=== PATIENT | male | born 1975 | race Caucasian/White ===

== ENCOUNTER → 2017-03-29 | Outpatient (CLI) | payer OTHER ==
[~2017-03-29] MED LIST: ACET-1256 PO; ASPI325T45 PO; EPP3/2 IM; KLN5X PO; NAPR-1169 PO
--- NOTE | 2017-03-29 16:46 | DIAGNOSTIC IMAGING REPORT ---
(CHEST) THORAX WITHOUT, ABDOMEN NO IV/ORAL CONT (CT) CT DOSE: 1711.32 mGy.cm HISTORY: Generalized abdominal PAIN, GASTRITIS, left upper quadrant PAIN TECHNIQUE: Multiaxial CT images of the chest were performed without contrast. A dose lowering technique was utilized adhering to the principles of ALARA. COMPARISON: None. FINDINGS: The central airways are patent. No pleural effusions. No pneumothorax. The lungs are clear. No fractures within the visualized osseous structures. The heart is normal in size. Normal caliber thoracic aorta. No mediastinal or hilar lymphadenopathy. No pneumoperitoneum or pneumatosis. No fractures within the visualized osseous structures of the abdomen. The unenhanced liver, gallbladder, pancreas, spleen, and adrenal glands are unremarkable. No renal stones. No hydronephrosis. A 3.8 cm hypodense lesion within the right kidney. This likely represents a cyst. A left circumaortic renal vein. No retroperitoneal lymphadenopathy. The visualized loops of bowel show no wall thickening or obstruction. There are few colonic diverticula. IMPRESSION: No significant abnormality within the chest or abdomen. Electronically signed by: Ab Thompson M.D. 03/29/2017 4:45 PM Dictated Date/Time: 03/29/2017 4:35 PM
== END | disposition home or self-care (01) ==
LOC: C.CTS 16:19
PROVIDERS: ATTEND Internal Medicine
DX: I10 Essential (primary) hypertension (principal); K29.70 Gastritis, unspecified, without bleeding; R10.9 Unspecified abdominal pain

== ENCOUNTER 2020-06-07 10:10 | Inpatient (IN) ==
[2020-06-07] MEDS ORDERED: PROMETHAZINE 25 MG/51 ML BAG IV STA (10:55)
[2020-06-07] MEDS ORDERED: HYDROmorphone INJ 0.5 MG/0.5 ML SYR IV STA ×2 (10:55→11:59)
--- NOTE | 2020-06-07 11:07 | Emergency Department Note ---
History of Present Illness General Chief complaint: Abdominal Pain Stated complaint: pancreatis/intense pain Time Seen by Provider: 06/07/20 10:44 Source: patient Mode of arrival: ambulatory Limitations: no limitations History of Present Illness Provider complaint: "pancreatitis" Onset (ago): hour(s) 2 Maximum Pain Intensity: 5 44-year-old male patient with significant past medical history of pancreatitis presents to the emergency department today with complaints of "pancreatitis". The patient reports nausea, epigastric abdominal pain, and hiccups. He states these began 2-1/2 hours prior to arrival. Patient denies any associated fever. He has had the same symptoms in the past, though less intense associated with acute pancreatitis. He states often, his pancreatitis flares up to 2 due to hydration. He denies eating fatty foods or drinking any alcohol recently. The patient did take 1 dose of Zofran 2 hours ago and denies improvement in his symptoms. The patient denies any urinary symptoms including blood, burning, frequency, hesitancy. He denies any diarrhea. He states he feels constipated, though his last bowel movement was today. He denies any associated vomiting. Patient does admit to smoking "medical marijuana". He states he was unable to take his pain medicine or his Phenergan by mouth due to his nausea and pain this morning. Patient denies any associated chest pain. He denies dyspnea. No recent fever. He rates his pain a 5/10 and describes it as sharp. Home Medications Medication Instructions Recorded Confirmed Type ondansetron 8 mg TRANSLINGUAL Q6 PRN 01/19/18 06/07/20 History dextroamphetamine-amphetamine 5 mg PO DAILY 03/16/20 06/07/20 History ibuprofen 800 mg PO TIDM 03/16/20 06/07/20 History promethazine 25 mg PO Q6 PRN 03/16/20 06/07/20 History oxycodone 5 mg PO Q4H PRN 06/07/20 06/07/20 History ropinirole 0.25 mg PO BID PRN 06/07/20 06/07/20 History sertraline 50 mg PO QAM 06/07/20 06/07/20 History Allergies Allergy/AdvReac Type Severity Reaction Status Date / Time hydrochlorothiazide AdvReac Severe PANCREATITI Verified 06/07/20 12:47 S Iodinated Contrast Media AdvReac Severe SNEEZE (CT Verified 06/07/20 12:47 dye) ketorolac AdvReac Unknown GI SYMPTOMS Verified 06/07/20 12:47 tramadol AdvReac Unknown "ears Verified 06/07/20 12:47 sensitive" morphine AdvReac Nausea Verified 06/07/20 12:47 Past Med/Surg History Medical History Depression Depression HTN (hypertension) Hypertension Mild obstructive sleep apnea SUDHA (obstructive sleep apnea) Recurrent pancreatitis Renal cyst Restless leg syndrome Surgical History (Updated 06/07/20 @ 13:16 by Erlinda Bhagat PA-C) H/O hemorrhoidectomy H/O wisdom tooth extraction History of cholecystectomy History of tonsillectomy Family History Mother Asthma Father Hypertension Prostate cancer Social History Smoking Status: Former smoker Number of Years Since Quit: 20; Second Hand Exposure: No; Do You Dip or Chew Tobacco: No; Hx Alcohol Use: No Hx Substance Use: No Preferred Language: Cymro Communication Ability: Effective Sport Internship Required: No Beliefs That Will Affect Care: None marital status: Current Living Situation: Spouse Other Information That Helps Us Care for You: No Feels Safe at Home: Yes Safety Concerns: Feels Safe At This Time Assistive Devices: Glasses Review of Systems A total of 10 systems reviewed and were otherwise negative Physical Exam Vital Signs Vital Signs - 24 hr 06/07/20 10:17 06/07/20 11:20 06/07/20 11:21 Temperature 36.3 C L Temperature Source Temporal Artery Scan Pulse Rate 61 77 Pulse Rate from SpO2 Sensor 79 Respiratory Rate 18 19 Respiratory Depth Normal Blood Pressure 141/111 H 202/137 H Blood Pressure Mean 121 158 Pulse Oximetry 100 99 Oxygen Delivery Method Room Air Room Air Room Air Sepsis Recent Fever Within 48 Hours No Sepsis New/Unexplained Change in Mental Status N/A Sepsis Action Taken by Nursing No Action Required 06/07/20 11:22 06/07/20 11:30 06/07/20 11:40 Temperature Temperature Source Pulse Rate 67 61 65 Pulse Rate from SpO2 Sensor 69 62 64 Respiratory Rate 14 10 L 13 Respiratory Depth Blood Pressure 187/121 H Blood Pressure Mean 143 Pulse Oximetry 100 95 98 Oxygen Delivery Method Room Air Room Air Room Air Sepsis Recent Fever Within 48 Hours Sepsis New/Unexplained Change in Mental Status Sepsis Action Taken by Nursing 06/07/20 11:50 06/07/20 12:00 06/07/20 12:01 Temperature Temperature Source Pulse Rate 58 L 60 79 Pulse Rate from SpO2 Sensor 58 L 59 L 61 Respiratory Rate 14 15 14 Respiratory Depth Blood Pressure 183/124 H Blood Pressure Mean 143 Pulse Oximetry 95 96 92 Oxygen Delivery Method Room Air Room Air Room Air Sepsis Recent Fever Within 48 Hours Sepsis New/Unexplained Change in Mental Status Sepsis Action Taken by Nursing 06/07/20 12:10 06/07/20 12:20 Temperature Temperature Source Pulse Rate 65 49 L Pulse Rate from SpO2 Sensor 65 49 L Respiratory Rate 10 L Respiratory Depth Blood Pressure Blood Pressure Mean Pulse Oximetry 100 99 Oxygen Delivery Method Room Air Room Air Sepsis Recent Fever Within 48 Hours Sepsis New/Unexplained Change in Mental Status Sepsis Action Taken by Nursing VITALS: Vitals are noted on the nurse's note and reviewed by myself. Vital signs stable. GENERAL: This is a 44-year-old white male, diaphoretic, moving throughout the room, bending over onto the bed on his knees, well-developed well-nourished. SKIN: The skin was without rashes, erythema, edema, or bruising. There is no tenting of the skin. Capillary refill less than 2 seconds. HEAD: Normocephalic atraumatic. EYES: Conjunctivae without injection, sclerae without icterus. NECK: Supple without nuchal rigidity. No lymphadenopathy. No JVD. HEART: Regular rate and rhythm without murmurs gallops or rubs. LUNGS: Clear to auscultation bilaterally without wheezes, rales or rhonchi. No retractions or accessory muscle use. ABDOMEN: Pt. states "Don't touch my abdomen". Refuses any examination. MUSCULOSKELETAL: No muscle atrophy, erythema, or edema noted. Full range of motion without joint tenderness in all extremities. No tenderness to palpation. Normal gait. Strength 5/5 throughout. NEURO: Patient was alert and oriented to person place and time. No focal neurological deficits. Course Course The patient was seen and evaluated as above. An order was placed for continuous cardiac monitoring. The monitor shows a normal sinus rhythm at a rate of 76 bpm. IV access obtained, labs drawn. Patient medicated with IV Dilaudid and Phenergan. Imaging performed and reviewed by myself and radiologist as noted. Labs reviewed by myself. I discussed the findings with the patient at bedside. He is continuing to complain of nausea and pain. He was medicated with a repeat dose of IV Dilaudid and Zofran. I discussed case with the electrical construction project manager. I [facility] to see and evaluate the patient for admission. Administered Medications Lactated Ringer's (Lr) 1,000 mls @ 200 mls/hr IV .Q5H DEE DEE Stop: 07/07/20 15:11 Last Admin: 06/07/20 15:58 Dose: 200 mls/hr Documented by: [id number] Discontinued Medications Hydromorphone HCl (Hydromorphone Inj 0.5 Mg/0.5 Ml Syr) 0.5 mg IV NOW STA Stop: 06/07/20 10:56 Last Admin: 06/07/20 11:16 Dose: 0.5 mg Documented by: [id number] Hydromorphone HCl (Hydromorphone Inj 0.5 Mg/0.5 Ml Syr) 0.5 mg IV NOW STA Stop: 06/07/20 12:00 Last Admin: 06/07/20 12:08 Dose: 0.5 mg Documented by: [id number] Promethazine HCl (Phenergan) 25 mg in 51 mls @ 204 mls/hr IV NOW STA Stop: 06/07/20 11:09 Last Infusion: 06/07/20 11:40 Dose: 0 mls/hr Documented by: [id number] Admin: 06/07/20 11:16 Dose: 204 mls/hr Documented by: [id number] Sodium Chloride (Nss 1000ml) 1,000 mls @ 999 mls/hr IV .Q1H1M ONE Stop: 06/07/20 13:18 Last Infusion: 06/07/20 14:01 Dose: 0 mls/hr Documented by: [id number] Admin: 06/07/20 12:58 Dose: 999 mls/hr Documented by: [id number] Ondansetron HCl (Ondansetron Inj 2 Mg/Ml 2 Ml Vial) 4 mg IV NOW STA Stop: 06/07/20 12:00 Last Admin: 06/07/20 12:08 Dose: 4 mg Documented by: [id number] Potassium Chloride (Potassium Chloride 10 Meq / 100ml Wtr) Confirm Administered Dose 20 meq IV .STK-MED ONE Stop: 06/07/20 12:51 Last Admin: 06/07/20 12:58 Dose: 20 meq Documented by: [id number] Medical Decision Making Differential Diagnosis Etiologies such as appendicitis, diverticulitis, obstruction, inflammatory bowel disease, renal colic, PUD, biliary pathology, pancreatitis, mesenteric ischemia, aortic pathology, infections, genitourinary, UTI, perforated viscus, as well as others were entertained. Medical Records Attestation: I reviewed the patient's medical records. Home Medications Current Medication List: was personally reviewed by me Laboratory Data Attestation: I reviewed the patient's lab results. Leukocytosis of 18,000. No anemia or thrombocytopenia. Renal, hepatic function electrolytes without significant abnormality. Troponin negative. Lipase greater than 3000. Alcohol negative. COVID-19 testing negative. Urinalysis negative for blood or evidence of infection. Result diagrams: 06/07/20 11:20 06/07/20 11:20 Lab Results 06/07/20 06/07/20 06/07/20 Range/Units 11:20 11:20 11:20 WBC 18.62 H (4.8-10.8) K/uL RBC 5.06 (4.7-6.1) M/uL Hgb 16.2 (14.0-18.0) g/dL Hct 45.1 (42-52) % MCV 89.1 (80-100) fL MCH 32.0 (25-34) pg MCHC 35.9 (32-36) g/dL RDW Std Deviation 42.4 (36.4-46.3) fL RDW Coeff of Che 13.0 (11.5-14.5) % Plt Count 242 (130-400) K/uL MPV 11.4 H (7.4-10.4) fL Immature Gran % (Auto) 0.3 % Neut % (Auto) 73.8 % Lymph % (Auto) 15.9 % [place] % (Auto) 9.5 % Eos % (Auto) 0.3 % Baso % (Auto) 0.2 % Neut # (Auto) 13.75 H (1.4-6.5) K/uL Lymph # (Auto) 2.96 (1.2-3.4) K/uL [place] # (Auto) 1.77 H (0.11-0.59) K/uL Eos # (Auto) 0.06 (0-0.5) K/uL Baso # (Auto) 0.03 (0-0.2) K/uL Immature Gran # (Auto) 0.05 H (0.00-0.02) K/uL Sodium 139 (136-145) mmol/L Potassium 3.0 L (3.5-5.1) mmol/L Chloride 103 (98-107) mmol/L Carbon Dioxide 27 (21-32) mmol/L Anion Gap 9.0 (3-11) BUN 12 (7-18) mg/dl Creatinine 0.96 (0.6-1.4) mg/dl Est Cr Clr Drug Dosing 115.0 ml/min Est GFR ( Amer) 110.2 Est GFR (Non-Af Amer) 95.1 BUN/Creatinine Ratio 12.6 (10-20) Glucose 120 H (70-99) mg/dl Calcium 9.3 (8.5-10.1) mg/dl Total Bilirubin 0.5 (0.2-1) mg/dl AST 25 (15-37) U/L ALT 42 (12-78) U/L Alkaline Phosphatase 73 (45-117) U/L Troponin I < 0.015 (0-0.045) ng/ml Total Protein 7.8 (6.4-8.2) gm/dl Albumin 4.7 (3.4-5.0) gm/dl Globulin 3.1 (2.5-4.0) gm/dl Albumin/Globulin Ratio 1.5 (0.9-2) Lipase 3050 H (73-393) U/L Urine Color Urine Appearance (Clear) Urine pH (4.5-7.5) Ur Specific [place] (1.000-1.030) Urine Protein (Negative) Urine Glucose (UA) (Negative) Urine Ketones (Negative) Urine Blood (Negative) Urine Nitrite (Negative) Urine Bilirubin (Negative) Urine Urobilinogen (Negative) Ur Leukocyte Esterase (Negative) Urine WBC (Auto) (0-5) /hpf Urine RBC (Auto) (0-4) /hpf U Hyaline Cast (Auto) (0-5) /lpf U Epithel Cells (Auto) (0-5) /lpf Urine Bacteria (Auto) (Negative) Ethyl Alcohol mg/dL < 3.0 (0-3) mg/dl COVID-19 Eval Order SARS-CoV-2 (PCR) (Negative) Influenza Type A (PCR) (Neg) Influenza Type B (PCR) (Neg) RSV (RT-PCR) (Neg) 06/07/20 06/07/20 06/07/20 Range/Units 12:18 12:18 12:22 WBC (4.8-10.8) K/uL RBC (4.7-6.1) M/uL Hgb (14.0-18.0) g/dL Hct (42-52) % MCV (80-100) fL MCH (25-34) pg MCHC (32-36) g/dL RDW Std Deviation (36.4-46.3) fL RDW Coeff of Che (11.5-14.5) % Plt Count (130-400) K/uL MPV (7.4-10.4) fL Immature Gran % (Auto) % Neut % (Auto) % Lymph % (Auto) % [place] % (Auto) % Eos % (Auto) % Baso % (Auto) % Neut # (Auto) (1.4-6.5) K/uL Lymph # (Auto) (1.2-3.4) K/uL [place] # (Auto) (0.11-0.59) K/uL Eos # (Auto) (0-0.5) K/uL Baso # (Auto) (0-0.2) K/uL Immature Gran # (Auto) (0.00-0.02) K/uL Sodium (136-145) mmol/L Potassium (3.5-5.1) mmol/L Chloride (98-107) mmol/L Carbon Dioxide (21-32) mmol/L Anion Gap (3-11) BUN (7-18) mg/dl Creatinine (0.6-1.4) mg/dl Est Cr Clr Drug Dosing ml/min Est GFR ( Amer) Est GFR (Non-Af Amer) BUN/Creatinine Ratio (10-20) Glucose (70-99) mg/dl Calcium (8.5-10.1) mg/dl Total Bilirubin (0.2-1) mg/dl AST (15-37) U/L ALT (12-78) U/L Alkaline Phosphatase (45-117) U/L Troponin I (0-0.045) ng/ml Total Protein (6.4-8.2) gm/dl Albumin (3.4-5.0) gm/dl Globulin (2.5-4.0) gm/dl Albumin/Globulin Ratio (0.9-2) Lipase (73-393) U/L Urine Color Yellow Urine Appearance Cloudy A (Clear) Urine pH 7.5 (4.5-7.5) Ur Specific [place] 1.015 (1.000-1.030) Urine Protein Negative (Negative) Urine Glucose (UA) Negative (Negative) Urine Ketones Negative (Negative) Urine Blood Negative (Negative) Urine Nitrite Negative (Negative) Urine Bilirubin Negative (Negative) Urine Urobilinogen Negative (Negative) Ur Leukocyte Esterase Negative (Negative) Urine WBC (Auto) 0 (0-5) /hpf Urine RBC (Auto) 0-4 (0-4) /hpf U Hyaline Cast (Auto) 0 (0-5) /lpf U Epithel Cells (Auto) 0-5 (0-5) /lpf Urine Bacteria (Auto) Negative (Negative) Ethyl Alcohol mg/dL (0-3) mg/dl COVID-19 Eval Order CovFluRsv at [facility] SARS-CoV-2 (PCR) NEGATIVE (Negative) Influenza Type A (PCR) Negative (Neg) Influenza Type B (PCR) Negative (Neg) RSV (RT-PCR) Negative (Neg) Imaging Data Radiologist's Impression: Chest X-Ray 06/07/20 10:56 XR chest 1V portable CLINICAL HISTORY: Epigastric pain. COMPARISON STUDY: Chest radiograph December 15, 2017. FINDINGS: Lung volumes are normal. Lungs are clear. There is no pneumothorax or pleural effusion. Cardiac size is normal. Mediastinal contours are normal. There is no evidence for pulmonary edema. There is no lucency under the hemidiaphragms to suggest pneumoperitoneum on this upright chest radiograph. IMPRESSION: No acute cardiopulmonary findings. ACT 112: Negative or not required by law. Electronically signed by: Grant Del Rosario M.D. 06/07/2020 11:45 AM ECG Data Attestation: I personally reviewed and interpreted this ECG as follows: Indication: + abdominal pain Rate (beats per minute): 61 Rhythm: + sinus with SA ECG [place]: + Normal ECG ST segments: no ST depression, no ST elevation and no T-wave inversions Comparison ECG Date: from (01/03/2018) Change: no significant change Blood Pressure Blood Pressure Findings: Elevated blood pressure Blood Pressure Disposition: elevated BP felt to be situational MDM Narrative This 44-year-old male patient presents to the emergency department today for evaluation of abdominal pain. Patient does have a history of acute pancreatitis. His pain is consistent with pancreatitis he has experienced in the past. Patient is complaining of nausea, no significant vomiting. He is afebrile. He does have a leukocytosis of 18,000. His lipase is elevated at greater than 3000. He was medicated with 2 doses of IV analgesics and 2 doses of IV antiemetics. I do not feel the patient will be able to manage his pain or nausea at home and recommended inpatient care. The patient was agreeable. He will be admitted to the [facility] hospitalist service. Please see hospitalist dictation regarding ongoing management care of this patient. The chart was completed utilizing [employer] Speech voice recognition software. Grammatical errors, random word insertions, pronoun errors, and incomplete sentences are an occasional consequence of this system due to software limitations, ambient noise, and hardware issues. Any formal questions or concerns about the content, text, or information contained within the body of this dictation should be directly addressed to the provider for clarification. Impression & Plan Recurrent pancreatitis Discharge Plan Visit Data Chief Complaint: Abdominal Pain Stated Complaint: pancreatis/intense pain ED Provider: Trace Hernandes ED Midlevel Provider: Nae Armstrong Discharge Problem: Recurrent pancreatitis Patient Disposition: Admitted As Inpatient Discharge Instructions Interventions: ED Discharge Assessment Last Done: 06/07/20 14:37
[2020-06-07 11:29] LABS: Basophils # (auto) 0.03 K/uL (0-0.2); Basophils % (auto) 0.2 %; Eosinophils # (auto) 0.06 K/uL (0-0.5); Eosinophils % (auto) 0.3 %; Hematocrit (blood only) 45.1 % (42-52); Hemoglobin 16.2 g/dL (14.0-18.0); Immature Granulocytes # (auto) 0.05 K/uL (0.00-0.02); Immature Granulocytes % (auto) 0.3 %; Lymphocytes # (auto) 2.96 K/uL (1.2-3.4); Lymphocytes % (auto) 15.9 %; Mean Corpuscular Hgb Conc 35.9 g/dL (32-36); Mean Corpuscular Volume 89.1 fL (80-100); Mean Platelet Volume 11.4 fL (7.4-10.4); Monocytes # (auto) 1.77 K/uL (0.11-0.59); Monocytes % (auto) 9.5 %; Neutrophils # (auto) 13.75 K/uL (1.4-6.5); Neutrophils % (auto) 73.8 %; Platelet Count 242 K/uL (130-400); RDW Standard Deviation 42.4 fL (36.4-46.3); Red Blood Count 5.06 M/uL (4.7-6.1); White Blood Count 18.62 K/uL (4.8-10.8)
--- NOTE | 2020-06-07 11:46 | XRay Report ---
XR chest 1V portable CLINICAL HISTORY: Epigastric pain. COMPARISON STUDY: Chest radiograph December 15, 2017. FINDINGS: Lung volumes are normal. Lungs are clear. There is no pneumothorax or pleural effusion. Car diac size is normal. Mediastinal contours are normal. There is no evidence for pulmonary edema. There is no lucency under the hemidiaphragms to suggest pneumoperitoneum on this upright chest radiograph. IMPRESSION: No acute cardiopulmonary findings. ACT 112: Negative or not required by law. Electronically signed by: Grant Del Rosario M.D. 06/07/2020 11:45 AM
[2020-06-07 11:47] LABS: Alanine Aminotransferase 42 U/L (12-78); Albumin Level 4.7 gm/dl (3.4-5.0); Aspartate Aminotransferase 25 U/L (15-37); BUN Creatinine Ratio 12.6 (10-20); Blood Urea Nitrogen 12 mg/dl (7-18); Calcium 9.3 mg/dl (8.5-10.1); Carbon Dioxide 27 mmol/L (21-32); Chloride 103 mmol/L (98-107); Est GFR (African American) 110.2; Est GFR (Non-African American) 95.1; Glucose 120 mg/dl (70-99); Sodium 139 mmol/L (136-145)
[2020-06-07 11:52] LABS: Albumin Globulin Ratio 1.5 (0.9-2); Alkaline Phosphatase 73 U/L (45-117); Bilirubin,Total 0.5 mg/dl (0.2-1); Globulin 3.1 gm/dl (2.5-4.0); Lipase 3050 U/L (73-393); Total Protein 7.8 gm/dl (6.4-8.2); Troponin I < 0.015 ng/ml (0-0.045)
[2020-06-07] MEDS ORDERED: ONDANSETRON INJ 2 MG/ML 2 ML VIAL IV STA (11:59)
[2020-06-07] MEDS ORDERED: SODIUM CHLORIDE 0.9% 1000ML 1,000 ML IV ONE (12:18)
[2020-06-07 12:41] LABS: Appearance Urine Cloudy (Clear); Bacteria Urine Automated Negative (Negative); Bilirubin Urine Negative (Negative); Blood Urine Negative (Negative); Cast Urine Automated 0 /lpf (0-5); Color Urine Yellow; Epithelial Cell Urine Auto 0-5 /lpf (0-5); Glucose Urine UA Negative (Negative); Ketones Urine Negative (Negative); Leukocyte Esterase Urine Negative (Negative); Nitrite Urine Negative (Negative); Protein Urine Negative (Negative); RBC Urine Automated 0-4 /hpf (0-4); Specific Gravity Urine 1.015 (1.000-1.030); Urobilinogen Urine Negative (Negative); WBC Urine Automated 0 /hpf (0-5); pH Urine 7.5 (4.5-7.5)
[2020-06-07] MEDS ORDERED: POTASSIUM CHLORIDE 10 MEQ / 100ML WTR IV ONE (12:50)
--- NOTE | 2020-06-07 13:19 | History & Physical Report ---
Date of Service June 07, 2020 Assessment & Plan (1) Recurrent acute pancreatitis: This is a 44-year-old male who has significant past medical history of recurrent idiopathic pancreatitis with history of cholecystectomy, RLS on medical marijuana, mild SUDHA noncompliant with CPAP, HTN off oral antihypertensives, depression who presents ED secondary to abdominal pain x1 day. Patient signs and symptoms consistent with acute recurrent pancreatitis. Unknown etiology. Had formal w/u in past. History of recurrent pancreatitis in past which seem to be improved with cholecystectomy. Denies ETOH or significant NSAID use Admit to med/surg consult GI NPO except meds/sips LR @ 200 cc/hr IV antiemetics IV pain meds lipid panel in a.m. Hypokalemia replete with 10meq K rider x 2 in ED 10meq KCL x 4 orally follow K Leukocytosis likely reactive in setting of acute pancreatitis no s/sx of infection, sirs criteria not met (documented RR > 24 x 2; however per my eval RR 20) RLS prn requip medical marijuana at home SUDHA noncompliant with cpap Depression continue zoloft Dvt ppx: scd/teds for now, monitor daily need for chemical prophylaxis Dispo: med/surg, likely d/c to home in 1-2 days if symptoms improve and tolerating diet PCP: Clarissa FULL CODE Pt was seen and examined in collaboration with Dr. Castellanos, please see addendum History of Present Illness Chief Complaint: Abdominal pain x1 day. Primary Care Provider: Hudson Romo MD This is a 44-year-old male who has significant past medical history of recurrent idiopathic pancreatitis with history of cholecystectomy, RLS on medical marijuana, mild SUDHA noncompliant with CPAP, HTN off oral antihypertensives, depression who presents ED secondary to abdominal pain x1 day. Of significance he states approximately 30 to 40 days ago he was seen in ER secondary to early onset acute pancreatitis and attributed this to dehydration and 1 glass of champagne celebrating his anniversary. He was hydrated and symptoms resolved. Today he is unsure what sparked event. He denies any recent alcohol use, but he is on medical marijuana. Patient elicits he woke up first thing this morning and felt okay when he developed severe nausea and epigastric, nonradiating abdominal pain. Pain was described as a stab, nonradiating, 10/10 at its worst, nothing made better or worse. He lists the nausea was worse than the pain. He denies any vomiting. He did have a bowel movement this morning and while in ED. He feels slightly constipated, but bowels are not hard. He denies melena or hematochezia. He felt chilled and sweaty today but denies any documented fever. He denies any lightheadedness, dizziness, syncope, chest pain, shortness of breath, cough, URI symptoms, emesis, hematemesis, dysuria, increased urinary frequency with urination. His last meal was dinner last evening which was fish sticks. He admits ever since having a cholecystectomy he had been doing very well in regards to his pancreatitis until these most recent flares. He was recently on Trintellix for depression but had significant nausea. Once this was discontinued his nausea subsided. He does take NSAIDs occasionally ibuprofen. He does have chronic abdominal pain for which she takes oxycodone for. In ED patient remained hemodynamically stable although significantly hypertensive in response to pain. He had leukocytosis 18.62k, K3.0, lipase 3050. His urinalysis and chest x-ray was negative. Ethyl alcohol was negative. Chest x-ray was negative for acute abnormality. Given patient's history and clinically symptoms appear consistent with acute pancreatitis. In ED he received IV antiemetics as well as pain medication he is feeling much improved since arrival. Allergies Allergy/AdvReac Type Severity Reaction Status Date / Time hydrochlorothiazide AdvReac Severe PANCREATITI Verified 06/07/20 12:47 S Iodinated Contrast Media AdvReac Severe SNEEZE (CT Verified 06/07/20 12:47 dye) ketorolac AdvReac Unknown GI SYMPTOMS Verified 06/07/20 12:47 tramadol AdvReac Unknown "ears Verified 06/07/20 12:47 sensitive" morphine AdvReac Nausea Verified 06/07/20 12:47 Home Medications Medication Instructions Recorded Confirmed Type ondansetron 8 mg TRANSLINGUAL Q6 PRN 01/19/18 06/07/20 History dextroamphetamine-amphetamine 5 mg PO DAILY 03/16/20 06/07/20 History ibuprofen 800 mg PO TIDM 03/16/20 06/07/20 History promethazine 25 mg PO Q6 PRN 03/16/20 06/07/20 History oxycodone 5 mg PO Q4H PRN 06/07/20 06/07/20 History ropinirole 0.25 mg PO BID PRN 06/07/20 06/07/20 History sertraline 50 mg PO QAM 06/07/20 06/07/20 History Past Med/Surg History Medical History Depression Depression HTN (hypertension) Hypertension Mild obstructive sleep apnea SUDHA (obstructive sleep apnea) Recurrent pancreatitis Renal cyst Restless leg syndrome Surgical History (Updated 06/07/20 @ 13:16 by Erlinda Bhagat PA-C) H/O hemorrhoidectomy H/O wisdom tooth extraction History of cholecystectomy History of tonsillectomy Family History Mother Asthma Father Hypertension Prostate cancer Social History Smoking Status: Former smoker Number of Years Since Quit: 20; Second Hand Exposure: No; Do You Dip or Chew Tobacco: No; Hx Alcohol Use: No Hx Substance Use: No Preferred Language: Tristanian Communication Ability: Effective Patent Prosecution Paralegal Required: No Beliefs That Will Affect Care: None marital status: Current Living Situation: Spouse Other Information That Helps Us Care for You: No Feels Safe at Home: Yes Safety Concerns: Feels Safe At This Time Assistive Devices: Glasses Review of Systems 2 Review of Systems: All systems reviewed & are unremarkable except as noted in HPI & below Physical Exam Physical Exam: Constitutional: WD/WN, vitals as above, NAD, sitting up in bed, pleasant, conversing easily Head: Normocephalic, Atraumatic Eyes: PERRL, conjunctivae normal, anicteric sclerae ENMT: external ear and nose normal, oropharynx normal Neck: trachea midline, no thyromegaly normal visual inspection Respiratory: normal respiratory effort, lungs clear to auscultation, no wheeze, rales, rhonchi. Normal insp/exp effort, no accessory muscle use Cardiovascular: RRR, no murmur, no edema Vessels: no JVD or carotid bruit Chest: normal inspection of chest Abdomen: normal bowel sounds, soft, nontender, no hepatosplenomegaly Musculoskeletal: no cyanosis or clubbing, extremities motor strength 5/5 Skin: no rashes, warm and dry normal turgor Neurologic: PERRL, EOMI, accommodation nl, no face palsy, no dysarthria CN's II-XI intact bilaterally and moves all extremities Psychiatric: A+Ox3, euthymic affect Lymphatic: no cervical or axillary lymphadenopathy : deferred Results & Data Results & Data ([place]) Vital Signs (Past 12 Hours) Vital Signs Temp Pulse Resp BP Pulse Ox 06/07/20 12:50 77 29 H 99 06/07/20 12:40 72 26 H 99 06/07/20 12:30 79 23 149/89 H 99 06/07/20 12:20 49 L 99 06/07/20 12:10 65 10 L 100 06/07/20 12:01 79 14 92 06/07/20 12:00 60 15 183/124 H 96 06/07/20 11:50 58 L 14 95 06/07/20 11:40 65 13 98 06/07/20 11:30 61 10 L 187/121 H 95 06/07/20 11:22 67 14 100 06/07/20 11:20 77 19 202/137 H 99 06/07/20 10:17 36.3 C L 61 18 141/111 H 100 Diagnostic Findings Chest X-Ray 06/07/20 10:56 XR chest 1V portable CLINICAL HISTORY: Epigastric pain. COMPARISON STUDY: Chest radiograph December 15, 2017. FINDINGS: Lung volumes are normal. Lungs are clear. There is no pneumothorax or pleural effusion. Cardiac size is normal. Mediastinal contours are normal. There is no evidence for pulmonary edema. There is no lucency under the hemidiaphragms to suggest pneumoperitoneum on this upright chest radiograph. IMPRESSION: No acute cardiopulmonary findings. ACT 112: Negative or not required by law. Electronically signed by: Grant Del Rosario M.D. 06/07/2020 11:45 AM Medications Administered Sodium Chloride (Nss 1000ml) 1,000 mls @ 999 mls/hr IV .Q1H1M ONE Stop: 06/07/20 13:18 Last Admin: 06/07/20 12:58 Dose: 999 mls/hr Documented by: [id number] Discontinued Medications Hydromorphone HCl (Hydromorphone Inj 0.5 Mg/0.5 Ml Syr) 0.5 mg IV NOW STA Stop: 06/07/20 10:56 Last Admin: 06/07/20 11:16 Dose: 0.5 mg Documented by: [id number] Hydromorphone HCl (Hydromorphone Inj 0.5 Mg/0.5 Ml Syr) 0.5 mg IV NOW STA Stop: 06/07/20 12:00 Last Admin: 06/07/20 12:08 Dose: 0.5 mg Documented by: [id number] Promethazine HCl (Phenergan) 25 mg in 51 mls @ 204 mls/hr IV NOW STA Stop: 06/07/20 11:09 Last Infusion: 06/07/20 11:40 Dose: 0 mls/hr Documented by: [id number] Admin: 06/07/20 11:16 Dose: 204 mls/hr Documented by: [id number] Ondansetron HCl (Ondansetron Inj 2 Mg/Ml 2 Ml Vial) 4 mg IV NOW STA Stop: 06/07/20 12:00 Last Admin: 06/07/20 12:08 Dose: 4 mg Documented by: [id number] Potassium Chloride (Potassium Chloride 10 Meq / 100ml Wtr) Confirm Administered Dose 20 meq IV .STK-MED ONE Stop: 06/07/20 12:51 Last Admin: 06/07/20 12:58 Dose: 20 meq Documented by: [id number] ECG Rate (beats per minute): 61 Rhythm: normal sinus COVID-19 Results Results COVID-19 Adm Lab Results: RBC 5.06 M/uL (4.7-6.1) 06/07/20 WBC 18.62 K/uL (4.8-10.8) H 06/07/20 Hgb 16.2 g/dL (14.0-18.0) 06/07/20 Hct 45.1 % (42-52) 06/07/20 Plt Count 242 K/uL (130-400) 06/07/20 Neutrophils (%) (Auto) 73.8 % 06/07/20 Lymphocytes (%) (Auto) 15.9 % 06/07/20 Monocytes # (Auto) 1.77 K/uL (0.11-0.59) H 06/07/20 Eosinophils # (Auto) 0.06 K/uL (0-0.5) 06/07/20 Immature Granulocyte % (Auto) 0.3 % 06/07/20 Neutrophils # (Auto) 13.75 K/uL (1.4-6.5) H 06/07/20 Lymphocytes # (Auto) 2.96 K/uL (1.2-3.4) 06/07/20 Monocytes # (Auto) 1.77 K/uL (0.11-0.59) H 06/07/20 Eosinophils # (Auto) 0.06 K/uL (0-0.5) 06/07/20 Basophils # (Auto) 0.03 K/uL (0-0.2) 06/07/20 Immature Granulocyte # (Auto) 0.05 K/uL (0.00-0.02) H 06/07/20 Na 139 mmol/L (136-145) 06/07/20 K 3.0 mmol/L (3.5-5.1) L 06/07/20 Cl 103 mmol/L (98-107) 06/07/20 CO2 27 mmol/L (21-32) 06/07/20 Anion Gap 9.0 (3-11) 06/07/20 BUN 12 mg/dl (7-18) 06/07/20 Creatinine 0.96 mg/dl (0.6-1.4) 06/07/20 BUN/Creatinine Ratio 12.6 (10-20) 06/07/20 Glucose Level 120 mg/dl (70-99) H 06/07/20 Ca 9.3 mg/dl (8.5-10.1) 06/07/20 Total Bilirubin 0.5 mg/dl (0.2-1) 06/07/20 AST/SGOT 25 U/L (15-37) 06/07/20 ALT/SGPT 42 U/L (12-78) 06/07/20 Alkaline Phosphatase 73 U/L (45-117) 06/07/20 Total Protein 7.8 gm/dl (6.4-8.2) 06/07/20 Albumin 4.7 gm/dl (3.4-5.0) 06/07/20 Globulin 3.1 gm/dl (2.5-4.0) 06/07/20 Albumin/Globulin Ratio 1.5 (0.9-2) 06/07/20 Troponin I < 0.015 ng/ml (0-0.045) 06/07/20 COVID-19 PCR NEGATIVE (Negative) 06/07/20 Influenza Virus Type A (PCR) Negative (Neg) 06/07/20 Influenza Virus Type B (PCR) Negative (Neg) 06/07/20 Chest X-Ray 06/07/20 Code Status & VTE Plan Code Status Full Code VTE Prophylaxis Plan VTE Prophylaxis will be ordered: Yes Supervising Physician Co-Signing Physician Notes Care coordinated with Erlinda Bhagat PA-C. Agree with above note. Patient seen and examined. Please refer to her notes for full details. Vital signs reviewed. Physical exam: General exam: Alert and oriented. Not in acute distress. CVS: S1 and S2 heard, regular rate and rhythm, no murmurs. RS: Clear to auscultation, no wheezing or crackles. ABD: Soft, bowel sounds present, epigastric tenderness present , no distention. [employer]: Nonfocal. EXT: No edema, no erythema. Labs: Reviewed. Assessment and plan: 44M with hx of recurrent idiopathic pancreatitis s/p cholecystectomy, hx of restless leg syndrome, depression presents with abdominal pain and found to have elevated lipase. Acute recurrent pancreatitis aggressive fluids LR@200ml/hr iv pain meds and antiemetics npo GI consult Imaging studies as per GI Hypokalemia will replace will follow labs Other diagnosis and plan of care as per Erlinda. ISABEL Bhagat. Marshall moscoso MD.
[2020-06-07 13:26] LABS: Influenza A virus by PCR Negative (Neg); Influenza B virus by PCR Negative (Neg); RSV by PCR Negative (Neg); SARS CoV2 RNA(COVID-19) InHosp NEGATIVE (Negative)
[2020-06-07] MEDS ORDERED: ONDANSETRON INJ 2 MG/ML 2 ML VIAL IV PRN (15:12)
[2020-06-07] MEDS ORDERED: rOPINIRole HCL 0.25 MG TABLET PO PRN (15:12)
[2020-06-07] MEDS ORDERED: POTASSIUM CHLORIDE CRTAB 20 MEQ TABCR PO STA (15:15)
[2020-06-07] MEDS ORDERED: POTASSIUM CHLORIDE / WTR 10 MEQ/100 ML PLCT IV SCH (15:30)
[2020-06-07] MEDS: LACTATED RINGER'S 1,000 ML IV SCH ×2 (15:58→23:24)
[2020-06-07] MEDS: HYDROmorphone INJ 0.5 MG/0.5 ML SYR IV PRN ×2 (16:05→21:48)
--- NOTE | 2020-06-07 16:43 | Gastrointestinal Consultation ---
Date of Consultation June 07, 2020 Assessment & Plan (1) Recurrent acute pancreatitis: This is a 44 y/o male with history of recurrent idiopathic pancreatitis, s/p CCY, now admitted for recurrent epigastric pain and elevated lipase c/w acute pancreatitis. On exam upper abd is moderately tender but soft. Etiology unclear but contributing factor may be medications, including recent switch to Zoloft for h/o RLS as that has been associated with instances of pancreatitis; would also like to r/o any obstructing biliary pathology, hypertriglyceridemia as well. - Would keep Keep NPO - Agree with supportive care with IVF as per primary team - Triglyceride level pending - Analgesia as per primary service - Antiemetics as per primary service - Will check MRCP now - If that is unremarkable, would look to arrange EUS as an outpt for further evaluation - Please monitor and correct electrolytes including potassium Thank you for allowing us to participate in the care of this patient. Please call with any acute changes, questions or concerns. Please see addendum below with additional recommendation from my supervising physician. Supervising Physician Co-Signing Physician Notes I saw and evaluated the patient. We are consulted for acute onset abdominal discomfort. The patient has a history of recurrent pancreatitis and was last admitted for the same presentation several years ago. He has a past medical history notable for restless leg syndrome for which he maintains himself on several medications alternating through the month. The patient did have his antidepressant recently changed to Zoloft. The patient notes having sudden onset discomfort this morning that was unremitting associated with nausea. Physical examination Mild distress Mild abdominal tenderness Impression: Patient with a history of acute pancreatitis, he has had several recurrences over the years for this but it has been sometime since his most recent admission. Perhaps his pancreatitis is related to medication such as Z oloft we would also recommend further evaluation to ensure that he does not have any pathology such as common duct stones could cause his symptoms. Recommendations Continue with IV hydration as you are doing Continue with pain control as you are doing, consider addition of Levsin sublingual 3-4 times daily MRCP to be arranged If MRCP is negative would then recommend outpatient endoscopic ultrasound in 6 to 8 weeks Discontinue Zoloft Thank you for this consultation please call with any questions History of Present Illness Reason for Consultation: Acute pancreatitis; recurrent Attending Physician: Marshall Castellanos MD History of Present Illness This is a 44 y/o male with h/o recurrent idiopathic pancreatitis, h/o cholecystectomy, RLS on multiple tx including medical marijuana, HTN, depression and others admitted today with recurrent nausea, epigastric abd pain. Upon arrival to the ER labs notable for lipase > 3,000 with normal LFTs, WBC 18.6k, K 3.0. COVID testing is negative. Pt admitted for acute pancreatitis and started on LR @ 200 cc/hr, antiemetics and analgesia. CXR with no acute changes. He's complaning of waxing and waning epigastric pain that he describes as sharp/twisting. He has denied vomiting, chest pain, dyspnea, fever, jaundice. Pt states his most recent medication change has been the addition of Zoloft approx 2 months ago. Pt denies ETOH, NSAID use. Previously was evaluated for history of recurrent pancreatitis, has had negative AIP serologies, IgG4 subclasses and genetic markers, multiple imaging studies and previous EUS in 2018. Allergies Allergy/AdvReac Type Severity Reaction Status Date / Time hydrochlorothiazide AdvReac Severe PANCREATITI Verified 06/07/20 12:47 S Iodinated Contrast Media AdvReac Severe SNEEZE (CT Verified 06/07/20 12:47 dye) ketorolac AdvReac Unknown GI SYMPTOMS Verified 06/07/20 12:47 tramadol AdvReac Unknown "ears Verified 06/07/20 12:47 sensitive" morphine AdvReac Nausea Verified 06/07/20 12:47 Home Medications Medication Instructions Recorded Confirmed Type ondansetron 8 mg TRANSLINGUAL Q6 PRN 01/19/18 06/07/20 History dextroamphetamine-amphetamine 5 mg PO DAILY 03/16/20 06/07/20 History ibuprofen 800 mg PO TIDM 03/16/20 06/07/20 History promethazine 25 mg PO Q6 PRN 03/16/20 06/07/20 History oxycodone 5 mg PO Q4H PRN 06/07/20 06/07/20 History ropinirole 0.25 mg PO BID PRN 06/07/20 06/07/20 History sertraline 50 mg PO QAM 06/07/20 06/07/20 History Patient History Medical History Depression Depression HTN (hypertension) Hypertension Mild obstructive sleep apnea SUDHA (obstructive sleep apnea) Recurrent pancreatitis Renal cyst Restless leg syndrome Surgical History (Updated 06/07/20 @ 13:16 by Erlinda Bhagat PA-C) H/O hemorrhoidectomy H/O wisdom tooth extraction History of cholecystectomy History of tonsillectomy Family History Mother Asthma Father Hypertension Prostate cancer Social History Smoking Status: Former smoker Number of Years Since Quit: 20; Second Hand Exposure: No; Do You Dip or Chew Tobacco: No; Hx Alcohol Use: No Hx Substance Use: No Preferred Language: Italian Communication Ability: Effective Blade Changer Required: No Beliefs That Will Affect Care: None marital status: Current Living Situation: Spouse Other Information That Helps Us Care for You: No Feels Safe at Home: Yes Safety Concerns: Feels Safe At This Time Assistive Devices: Glasses Review of Systems Review of Systems: All systems reviewed & are unremarkable except as noted in HPI & below Physical Exam Constitutional: WD/WN, vitals as above Eyes: + anicteric sclerae Respiratory: normal respiratory effort, lungs clear to auscultation Cardiovascular: Rate/Rhythm: regular rate and regular rhythm Heart Sounds: no murmur Gastrointestinal (Abdomen): Inspection/Auscultation: normal bowel sounds; abdomen not distended Percussion/Palpation: abdomen soft Pt with moderate epigastric tenderness with some guarding but no rebound, peritoneal signs Skin: no rashes, warm and dry Psychiatric: A+Ox3, euthymic affect Results & Data ([facility]) Vital Signs (Past 12 Hours) Vital Signs Temp Pulse Pulse Resp BP BP Pulse Ox 06/07/20 15:15 36.8 C 76 18 158/88 H 97 06/07/20 14:20 64 17 95 06/07/20 14:16 86 30 H 06/07/20 13:31 82 18 98 06/07/20 13:30 78 18 157/99 H 96 06/07/20 13:20 71 12 98 06/07/20 13:10 74 18 97 06/07/20 13:01 71 19 98 06/07/20 13:00 73 15 149/100 H 96 06/07/20 12:50 77 29 H 99 06/07/20 12:40 72 26 H 99 06/07/20 12:30 79 23 149/89 H 99 06/07/20 12:20 49 L 99 06/07/20 12:10 65 10 L 100 06/07/20 12:01 79 14 92 06/07/20 12:00 60 15 183/124 H 96 06/07/20 11:50 58 L 14 95 06/07/20 11:40 65 13 98 06/07/20 11:30 61 10 L 187/121 H 95 06/07/20 11:22 67 14 100 06/07/20 11:20 77 19 202/137 H 99 06/07/20 10:17 36.3 C L 61 18 141/111 H 100 Laboratory Results 06/07/20 06/07/20 06/07/20 Range/Units 12:22 12:18 12:18 WBC (4.8-10.8) K/uL RBC (4.7-6.1) M/uL Hgb (14.0-18.0) g/dL Hct (42-52) % MCV (80-100) fL MCH (25-34) pg MCHC (32-36) g/dL RDW Std Deviation (36.4-46.3) fL RDW Coeff of Che (11.5-14.5) % Plt Count (130-400) K/uL MPV (7.4-10.4) fL Immature Gran % (Auto) % Neut % (Auto) % Lymph % (Auto) % [place] % (Auto) % Eos % (Auto) % Baso % (Auto) % Neut # (Auto) (1.4-6.5) K/uL Lymph # (Auto) (1.2-3.4) K/uL [place] # (Auto) (0.11-0.59) K/uL Eos # (Auto) (0-0.5) K/uL Baso # (Auto) (0-0.2) K/uL Immature Gran # (Auto) (0.00-0.02) K/uL Sodium (136-145) mmol/L Potassium (3.5-5.1) mmol/L Chloride (98-107) mmol/L Carbon Dioxide (21-32) mmol/L Anion Gap (3-11) BUN (7-18) mg/dl Creatinine (0.6-1.4) mg/dl Est Cr Clr Drug Dosing ml/min Est GFR ( Amer) Est GFR (Non-Af Amer) BUN/Creatinine Ratio (10-20) Glucose (70-99) mg/dl Calcium (8.5-10.1) mg/dl Total Bilirubin (0.2-1) mg/dl AST (15-37) U/L ALT (12-78) U/L Alkaline Phosphatase (45-117) U/L Troponin I (0-0.045) ng/ml Total Protein (6.4-8.2) gm/dl Albumin (3.4-5.0) gm/dl Globulin (2.5-4.0) gm/dl Albumin/Globulin Ratio (0.9-2) Lipase (73-393) U/L Urine Color Yellow Urine Appearance Cloudy A (Clear) Urine pH 7.5 (4.5-7.5) Ur Specific [place] 1.015 (1.000-1.030) Urine Protein Negative (Negative) Urine Glucose (UA) Negative (Negative) Urine Ketones Negative (Negative) Urine Blood Negative (Negative) Urine Nitrite Negative (Negative) Urine Bilirubin Negative (Negative) Urine Urobilinogen Negative (Negative) Ur Leukocyte Esterase Negative (Negative) Urine WBC (Auto) 0 (0-5) /hpf Urine RBC (Auto) 0-4 (0-4) /hpf U Hyaline Cast (Auto) 0 (0-5) /lpf U Epithel Cells (Auto) 0-5 (0-5) /lpf Urine Bacteria (Auto) Negative (Negative) Ethyl Alcohol mg/dL (0-3) mg/dl COVID-19 Eval Order CovFluRsv at [facility] SARS-CoV-2 (PCR) NEGATIVE (Negative) Influenza Type A (PCR) Negative (Neg) Influenza Type B (PCR) Negative (Neg) RSV (RT-PCR) Negative (Neg) 06/07/20 06/07/20 06/07/20 Range/Units 11:20 11:20 11:20 WBC 18.62 H (4.8-10.8) K/uL RBC 5.06 (4.7-6.1) M/uL Hgb 16.2 (14.0-18.0) g/dL Hct 45.1 (42-52) % MCV 89.1 (80-100) fL MCH 32.0 (25-34) pg MCHC 35.9 (32-36) g/dL RDW Std Deviation 42.4 (36.4-46.3) fL RDW Coeff of Che 13.0 (11.5-14.5) % Plt Count 242 (130-400) K/uL MPV 11.4 H (7.4-10.4) fL Immature Gran % (Auto) 0.3 % Neut % (Auto) 73.8 % Lymph % (Auto) 15.9 % [place] % (Auto) 9.5 % Eos % (Auto) 0.3 % Baso % (Auto) 0.2 % Neut # (Auto) 13.75 H (1.4-6.5) K/uL Lymph # (Auto) 2.96 (1.2-3.4) K/uL [place] # (Auto) 1.77 H (0.11-0.59) K/uL Eos # (Auto) 0.06 (0-0.5) K/uL Baso # (Auto) 0.03 (0-0.2) K/uL Immature Gran # (Auto) 0.05 H (0.00-0.02) K/uL Sodium 139 (136-145) mmol/L Potassium 3.0 L (3.5-5.1) mmol/L Chloride 103 (98-107) mmol/L Carbon Dioxide 27 (21-32) mmol/L Anion Gap 9.0 (3-11) BUN 12 (7-18) mg/dl Creatinine 0.96 (0.6-1.4) mg/dl Est Cr Clr Drug Dosing 115.0 ml/min Est GFR ( Amer) 110.2 Est GFR (Non-Af Amer) 95.1 BUN/Creatinine Ratio 12.6 (10-20) Glucose 120 H (70-99) mg/dl Calcium 9.3 (8.5-10.1) mg/dl Total Bilirubin 0.5 (0.2-1) mg/dl AST 25 (15-37) U/L ALT 42 (12-78) U/L Alkaline Phosphatase 73 (45-117) U/L Troponin I < 0.015 (0-0.045) ng/ml Total Protein 7.8 (6.4-8.2) gm/dl Albumin 4.7 (3.4-5.0) gm/dl Globulin 3.1 (2.5-4.0) gm/dl Albumin/Globulin Ratio 1.5 (0.9-2) Lipase 3050 H (73-393) U/L Urine Color Urine Appearance (Clear) Urine pH (4.5-7.5) Ur Specific [place] (1.000-1.030) Urine Protein (Negative) Urine Glucose (UA) (Negative) Urine Ketones (Negative) Urine Blood (Negative) Urine Nitrite (Negative) Urine Bilirubin (Negative) Urine Urobilinogen (Negative) Ur Leukocyte Esterase (Negative) Urine WBC (Auto) (0-5) /hpf Urine RBC (Auto) (0-4) /hpf U Hyaline Cast (Auto) (0-5) /lpf U Epithel Cells (Auto) (0-5) /lpf Urine Bacteria (Auto) (Negative) Ethyl Alcohol mg/dL < 3.0 (0-3) mg/dl COVID-19 Eval Order SARS-CoV-2 (PCR) (Negative) Influenza Type A (PCR) (Neg) Influenza Type B (PCR) (Neg) RSV (RT-PCR) (Neg) Diagnostic Findings CXR: IMPRESSION: No acute cardiopulmonary findings.
[2020-06-07] MEDS: PROMETHAZINE HCL 12.5 MG in SODIUM CHLORIDE 0.9% 50 ML IV PRN (16:53)
--- NOTE | 2020-06-07 18:24 | Magnetic Resonance Report ---
MRCP CLINICAL HISTORY: Recurrent pancreatitis. COMPARISON STUDY: Abdominal CT dated 01/19/2018. MRCP dated 01/03/2018. TECHNIQUE: Abdominal MRCP is performed utilizing various T2-weighted sequences in the axial and coron al planes. IV contrast was not administered for this examination. 3-D reformats are created and asses sed. The examination is degraded by motion artifact. FINDINGS: The gallbladder is surgically absent. No intra or extrahepatic biliary ductal dilatation is identifie d. The common bile duct measures up to 5 mm in diameter. There are no intraluminal filling defects to suggest choledocholithiasis. The pancreatic duct is normal in caliber. A subcentimeter cyst is noted in the left lobe of liver. The unenhanced liver is otherwise normal as visualized. The unenhanced spleen, pancreas, and adrenal glands are grossly normal. The unenhanced ki dneys are normal in size and without hydronephrosis. A 5 cm cyst is noted in the right kidney. The ab dominal aorta is normal in caliber. A retroaortic left renal vein is incidentally noted. There is no bowel obstruction. No abdominal ascites is identified and there is no pleural effusion. IMPRESSION: Normal MRCP noting status post cholecystectomy. Dictated: 06/07/2020 6:10 PM Transcribed: 06/07/2020 6:21 PM Camila [id number] [email or web address] Electronically signed by: Trace Mukherjee M.D. 06/07/2020 6:23 PM
[2020-06-08] MEDS: LACTATED RINGER'S 1,000 ML IV SCH ×4 (04:18→19:46)
--- NOTE | 2020-06-08 05:58 | Electrocardiogram Report ---
Test Reason : Blood Pressure : / mmHG Vent. Rate : 061 BPM Atrial Rate : 061 BPM P-R Int : 140 ms QRS Dur : 098 ms QT Int : 426 ms P-R-T Axes : 053 007 014 degrees QTc Int : 428 ms Normal sinus rhythm with sinus arrhythmia Possible Left atrial enlargement Borderline ECG When compared with ECG of 03-JAN-2018 13:35, T wave amplitude has decreased in Anterior leads Confirmed by Miguel Ángel Duron ([id number]) on 06/08/2020 5:57:30 AM Referred By: REFERRED SELF Confirmed By:Miguel Ángel Duron
[2020-06-08] MEDS: PROMETHAZINE HCL 12.5 MG in SODIUM CHLORIDE 0.9% 50 ML IV PRN ×3 (06:07→19:46)
[2020-06-08] MEDS: HYDROmorphone INJ 0.5 MG/0.5 ML SYR IV PRN ×4 (06:07→22:44)
[2020-06-08 06:29] LABS: Hematocrit (blood only) 46.9 % (42-52); Hemoglobin 16.4 g/dL (14.0-18.0); Mean Corpuscular Volume 91.4 fL (80-100); Mean Platelet Volume 11.4 fL (7.4-10.4); Platelet Count 245 K/uL (130-400); RDW Coefficient of Variation 13.4 % (11.5-14.5); RDW Standard Deviation 44.8 fL (36.4-46.3); Red Blood Count 5.13 M/uL (4.7-6.1); White Blood Count 14.18 K/uL (4.8-10.8)
[2020-06-08 06:37] LABS: Estimated Average Glucose 111 mg/dl; Hemoglobin A1C 5.5 % (4.5-5.6)
[2020-06-08 06:50] LABS: Basophils # (auto) 0.06 K/uL (0-0.2); Basophils % (auto) 0.4 %; Eosinophils # (auto) 0.18 K/uL (0-0.5); Eosinophils % (auto) 1.3 %; Immature Granulocytes # (auto) 0.05 K/uL (0.00-0.02); Immature Granulocytes % (auto) 0.4 %; Lymphocytes # (auto) 5.64 K/uL (1.2-3.4); Lymphocytes % (auto) 39.8 %; Monocytes # (auto) 1.47 K/uL (0.11-0.59); Monocytes % (auto) 10.4 %; Neutrophils # (auto) 6.78 K/uL (1.4-6.5); Neutrophils % (auto) 47.7 %
[2020-06-08 07:06] LABS: Albumin Level 4.3 gm/dl (3.4-5.0); BUN Creatinine Ratio 10.5 (10-20); Calcium 9.2 mg/dl (8.5-10.1); Creatinine Clr Calc Pharmacy 125.5 ml/min; Est GFR (African American) 120.2; Est GFR (Non-African American) 103.7; Potassium 3.7 mmol/L (3.5-5.1)
[2020-06-08 07:14] LABS: Albumin Globulin Ratio 1.3 (0.9-2); Bilirubin,Total 1.1 mg/dl (0.2-1); Globulin 3.2 gm/dl (2.5-4.0); Total Protein 7.5 gm/dl (6.4-8.2)
[2020-06-08] MEDS: SERTRALINE HCL 50 MG TABLET PO SCH (08:35)
--- NOTE | 2020-06-08 11:15 | Gastroenterology Progress Note ---
Date of Service June 08, 2020 Assessment & Plan (1) Recurrent acute pancreatitis: This is a 44 y/o male with history of recurrent idiopathic pancreatitis, s/p CCY, now admitted for recurrent epigastric pain and elevated lipase c/w acute pancreatitis. Overnight lipase has normalized and pt has clinically improved, feeling significantly better after hydration with IVF and IV analgesia. Abd minimally tender. MRCP did not reveal any abnormalities including CBD stone or dilation. Etiology of his recurrent pancreatitis remains unclear however contributing factor may be medications including SSRI. - Pt is going to have his diet advanced to clears this AM; can advance as tolerated - Agree with supportive care with IVF as per primary team - Analgesia as per primary service - Antiemetics as per primary service - Would discontinue Zoloft and this was discussed with pt; he will discuss this with his prescribing provider - Will arrange follow-up EUS as an outpt in approx 6-8 weeks Thank you for allowing us to participate in the care of this patient. Please call with any acute changes, questions or concerns. Please see addendum below with additional recommendation from my supervising physician. Admission and Anticipated Discharge Date Admission Date: June 07, 2020 Supervising Physician Co-Signing Physician Notes I saw and evaluated the patient with Ms. Carlos. He notes feeling much improved this afternoon without abdominal pain, nausea or emesis. The cause of his recurrent pancreatitis does remain elusive, however, I do wonder about Zoloft as it was started a few months ago. - Clear liquid diet today, then advance as tolerated on 06/09/20 - Agree with supportive care with IVF as per primary team - Analgesia as per primary service - Antiemetics as per primary service - Consider discontinuation Zoloft and this was discussed with pt; he will discuss this with his prescribing provider - Will arrange follow-up EUS as an outpt in approx 6-8 week - Please call with any questions or concerns, GI to sign off. Subjective Patient seen and examined, chart reviewed. Feeling significantly improved this AM; having minimal pain, no nausea at present. He is still getting IV analgesia every few hours. He is starting to feel hungry; is going to try clear liquids this AM. MRCP yesterday normal with no biliary dilation, filling defects to suggest biliary stone. Lipase trended to WNL; WBC trending down; LFTs are WNL, triglycerides 178. No fever, CP, SOB, jaundice. Review of Systems Review of Systems: All systems reviewed & are unremarkable except as noted in HPI & below Physical Exam Constitutional: WD/WN, vitals as above Eyes: + anicteric sclerae Respiratory: normal respiratory effort Cardiovascular: Rate/Rhythm: regular rate and regular rhythm Heart Sounds: + murmur Gastrointestinal (Abdomen): Inspection/Auscultation: normal bowel sounds; abdomen not distended Percussion/Palpation: abdomen soft minimal epigastric tenderness Skin: no rashes, warm and dry Psychiatric: A+Ox3, euthymic affect Results & Data ([facility]) Vital Signs (Past 12 Hours) Vital Signs Temp Pulse Resp BP Pulse Ox 06/08/20 08:01 36.5 C 61 18 153/97 H 95 Laboratory Results 06/08/20 06/08/20 06/08/20 Range/Units 05:55 05:55 05:55 WBC 14.18 H (4.8-10.8) K/uL RBC 5.13 (4.7-6.1) M/uL Hgb 16.4 (14.0-18.0) g/dL Hct 46.9 (42-52) % MCV 91.4 (80-100) fL MCH 32.0 (25-34) pg MCHC 35.0 (32-36) g/dL RDW Std Deviation 44.8 (36.4-46.3) fL RDW Coeff of Che 13.4 (11.5-14.5) % Plt Count 245 (130-400) K/uL MPV 11.4 H (7.4-10.4) fL Immature Gran % (Auto) 0.4 % Neut % (Auto) 47.7 % Lymph % (Auto) 39.8 % [place] % (Auto) 10.4 % Eos % (Auto) 1.3 % Baso % (Auto) 0.4 % Neut # (Auto) 6.78 H (1.4-6.5) K/uL Lymph # (Auto) 5.64 H (1.2-3.4) K/uL [place] # (Auto) 1.47 H (0.11-0.59) K/uL Eos # (Auto) 0.18 (0-0.5) K/uL Baso # (Auto) 0.06 (0-0.2) K/uL Immature Gran # (Auto) 0.05 H (0.00-0.02) K/uL Sodium 140 (136-145) mmol/L Potassium 3.7 D (3.5-5.1) mmol/L Chloride 107 (98-107) mmol/L Carbon Dioxide 27 (21-32) mmol/L Anion Gap 6.0 (3-11) BUN 9 (7-18) mg/dl Creatinine 0.88 (0.6-1.4) mg/dl Est Cr Clr Drug Dosing 125.5 ml/min Est GFR ( Amer) 120.2 Est GFR (Non-Af Amer) 103.7 BUN/Creatinine Ratio 10.5 (10-20) Glucose 91 (70-99) mg/dl Estimat Average Glucose 111 mg/dl Hemoglobin A1c 5.5 (4.5-5.6) % Calcium 9.2 (8.5-10.1) mg/dl Magnesium 2.0 (1.8-2.4) mg/dl Total Bilirubin 1.1 H D (0.2-1) mg/dl AST 23 (15-37) U/L ALT 42 (12-78) U/L Alkaline Phosphatase 70 (45-117) U/L Total Protein 7.5 (6.4-8.2) gm/dl Albumin 4.3 (3.4-5.0) gm/dl Globulin 3.2 (2.5-4.0) gm/dl Albumin/Globulin Ratio 1.3 (0.9-2) Triglycerides 178 H (0-150) mg/dl Cholesterol 223 H (0-200) mg/dl LDL Cholesterol, Calc 121 mg/dl VLDL Cholesterol, Calc 36 mg/dl HDL Cholesterol 66 mg/dl Cholesterol/HDL Ratio 3 Lipase 277 (73-393) U/L Urine Color Urine Appearance (Clear) Urine pH (4.5-7.5) Ur Specific [place] (1.000-1.030) Urine Protein (Negative) Urine Glucose (UA) (Negative) Urine Ketones (Negative) Urine Blood (Negative) Urine Nitrite (Negative) Urine Bilirubin (Negative) Urine Urobilinogen (Negative) Ur Leukocyte Esterase (Negative) Urine WBC (Auto) (0-5) /hpf Urine RBC (Auto) (0-4) /hpf U Hyaline Cast (Auto) (0-5) /lpf U Epithel Cells (Auto) (0-5) /lpf Urine Bacteria (Auto) (Negative) COVID-19 Eval Order SARS-CoV-2 (PCR) (Negative) Influenza Type A (PCR) (Neg) Influenza Type B (PCR) (Neg) RSV (RT-PCR) (Neg) 06/07/20 06/07/20 06/07/20 Range/Units 12:22 12:18 12:18 WBC (4.8-10.8) K/uL RBC (4.7-6.1) M/uL Hgb (14.0-18.0) g/dL Hct (42-52) % MCV (80-100) fL MCH (25-34) pg MCHC (32-36) g/dL RDW Std Deviation (36.4-46.3) fL RDW Coeff of Che (11.5-14.5) % Plt Count (130-400) K/uL MPV (7.4-10.4) fL Immature Gran % (Auto) % Neut % (Auto) % Lymph % (Auto) % [place] % (Auto) % Eos % (Auto) % Baso % (Auto) % Neut # (Auto) (1.4-6.5) K/uL Lymph # (Auto) (1.2-3.4) K/uL [place] # (Auto) (0.11-0.59) K/uL Eos # (Auto) (0-0.5) K/uL Baso # (Auto) (0-0.2) K/uL Immature Gran # (Auto) (0.00-0.02) K/uL Sodium (136-145) mmol/L Potassium (3.5-5.1) mmol/L Chloride (98-107) mmol/L Carbon Dioxide (21-32) mmol/L Anion Gap (3-11) BUN (7-18) mg/dl Creatinine (0.6-1.4) mg/dl Est Cr Clr Drug Dosing ml/min Est GFR ( Amer) Est GFR (Non-Af Amer) BUN/Creatinine Ratio (10-20) Glucose (70-99) mg/dl Estimat Average Glucose mg/dl Hemoglobin A1c (4.5-5.6) % Calcium (8.5-10.1) mg/dl Magnesium (1.8-2.4) mg/dl Total Bilirubin (0.2-1) mg/dl AST (15-37) U/L ALT (12-78) U/L Alkaline Phosphatase (45-117) U/L Total Protein (6.4-8.2) gm/dl Albumin (3.4-5.0) gm/dl Globulin (2.5-4.0) gm/dl Albumin/Globulin Ratio (0.9-2) Triglycerides (0-150) mg/dl Cholesterol (0-200) mg/dl LDL Cholesterol, Calc mg/dl VLDL Cholesterol, Calc mg/dl HDL Cholesterol mg/dl Cholesterol/HDL Ratio Lipase (73-393) U/L Urine Color Yellow Urine Appearance Cloudy A (Clear) Urine pH 7.5 (4.5-7.5) Ur Specific [place] 1.015 (1.000-1.030) Urine Protein Negative (Negative) Urine Glucose (UA) Negative (Negative) Urine Ketones Negative (Negative) Urine Blood Negative (Negative) Urine Nitrite Negative (Negative) Urine Bilirubin Negative (Negative) Urine Urobilinogen Negative (Negative) Ur Leukocyte Esterase Negative (Negative) Urine WBC (Auto) 0 (0-5) /hpf Urine RBC (Auto) 0-4 (0-4) /hpf U Hyaline Cast (Auto) 0 (0-5) /lpf U Epithel Cells (Auto) 0-5 (0-5) /lpf Urine Bacteria (Auto) Negative (Negative) COVID-[address] CovFluRsv at [facility] SARS-CoV-2 (PCR) NEGATIVE (Negative) Influenza Type A (PCR) Negative (Neg) Influenza Type B (PCR) Negative (Neg) RSV (RT-PCR) Negative (Neg) Diagnostic Findings MRCP: TECHNIQUE: Abdominal MRCP is performed utilizing various T2-weighted sequences in the axial and coronal planes. IV contrast was not administered for this examination. 3-D reformats are created and assessed. The examination is degraded by motion artifact. FINDINGS: The gallbladder is surgically absent. No intra or extrahepatic biliary ductal dilatation is identified. The common bile duct measures up to 5 mm in diameter. There are no intraluminal filling defects to suggest choledocholithiasis. The pancreatic duct is normal in caliber. A subcentimeter cyst is noted in the left lobe of liver. The unenhanced liver is otherwise normal as visualized. The unenhanced spleen, pancreas, and adrenal glands are grossly normal. The unenhanced kidneys are normal in size and without hydronephrosis. A 5 cm cyst is noted in the right kidney. The abdominal aorta is normal in caliber. A retroaortic left renal vein is incidentally noted. There is no bowel obstruction. No abdominal ascites is identified and there is no pleural effusion. IMPRESSION: Normal MRCP noting status post cholecystectomy.
[2020-06-08] MEDS: oxyCODONE HCL IR 5 MG TAB (IMMEDIATE RELEASE) PO PRN ×2 (13:16→18:40)
--- NOTE | 2020-06-08 15:42 | Hospitalist Progress Note ---
Date of Service June 08, 2020 Assessment & Plan (1) Recurrent acute pancreatitis: This is a 44-year-old male who has significant past medical history of recurrent idiopathic pancreatitis with history of cholecystectomy, RLS on medical marijuana, mild SUDHA noncompliant with CPAP, HTN off oral antihypertensives, depression who presents ED secondary to abdominal pain x1 day. Patient signs and symptoms consistent with acute recurrent pancreatitis. Unknown etiology. Had formal w/u in past. History of recurrent pancreatitis in past which seem to be improved with cholecystectomy. Denies ETOH or significant NSAID use Continue maintenance IV fluids. Will start patient on clear liquid diet. Appreciate gastroenterology input. MRCP has been negative. LR @ 200 cc/hr IV antiemetics IV pain meds Triglyceride level of 178. Hypokalemia -resolved Leukocytosis likely reactive in setting of acute pancreatitis no s/sx of infection, sirs criteria not met (documented RR > 24 x 2; however per my eval RR 20) RLS prn requip medical marijuana at home SUDHA noncompliant with cpap Depression Zoloft discontinued as per GI. Dvt ppx: scd/teds for now, monitor daily need for chemical prophylaxis Dispo: med/surg, likely d/c to home in 1-2 days if symptoms improve and tolerating diet PCP: Clarissa FULL CODE Admission and Anticipated Discharge Date Admission Date: June 07, 2020 Subjective Patient reports he is feeling much better today. No further episodes of nausea or vomiting. Epigastric discomfort is improved. Denies any chest pain. Denies any diarrhea or dysuria. Rest of the review of systems negative. Review of Systems Review of Systems: All systems reviewed & are unremarkable except as noted in HPI & below Physical Exam Physical Exam: General: A&Ox3 HENT: NCAT, MMM, EOMI Eyes: PERRLA Neck: Supple, normal range of motion CVS: normal rate and rhythm Resp: b/l good breath Abdomen: Soft, epigastric tenderness is appreciated Extremities: No c/c/e Neuro: face symmetric, strength grossly equal, no focal deficit Skin: warm and dry, no rashes/lesions/errythema MSK: normal ROM, no joint swelling/erythema Results & Data Results & Data ([facility]) Vital Signs (Past 12 Hours) Vital Signs Temp Pulse Resp BP Pulse Ox 06/08/20 08:01 36.5 C 61 18 153/97 H 95
[2020-06-08] MEDS ORDERED: lisinopril 2.5 MG TAB PO SCH (23:45)
[2020-06-09] MEDS ORDERED: amLODIPine BESYLATE 5 MG TAB PO ONE ×2 (00:29→16:45)
[2020-06-09] MEDS: LACTATED RINGER'S 1,000 ML IV SCH ×3 (00:49→10:52)
[2020-06-09] MEDS: oxyCODONE HCL IR 5 MG TAB (IMMEDIATE RELEASE) PO PRN ×2 (00:49→09:43)
[2020-06-09] MEDS: ONDANSETRON INJ 2 MG/ML 2 ML VIAL IV PRN ×4 (01:11→19:05)
--- NOTE | 2020-06-09 02:32 | Communication Note ---
Date of Service: June 08, 2020 Made aware by RN of uncontrolled blood pressure. SBP 140-200s range since admission this a.m. Currently 170s as per RN. Currently without abdominal pain after Dilaudid administration as per RN. AP Hypertensive urgency History hypertension currently not on medications. Initiate amlodipine. Will relay to AM provider.
[2020-06-09] MEDS: HYDROmorphone INJ 0.5 MG/0.5 ML SYR IV PRN ×3 (05:48→20:59)
[2020-06-09] MEDS: PROMETHAZINE HCL 12.5 MG in SODIUM CHLORIDE 0.9% 50 ML IV PRN ×2 (08:00→23:51)
[2020-06-09] MEDS: SERTRALINE HCL 50 MG TABLET PO SCH (08:03)
[2020-06-09] MEDS ORDERED: amLODIPine BESYLATE 5 MG TAB PO SCH ×3 (09:00→21:00)
[2020-06-09] MEDS: LOSARTAN POTASSIUM 25 MG TAB PO SCH (09:40)
[2020-06-09] MEDS ORDERED: oxyCODONE HCL IR 5 MG TAB (IMMEDIATE RELEASE) PO ONE (11:26)
[2020-06-09] MEDS ORDERED: oxyCODONE HCL IR 5 MG TAB (IMMEDIATE RELEASE) PO PRN (11:29)
--- NOTE | 2020-06-09 11:34 | Hospitalist Progress Note ---
Date of Service June 09, 2020 Assessment & Plan (1) Recurrent acute pancreatitis: 44-year-old male who has significant past medical history of recurrent idiopathic pancreatitis with history of cholecystectomy, RLS on medical marijuana, mild SUDHA noncompliant with CPAP, HTN off oral antihypertensives, depression who presents ED secondary to abdominal pain x1 day. Patient signs and symptoms consistent with acute recurrent pancreatitis. Unknown etiology. Had formal w/u in past. History of recurrent pancreatitis in past which seem to be improved with cholecystectomy. Denies ETOH or significant NSAID use Triglyceride level of 178. Pain appear well controlled Tolerating clears well. Advance diet as tolerated Discontinue IV fluids since patient has good oral intake Hypertensive urgency Reports history of hypertension. Stated he was initially on lisinopril and hydrochlorothiazide but were discontinued as they precipitated pancreatitis episode. Blood pressure this morning >200s over 100 Increase amlodipine to 5 mg daily. Added losartan 25mg. Will monitor blood pressure today and adjust meds as needed. Patient was asking about being discharged today. Counseled patient about need to stay to get BP better controlled Hypokalemia -resolved Leukocytosis - resolved Likely reactive in setting of acute pancreatitis RLS Prn requip Medical marijuana at home SUDHA Noncompliant with cpap Depression Zoloft discontinued as per GI. Dvt ppx: scd/teds for now, monitor daily need for chemical prophylaxis Dispo: med/surg.Possible dc tomorrow PCP: Clarissa FULL CODE Admission and Anticipated Discharge Date Admission Date: June 07, 2020 Subjective Patient seen and examined. Reports nausea is completely resolved Reports abdominal pain is significantly improved. Review of Systems Constitutional: no fever, no chills and no body aches Eyes: no problem reported Ear, Nose, Mouth, Throat: no problem reported Respiratory: no cough, no dyspnea and no dyspnea on exertion Cardiovascular: no chest pain, no dyspnea, no orthopnea, no palpitations and no lightheadedness Gastrointestinal: + abdominal pain; no nausea and no vomiting Genitourinary: no dysuria, no urinary frequency and no urinary hesitancy Musculoskeletal: no back pain and no problem reported Integumentary: no problem reported Neurologic: no dizziness, no headache(s) and no confusion Psychiatric: no depression, no irritability, no anxiety and no confusion Endocrine: no polydipsia, no polyphagia and no polyuria Physical Exam Constitutional: + well hydrated; no acute distress Eyes: PERRL, conjunctivae normal, anicteric sclerae ENMT: external ear and nose normal, oropharynx normal Respiratory: normal respiratory effort, lungs clear to auscultation Cardiovascular: RRR, no murmur, no edema Gastrointestinal (Abdomen): Inspection/Auscultation: abdomen normal to inspection and normal bowel sounds; abdomen not distended Percussion/Palpation: + abdomen tender (Mild epigastric tenderness) and abdomen soft; no guarding and abdomen not rigid Musculoskeletal: no cyanosis or clubbing, extremities motor strength 5/5 Neurologic: PERRL, EOMI, accommodation nl, no face palsy, no dysarthria Psychiatric: A+Ox3, euthymic affect Genitourinary: no CVA tenderness Results & Data Results & Data ([facility]) Vital Signs (Past 12 Hours) Vital Signs Temp Pulse Pulse Resp BP BP Pulse Ox 06/09/20 11:20 75 198/137 H 185/122 H 06/09/20 10:39 72 184/103 H 177/108 H 06/09/20 07:34 36.8 C 67 16 195/114 H 205/105 H 97 Laboratory Results Laboratory Results - last 24 hr 06/09/20 06/09/20 11:42 11:42 WBC 10.08 RBC 5.00 Hgb 15.8 Hct 44.6 MCV 89.2 MCH 31.6 MCHC 35.4 RDW Std Deviation 42.4 RDW Coeff of Che 13.0 Plt Count 228 MPV 11.0 H Sodium 143 Potassium 3.6 Chloride 105 Carbon Dioxide 33 H Anion Gap 5.0 BUN 6 L Creatinine 0.94 Est Cr Clr Drug Dosing 117.5 Est GFR ( Amer) 113.0 Est GFR (Non-Af Amer) 97.5 BUN/Creatinine Ratio 6.8 L Glucose 91 Calcium 8.9
[2020-06-09 11:56] LABS: Hematocrit (blood only) 44.6 % (42-52); Hemoglobin 15.8 g/dL (14.0-18.0); Mean Corpuscular Hemoglobin 31.6 pg (25-34); Mean Corpuscular Hgb Conc 35.4 g/dL (32-36); Mean Corpuscular Volume 89.2 fL (80-100); Platelet Count 228 K/uL (130-400); RDW Standard Deviation 42.4 fL (36.4-46.3); White Blood Count 10.08 K/uL (4.8-10.8)
[2020-06-09 12:19] LABS: BUN Creatinine Ratio 6.8 (10-20); Calcium 8.9 mg/dl (8.5-10.1); Creatinine Clr Calc Pharmacy 117.5 ml/min; Est GFR (Non-African American) 97.5; Potassium 3.6 mmol/L (3.5-5.1)
[2020-06-09] MEDS: ACETAMINOPHEN 325 MG TAB PO PRN (19:04)
[2020-06-10] MEDS: HYDROmorphone INJ 0.5 MG/0.5 ML SYR IV PRN (02:43)
[2020-06-10] MEDS: ONDANSETRON INJ 2 MG/ML 2 ML VIAL IV PRN ×2 (03:43→07:23)
[2020-06-10] MEDS: ACETAMINOPHEN 325 MG TAB PO PRN (05:23)
[2020-06-10 06:02] LABS: BUN Creatinine Ratio 10.3 (10-20); Creatinine Clr Calc Pharmacy 117.5 ml/min; Est GFR (Non-African American) 97.5; Magnesium 2.1 mg/dl (1.8-2.4); Phosphorus 4.4 mg/dl (2.5-4.9); Potassium 3.7 mmol/L (3.5-5.1)
[2020-06-10] MEDS: SERTRALINE HCL 50 MG TABLET PO SCH (09:00)
[2020-06-10] MEDS: LOSARTAN POTASSIUM 25 MG TAB PO SCH (09:00)
[2020-06-10] MEDS ORDERED: amLODIPine BESYLATE 5 MG TAB PO SCH (09:00)
--- NOTE | 2020-06-10 10:36 | Discharge Summary ---
Date of Service June 10, 2020 Admission HPI Per Admitting Provider This is a 44-year-old male who has significant past medical history of recurrent idiopathic pancreatitis with history of cholecystectomy, RLS on medical marijuana, mild SUDHA noncompliant with CPAP, HTN off oral antihype rtensives, depression who presents ED secondary to abdominal pain x1 day. Of significance he states approximately 30 to 40 days ago he was seen in ER secondary to early onset acute pancreatitis and attributed this to dehydration and 1 glass of champagne celebrating his anniversary. He was hydrated and symptoms resolved. Today he is unsure what sparked event. He denies any recent alcohol use, but he is on medical marijuana. Patient elicits he woke up first thing this morning and felt okay when he developed severe nausea and epigastric, nonradiating abdominal pain. Pain was described as a stab, nonradiating, 10/10 at its worst, nothing made better or worse. He lists the nausea was worse than the pain. He denies any vomiting. He did have a bowel movement this morning and while in ED. He feels slightly constipated, but bowels are not hard. He denies melena or hematochezia. He felt chilled and sweaty today but denies any documented fever. He denies any lightheadedness, dizziness, syncope, chest pain, shortness of breath, cough, URI symptoms, emesis, hematemesis, dysuria, increased urinary frequency with urination. His last meal was dinner last evening which was fish sticks. He admits ever since having a cholecystectomy he had been doing very well in regards to his pancreatitis until these most recent flares. He was recently on Trintellix for depression but had significant nausea. Once this was discontinued his nausea subsided. He does take NSAIDs occasionally ibuprofen. He does have chronic abdominal pain for which she takes oxycodone for. In ED patient remained hemodynamically stable although significantly hypertensive in response to pain. He had leukocytosis 18.62k, K3.0, lipase 3050. His urinalysis and chest x-ray was negative. Ethyl alcohol was negative. Chest x-ray was negative for acute abnormality. Given patient's history and clinically symptoms appear consistent with acute pancreatitis. In ED he received IV antiemetics as well as pain medication he is feeling much improved since arrival. Admission Exam Per Admitting Provider Constitutional: WD/WN, vitals as above, NAD, sitting up in bed, pleasant, conversing easily Head: Normocephalic, Atraumatic Eyes: PERRL, conjunctivae normal, anicteric sclerae ENMT: external ear and nose normal, oropharynx normal Neck: trachea midline, no thyromegaly normal visual inspection Respiratory: normal respiratory effort, lungs clear to auscultation, no wheeze, rales, rhonchi. Normal insp/exp effort, no accessory muscle use Cardiovascular: RRR, no murmur, no edema Vessels: no JVD or carotid bruit Chest: normal inspection of chest Abdomen: normal bowel sounds, soft, nontender, no hepatosplenomegaly Musculoskeletal: no cyanosis or clubbing, extremities motor strength 5/5 Skin: no rashes, warm and dry normal turgor Neurologic: PERRL, EOMI, accommodation nl, no face palsy, no dysarthria CN's II-XI intact bilaterally and moves all extremities Psychiatric: A+Ox3, euthymic affect Lymphatic: no cervical or axillary lymphadenopathy : deferred Principal Diagnosis Acute Recurrent Pancreatitis Hypertensive urgency Discharge Exam Constitutional + well hydrated; no acute distress Eyes PERRL, conjunctivae normal, anicteric sclerae ENMT external ear and nose normal, oropharynx normal Respiratory normal respiratory effort, lungs clear to auscultation Cardiovascular RRR, no murmur, no edema Gastrointestinal (Abdomen) normal bowel sounds, soft, nontender, no hepatosplenomegaly Musculoskeletal no cyanosis or clubbing, extremities motor strength 5/5 Neurologic PERRL, EOMI, accommodation nl, no face palsy, no dysarthria Psychiatric A+Ox3, euthymic affect Genitourinary no CVA tenderness Discharge Data Allergies Allergy/AdvReac Type Severity Reaction Status Date / Time hydrochlorothiazide AdvReac Severe PANCREATITI Verified 06/07/20 12:47 S Iodinated Contrast Media AdvReac Severe SNEEZE (CT Verified 06/07/20 12:47 dye) lisinopril AdvReac Severe pancreatitis Verified 06/09/20 00:31 as per px ketorolac AdvReac Unknown GI SYMPTOMS Verified 06/07/20 12:47 tramadol AdvReac Unknown "ears Verified 06/07/20 12:47 sensitive" morphine AdvReac Nausea Verified 06/07/20 12:47 Consultations 06/07/20 12:18 ED Decision to Admit Stat 06/07/20 12:24 Consult Gastroenterology Routine Ordered Studies 06/07/20 16:43 MR MRCP Urgent The gallbladder is surgically absent. No intra or extrahepatic biliary ductal dilatation is identified. The common bile duct measures up to 5 mm in diameter. There are no intraluminal filling defects to suggest choledocholithiasis. The pancreatic duct is normal in caliber. A subcentimeter cyst is noted in the left lobe of liver. The unenhanced liver is otherwise normal as visualized. The unenhanced spleen, pancreas, and adrenal glands are grossly normal. The unenhanced kidneys are normal in size and without hydronephrosis. A 5 cm cyst is noted in the right kidney. The abdominal aorta is normal in caliber. A retroaortic left renal vein is incidentally noted. There is no bowel obstruction. No abdominal ascites is identified and there is no pleural effusion. IMPRESSION: Normal MRCP noting status post cholecystectomy. Hospital Course (1) Recurrent acute pancreatitis: 44-year-old male who has significant past medical history of recurrent idiopathic pancreatitis with history of cholecystectomy, RLS on medical marijuana, mild SUDHA noncompliant with CPAP, HTN off oral antihypertensives, depression who presents ED secondary to abdominal pain x1 day. Patient signs and symptoms consistent with acute recurrent pancreatitis. Unknown etiology. Had formal work up in past. History of recurrent pancreatitis in past which seem to be improved with cholecystectomy. Denies ETOH or significant NSAID use Triglyceride level of 178. Abdominal pain resolved Tolerating diet well Licensing Services Clerk evaluated and recommended discontinuing zoloft I discussed this with patient. To avoid withdrawal, patient advised to reduce to half home dose to 25mg daily for next 2 weeks and stop Patient also reports he already has plans to follow up with psychiatrist Patient needs to follow up with Licensing Services Clerk in 6-8 weeks for EUS Hypertensive urgency Reported history of hypertension. Stated he was initially on lisinopril and hydrochlorothiazide but were discontinued as they precipitated pancreatitis episode. Blood pressure while inpatient was persistently >180/100 Patient was started on amlodipine 10mg and losartan 25mg daily BP this morning before getting AM meds was 166/100 Patient reports he has BP machine at home. Advised to keep BP log till follow up with PCP on 06/14/20 to aid PCP continue to manage hypertension Hypokalemia -resolved Leukocytosis - resolved Likely reactive in setting of acute pancreatitis RLS Medical marijuana at home SUDHA Noncompliant with Cpap Depression Zoloft reduced to 25mg for 2 weeks and then stop Patient reports he is to follow up with Psychiatrist for continued management Total Time Total Time Spent Total Time Spent (In Minutes): 45 Total Time Includes: Examination of the Patient, Discharge Planning and Medication Reconciliation Discharge Plan Discharge Items Patient Disposition: Home - Self-Care Reason For Visit: ACUTE PANCREATITIS Discharge Diagnosis: Recurrent pancreatitis Hypertensive urgency Activity: Resume your previous activity Non-emergency contact: Primary Care Provider and Licensing Services Clerk Call non-emergency contact if: you have any medication questions and your symptoms worsen Follow-up/Referrals: Hudson Romo MD [Primary Care Provider] - (Date & Time 06/14/2020 11:00 AM Provider Hudson Romo MD Department [facility] ) Diet: Heart Healthy Addtl Attending Provider Instructions: Mr Henning. You came to the hospital complaining of abdominal pain. You were evaluated and found to have pancreatitis. This was managed. You also had persistent significantly elevated blood pressures and had to be started on blood pressure medications. Please take this as prescribed and keep a blood pressure log as we discussed for your Primary Doctor for continued management of your hypertension. Due to risk of pancreatitis, Licensing Services Clerk recommend stopping zoloft. Please reduce your home zoloft (sertraline) to 25mg daily and stop after 2 weeks from now. Please ensure follow up with Psychiatrist as you planned. You will need to follow up with Licensing Services Clerk in 6-8 weeks for continued evaluation and management. It was a pleasure taking care of you Pending Studies at Discharge: No Stand-Alone Forms: My [facility], Opioid Pain Management, Smoking Cessation Medications and DC Order Prescriptions: New losartan 25 mg Tablet 25 mg PO QAM Qty: 30 RF: 0 amlodipine 5 mg tablet 10 mg PO DAILY Qty: 60 RF: 0 Continued ondansetron 8 mg tablet,disintegrating 8 mg Translingual Q6 PRN (Reason: Nausea) RF: 0 promethazine 25 mg tablet 25 mg PO Q6 PRN (Reason: Nausea) RF: 0 ibuprofen 800 mg tablet 800 mg PO TIDM RF: 0 dextroamphetamine-amphetamine 5 mg tablet 5 mg PO DAILY RF: 0 ropinirole 0.25 mg tablet 0.25 mg PO BID PRN (Reason: Restless Leg(S)) RF: 0 oxycodone 5 mg tablet 5 mg PO Q4H PRN (Reason: Pain) RF: 0 Changed sertraline 50 mg tablet 25 mg PO QAM 14 Days Qty: 0 RF: 0 Discharge Orders: Discharge Order (Routine); Ordered 06/10/20 Ordered By: Ashley Redmond/Other Patient Handouts: Discharge Instructions for Acute ... Admission Data Admit Date/Time: 06/07/20 12:24 Attending Provider: Ashley Cramer I. Admit Provider: Marshall Castellanos Primary Care Provider: Hudson Romo Other Providers: Rafiq Deal ; Marshall Castellanos ; Milo Zuniga Other Interventions: Discharge Summary Assessment (RN) Last Done: 06/10/20 10:24
== END 2020-06-10 11:25 | disposition home or self-care (01) | DRG 440 ==
LOC: ED 10:10 → SUATTDRO 12:24 → 3W 12:24

== ENCOUNTER 2021-05-16 07:22 | Inpatient (IN) ==
[2021-05-16 07:49] LABS: Appearance Urine Clear (Clear); Bilirubin Urine Negative (Negative); Blood Urine Negative (Negative); Color Urine Orange; Glucose Urine UA Negative (Negative); Ketones Urine Negative (Negative); Leukocyte Esterase Urine Negative (Negative); Nitrite Urine Negative (Negative); Protein Urine Negative (Negative); Specific Gravity Urine 1.009 (1.000-1.030); Urobilinogen Urine Negative (Negative); pH Urine 7.5 (4.5-7.5)
[2021-05-16 07:50] LABS: Hematocrit (blood only) 46.6 % (42-52); Hemoglobin 16.2 g/dL (14.0-18.0); Mean Corpuscular Hemoglobin 31.8 pg (25-34); Mean Corpuscular Hgb Conc 34.8 g/dL (32-36); Mean Corpuscular Volume 91.6 fL (80-100); Mean Platelet Volume 10.5 fL (7.4-10.4); Platelet Count 276 K/uL (130-400); RDW Coefficient of Variation 13.1 % (11.5-14.5); RDW Standard Deviation 43.5 fL (36.4-46.3); Red Blood Count 5.09 M/uL (4.7-6.1); White Blood Count 11.03 K/uL (4.8-10.8)
[2021-05-16] MEDS ORDERED: ONDANSETRON INJ 2 MG/ML 2 ML VIAL IV STA (07:50)
[2021-05-16] MEDS ORDERED: PROMETHAZINE 25 MG/51 ML BAG IV STA (07:50)
--- NOTE | 2021-05-16 07:50 | Emergency Department Note ---
Impression & Plan Recurrent acute pancreatitis, Abdominal pain, Nausea ED Provider Note NAME: MARS ORTEGA AGE: 45 SEX: M : 1975 ARRIVES VIA: Walk-In INFORMANT: Patient ED PROVIDER(S): Jam Main DO HPI: Patient is a 63-year-old male who presents to the ER for abdominal pain. This started about an hour ago and is located in left mid abdomen. Patient describes it as a 4 out of 10 sharp and stabbing. He admits to severe nausea which was bothering him the most. Denies any headache or change in vision. No chest pain or shortness of breath. No vomiting yet. No dysuria, urgency, or f requency. This feels like his previous bouts of pancreatitis. It was diagnosed as idiopathic but he did have a cholecystectomy following which his symptoms improved. He also notes that he had a half of the drink this weekend for the first time in a long time. ROS: See above HPI for pertinent positives & negatives. A total of 10 systems reviewed and were otherwise negative. PAST MEDICAL HISTORY:See Below PAST SURGICAL HISTORY:See Below FAMILY HISTORY:See Below SOCIAL HISTORY:See Below HOME MEDICATIONS:See Below ALLERGIES:See Below VITALS:See Below PHYSICAL EXAMINATION: GENERAL: Sitting up in bed, alert, well appearing, well nourished, no distress, non-toxic EYE EXAM: normal conjunctiva. PERRL and EOM's grossly intact. OROPHARYNX: no exudate, no erythema, lips, buccal mucosa, and tongue normal and mucous membranes are moist NECK: supple, no nuchal rigidity, no adenopathy, non-tender LUNGS: Clear to auscultation. Normal chest wall mechanics HEART: no murmurs, S1 normal and S2 normal ABDOMEN: abdomen soft, left mid abdominal pain, normo-active bowel sounds, no masses, no rebound or guarding. UPPER EXTREMITIES: upper extremities are grossly normal. LOWER EXTREMITIES: No pitting edema. NEURO EXAM: Normal sensorium, cranial nerves II-XII grossly intact, normal speech, no gross weakness of arms, no gross weakness of legs. MEDICAL DECISION MAKING: Patient is a 45-year-old male who presents ER for periumbilical to left mid abdominal pain. IV was established blood was obtained. Labs show mild leukocytosis of 11,000. No significant anemia. BMP along with LFTs bilirubin was unremarkable. Lipase was significantly elevated at 1200. UA Was clean. Covid was negative. CT abdomen pelvis showed no acute pathology. Patient was given IV fluids Zofran Phenergan and 2 dose of IV Dilaudid. He was updated bedside and discussed with the hospitalist for further observation secondary to acute pancreatitis. Triage Nursing notes reviewed. Limited review of prior medical records performed Vital Signs: reviewed and remarkable for no significant abnormalities Differential diagnosis: Differential diagnoses includes but is not limited to gastritis, peptic ulcer disease, GERD, gallbladder disease, pancreatitis, small bowel obstruction, acute coronary syndrome, pericarditis, ischemic bowel, irritable bowel disease, irritable bowel syndrome, appendicitis, diverticulitis, malignancy, hernia, urin valerie tract infection, torsion, perforation, trauma, infectious. ER treatment provided: See below Diagnostics interpreted by me: ECG: none Cardiac Monitoring: An order was placed for continuous cardiac monitoring. The monitor shows a rate of 75 with sinus rhythm. Laboratory studies: As stated above and show below. Imaging studies: Abdomen pelvis as described above Consultation(s): Discussed the hospitalist Procedures: none Critical Care: None Past Med/Surg History Medical History Depression Depression HTN (hypertension) Hypertension Mild obstructive sleep apnea SUDHA (obstructive sleep apnea) Recurrent pancreatitis Renal cyst Restless leg syndrome Surgical History H/O hemorrhoidectomy H/O wisdom tooth extraction History of cholecystectomy History of tonsillectomy Family History Mother Asthma Father Hypertension Prostate cancer Social History Smoking Status: Former smoker Number of Years Since Quit: 20; Second Hand Exposure: No; Hx Alcohol Use: Yes Alcohol type: beer and wine Alcohol Intake Frequency: Never Hx Substance Use: No Preferred Language: Yi Communication Ability: Effective Lav Crewman Required: No Beliefs That Will Affect Care: None marital status: Current Living Situation: Spouse Feels Safe at Home: Yes Safety Concerns: Feels Safe At This Time Assistive Devices: None Allergies Allergies Allergy/AdvReac Type Severity Reaction Status Date / Time hydrochlorothiazide AdvReac Severe PANCREATITI Verified 05/16/21 08:46 S Iodinated Contrast Media AdvReac Severe SNEEZE (CT Verified 05/16/21 08:46 dye) lisinopril AdvReac Severe pancreatitis Verified 05/16/21 08:46 as per px ketorolac AdvReac Unknown GI SYMPTOMS Verified 05/16/21 08:46 tramadol AdvReac Unknown "ears Verified 05/16/21 08:46 sensitive" morphine AdvReac Nausea Verified 05/16/21 08:46 Home Meds Home Medications Medication Instructions Recorded Confirmed ondansetron 8 mg disintegrating 8 mg TRANSLINGUAL Q6 PRN 01/19/18 05/16/21 tablet promethazine 25 mg tablet 25 mg PO Q6 PRN 03/16/20 05/16/21 oxycodone 5 mg tablet 5 mg PO Q4H PRN 06/07/20 05/16/21 ropinirole 0.25 mg tablet 0.25 mg PO BID PRN 06/07/20 05/16/21 amlodipine 5 mg tablet 10 mg PO QAM 03/19/21 05/16/21 modafinil 200 mg tablet 200 mg PO QAM 03/19/21 05/16/21 albuterol sulfate 90 mcg/actuation 2 puff INHALATION Q4H PRN 05/16/21 05/16/21 aerosol inhaler fluoxetine 10 mg capsule 10 mg PO QAM 05/16/21 05/16/21 fluoxetine 20 mg capsule 20 mg PO QAM 05/16/21 05/16/21 ibuprofen 800 mg tablet 800 mg PO TID 05/16/21 05/16/21 lorazepam 0.5 mg tablet 0.5 mg SUBLINGUAL DAILY PRN 05/16/21 05/16/21 Previous Rx's Medication Instructions Recorded losartan 25 mg tablet 25 mg PO QAM #30 tab 06/10/20 Results & Data (ED) Vital Signs Vital Signs - 24 hr 05/16/21 07:24 05/16/21 08:03 05/16/21 09:00 Temperature 36.6 C Temperature Source Temporal Artery Scan Pulse Rate 82 Pulse Rate [Finger] 83 60 Pulse Rhythm [Finger] Regular Regular Respiratory Rate 20 20 20 Respiratory Effort / Characteristics Non-Labored Non-Labored Respiratory Depth Normal Normal Blood Pressure 185/119 H Blood Pressure [Left Arm] 171/110 H 181/117 H Blood Pressure Mean 141 Blood Pressure Mean [Left Arm] 130 138 Blood Pressure Position Sitting Pulse Oximetry 100 100 98 Oxygen Delivery Method Room Air Room Air Room Air Sepsis Recent Fever Within 48 Hours No Sepsis New/Unexplained Change in Mental Status No Sepsis Action Taken by Nursing No Action Required Laboratory Data Result diagrams: 05/16/21 07:37 05/16/21 07:37 Lab Results 05/16/21 05/16/21 05/16/21 Range/Units 07:37 07:37 07:37 WBC 11.03 H (4.8-10.8) K/uL RBC 5.09 (4.7-6.1) M/uL Hgb 16.2 (14.0-18.0) g/dL Hct 46.6 (42-52) % MCV 91.6 (80-100) fL MCH 31.8 (25-34) pg MCHC 34.8 (32-36) g/dL RDW Std Deviation 43.5 (36.4-46.3) fL RDW Coeff of Che 13.1 (11.5-14.5) % Plt Count 276 (130-400) K/uL MPV 10.5 H (7.4-10.4) fL Neutrophils % (Manual) 36.1 % Lymphocytes % (Manual) 28.9 % Reactive Lymphs % (Man) 26.3 % Monocytes % (Manual) 6.1 % Eosinophils % (Manual) 2.6 % Neutrophils # (Manual) 3.98 (1.4-6.5) K/uL Total Absolute Neuts 3.98 (1.4-6.5) K/uL Lymphocytes # (Manual) 3.19 (1.2-3.4) K/uL Reactive Lymphs # 2.90 K/uL Total Abs Lymphocytes 6.09 H (1.2-3.4) K/uL Monocytes # (Manual) 0.67 H (0.11-0.59) K/uL Eosinophils # (Manual) 0.29 (0-0.5) K/uL Sodium 137 (136-145) mmol/L Potassium 3.7 (3.5-5.1) mmol/L Chloride 100 (98-107) mmol/L Carbon Dioxide 28 (21-32) mmol/L Anion Gap 9 (3-11) BUN 17 (6-23) mg/dl Creatinine 0.85 (0.6-1.4) mg/dl Est Cr Clr Drug Dosing 131.7 ml/min Est GFR ( Amer) 121.1 ml/min Est GFR (Non-Af Amer) 104.5 ml/min BUN/Creatinine Ratio 20.0 (10-20) Glucose 121 H (70-99(Fasting)) mg/dl Calcium 9.4 (8.5-10.1) mg/dl Total Bilirubin 0.6 (0.2-1.0) mg/dl AST 29 (13-39) U/L ALT 35 (7-52) U/L Alkaline Phosphatase 66 (34-104) U/L Total Protein 7.6 (6.0-8.3) gm/dl Albumin 4.8 (3.4-5.0) gm/dl Globulin 2.8 (2.5-4.0) gm/dl Albumin/Globulin Ratio 1.7 (0.9-2) Triglycerides 377 H (0-150) mg/dl Lipase 1236 H (11-82) U/L Urine Color Urine Appearance (Clear) Urine pH (4.5-7.5) Ur Specific [place] (1.000-1.030) Urine Protein (Negative) Urine Glucose (UA) (Negative) Urine Ketones (Negative) Urine Blood (Negative) Urine Nitrite (Negative) Urine Bilirubin (Negative) Urine Urobilinogen (Negative) Ur Leukocyte Esterase (Negative) SARS-CoV-2, RNA, NAAT (NEGATIVE) 05/16/21 05/16/21 Range/Units 07:40 08:33 WBC (4.8-10.8) K/uL RBC (4.7-6.1) M/uL Hgb (14.0-18.0) g/dL Hct (42-52) % MCV (80-100) fL MCH (25-34) pg MCHC (32-36) g/dL RDW Std Deviation (36.4-46.3) fL RDW Coeff of Che (11.5-14.5) % Plt Count (130-400) K/uL MPV (7.4-10.4) fL Neutrophils % (Manual) % Lymphocytes % (Manual) % Reactive Lymphs % (Man) % Monocytes % (Manual) % Eosinophils % (Manual) % Neutrophils # (Manual) (1.4-6.5) K/uL Total Absolute Neuts (1.4-6.5) K/uL Lymphocytes # (Manual) (1.2-3.4) K/uL Reactive Lymphs # K/uL Total Abs Lymphocytes (1.2-3.4) K/uL Monocytes # (Manual) (0.11-0.59) K/uL Eosinophils # (Manual) (0-0.5) K/uL Sodium (136-145) mmol/L Potassium (3.5-5.1) mmol/L Chloride (98-107) mmol/L Carbon Dioxide (21-32) mmol/L Anion Gap (3-11) BUN (6-23) mg/dl Creatinine (0.6-1.4) mg/dl Est Cr Clr Drug Dosing ml/min Est GFR ( Amer) ml/min Est GFR (Non-Af Amer) ml/min BUN/Creatinine Ratio (10-20) Glucose (70-99(Fasting)) mg/dl Calcium (8.5-10.1) mg/dl Total Bilirubin (0.2-1.0) mg/dl AST (13-39) U/L ALT (7-52) U/L Alkaline Phosphatase (34-104) U/L Total Protein (6.0-8.3) gm/dl Albumin (3.4-5.0) gm/dl Globulin (2.5-4.0) gm/dl Albumin/Globulin Ratio (0.9-2) Triglycerides (0-150) mg/dl Lipase (11-82) U/L Urine Color [place] Urine Appearance Clear (Clear) Urine pH 7.5 (4.5-7.5) Ur Specific [place] 1.009 (1.000-1.030) Urine Protein Negative (Negative) Urine Glucose (UA) Negative (Negative) Urine Ketones Negative (Negative) Urine Blood Negative (Negative) Urine Nitrite Negative (Negative) Urine Bilirubin Negative (Negative) Urine Urobilinogen Negative (Negative) Ur Leukocyte Esterase Negative (Negative) SARS-CoV-2, RNA, NAAT NEGATIVE (NEGATIVE) Administered Medications Amlodipine Besylate (Amlodipine Besylate 5 Mg Tab) 10 mg PO QAM DEE DEE Stop: 06/15/21 10:47 Last Admin: 05/16/21 12:15 Dose: 10 mg Documented by: [id number] Hydromorphone HCl (Hydromorphone Inj 0.5 Mg/0.5 Ml Syr) 0.5 mg IV Q6H PRN PRN Reason: Severe Pain Stop: 05/30/21 10:47 Last Admin: 05/16/21 11:42 Dose: 0.5 mg Documented by: [id number] Lactated Ringer's (Lr) 1,000 mls @ 200 mls/hr IV .Q5H DEE DEE Stop: 06/15/21 10:47 Last Admin: 05/16/21 12:12 Dose: 200 mls/hr Documented by: [id number] Acetaminophen (Ofirmev) 1,000 mg in 100 mls @ 400 mls/hr IV Q8H DEE DEE Stop: 05/18/21 11:59 Last Infusion: 05/16/21 12:44 Dose: 0 mls/hr Documented by: [id number] Admin: 05/16/21 12:14 Dose: 400 mls/hr Documented by: [id number] Ondansetron HCl (Ondansetron Inj 2 Mg/Ml 2 Ml Vial) 4 mg IV Q6H PRN PRN Reason: Nausea Stop: 06/15/21 10:47 Last Admin: 05/16/21 11:34 Dose: 4 mg Documented by: [id number] Discontinued Medications Hydromorphone HCl (Hydromorphone Inj 0.5 Mg/0.5 Ml Syr) 0.5 mg IV NOW STA Stop: 05/16/21 08:31 Last Admin: 05/16/21 08:34 Dose: 0.5 mg Documented by: [id number] Hydromorphone HCl (Hydromorphone Inj 1 Mg/Ml Syringe) 1 mg IV NOW STA Stop: 05/16/21 09:32 Last Admin: 05/16/21 09:37 Dose: 1 mg Documented by: [id number] Promethazine HCl (Phenergan) 25 mg in 51 mls @ 204 mls/hr IV NOW STA Stop: 05/16/21 08:04 Last Infusion: 05/16/21 08:38 Dose: 0 mls/hr Documented by: [id number] Admin: 05/16/21 08:00 Dose: 204 mls/hr Documented by: [id number] Sodium Chloride (Nss 1000ml) 2,000 mls @ 999 mls/hr IV .Q2H1M ONE Stop: 05/16/21 11:29 Last Infusion: 05/16/21 11:49 Dose: 0 mls/hr Documented by: [id number] Admin: 05/16/21 09:36 Dose: 999 mls/hr Documented by: [id number] Losartan Potassium (Losartan Potassium 25 Mg Tab) 25 mg PO NOW STA Stop: 05/16/21 11:03 Last Admin: 05/16/21 12:15 Dose: 25 mg Documented by: [id number] Ondansetron HCl (Ondansetron Inj 2 Mg/Ml 2 Ml Vial) 4 mg IV NOW STA Stop: 05/16/21 07:51 Last Admin: 05/16/21 08:00 Dose: 4 mg Documented by: [id number] Imaging Data Radiologist's Impression: Abdomen/Pelvis CT 05/16/21 07:[address] WITHOUT CONTRAST CT DOSE: 1094.00 mGy.cm HISTORY: Left mid abdominal pain. TECHNIQUE: Multiaxial CT images of the abdomen and pelvis were performed without contrast. A dose lowering technique was utilized adhering to the principles of ALARA. COMPARISON STUDY: Abdomen and pelvis CT 01/19/2018. FINDINGS: The lung bases are clear. No pneumoperitoneum. No pneumatosis. No fractures within the visualized osseous structures. Small fat-containing u mbilical and supraumbilical hernias. Prior cholecystectomy. Hepatic steatosis. A 9 mm hypodense lesion within the hepatic dome. This is technically too small to characterize. The unenhanced spleen, adrenal glands, and pancreas are unremarkable. There is a 4.3 cm hypodense lesion within the right kidney. This contains a small focus of peripheral calcification. This likely represents a cyst. No renal or ureteral stones. No hydronephrosis. The bladder is unremarkable. No pelvic free fluid. There is a left retroaortic renal vein. No retroperitoneal lymphadenopathy. Normal caliber abdominal aorta. Suboptimal evaluation for bowel pathology due to the lack of intravenous and oral contrast. However, there is no definite bowel wall thickening or obstruction. Normal appendix. Moderate well-formed stool seen throughout the colon. A few colonic diverticula. IMPRESSION: 1. No definite bowel wall thickening or obstruction. 2. Hepatic steatosis. 3. Cholecystectomy. 4. No hydronephrosis. 5. A few colonic diverticula. No evidence for acute diverticulitis. 6. Moderate well-formed stool seen throughout the colon. ACT 112: Negative or not required by law. Electronically signed by: Ab Thompson M.D. 05/16/2021 9:27 AM Discharge Plan Visit Data Chief Complaint: Abdominal Pain Stated Complaint: ABDOMINAL PAIN,NAUSEA,VOMITING ED Provider: Jam Main Discharge Problem: Recurrent acute pancreatitis, Abdominal pain, Nausea Patient Disposition: Admitted As Inpatient Discharge Instructions Interventions: ED Discharge Assessment Last Done: 05/16/21 10:15
[2021-05-16 08:13] LABS: Calcium 9.4 mg/dl (8.5-10.1); Creatinine Clr Calc Pharmacy 131.7 ml/min; Est GFR (African American) 121.1 ml/min; Est GFR (Non-African American) 104.5 ml/min; Potassium 3.7 mmol/L (3.5-5.1)
[2021-05-16 08:23] LABS: Albumin Globulin Ratio 1.7 (0.9-2); Albumin Level 4.8 gm/dl (3.4-5.0); Bilirubin,Total 0.6 mg/dl (0.2-1.0); Globulin 2.8 gm/dl (2.5-4.0); Total Protein 7.6 gm/dl (6.0-8.3)
[2021-05-16] MEDS ORDERED: HYDROmorphone INJ 0.5 MG/0.5 ML SYR IV STA (08:30)
[2021-05-16 08:42] LABS: ALC (manual) 6.09 K/uL (1.2-3.4); ANC (manual) 3.98 K/uL (1.4-6.5); Eosinophils # (manual) 0.29 K/uL (0-0.5); Eosinophils % (manual) 2.6 %; Lymphocytes # (manual) 3.19 K/uL (1.2-3.4); Lymphocytes % (manual) 28.9 %; Monocytes # (manual) 0.67 K/uL (0.11-0.59); Monocytes % (manual) 6.1 %; Neutrophils # (manual) 3.98 K/uL (1.4-6.5); Neutrophils % (manual) 36.1 %; Reactive Lymphocytes % (manual) 26.3 %
--- NOTE | 2021-05-16 09:28 | CT Scan Report ---
ABDOMEN AND PELVIS CT WITHOUT CONTRAST CT DOSE: 1094.00 mGy.cm HISTORY: Left mid abdominal pain. TECHNIQUE: Multiaxial CT images of the abdomen and pelvis were performed without contrast. A dose lo wering technique was utilized adhering to the principles of ALARA. COMPARISON STUDY: Abdomen and pelvis CT 01/19/2018. FINDINGS: The lung bases are clear. No pneumoperitoneum. No pneumatosis. No fractures within the visu alized osseous structures. Small fat-containing umbilical and supraumbilical hernias. Prior cholecyst ectomy. Hepatic steatosis. A 9 mm hypodense lesion within the hepatic dome. This is technically too s mall to characterize. The unenhanced spleen, adrenal glands, and pancreas are unremarkable. There is a 4.3 cm hypodense lesion within the right kidney. This contains a small focus of peripheral calcific ation. This likely represents a cyst. No renal or ureteral stones. No hydronephrosis. The bladder is unremarkable. No pelvic free fluid. There is a left retroaortic renal vein. No retroperitoneal lympha denopathy. Normal caliber abdominal aorta. Suboptimal evaluation for bowel pathology due to the lack of intravenous and oral contrast. However, there is no definite bowel wall thickening or obstruction. Normal appendix. Moderate well-formed stool seen throughout the colon. A few colonic diverticula. IMPRESSION: 1. No definite bowel wall thickening or obstruction. 2. Hepatic steatosis. 3. Cholecystectomy. 4. No hydronephrosis. 5. A few colonic diverticula. No evidence for acute diverticulitis. 6. Moderate well-formed stool seen throughout the colon. ACT 112: Negative or not required by law. Electronically signed by: Ab Thompson M.D. 05/16/2021 9:27 AM
[2021-05-16] MEDS ORDERED: SODIUM CHLORIDE 0.9% 1000ML 2,000 ML IV ONE (09:29)
[2021-05-16] MEDS ORDERED: HYDROmorphone INJ 1 MG/ML SYRINGE IV STA (09:31)
--- NOTE | 2021-05-16 10:25 | History & Physical Report ---
Date of Service May 16, 2021 Assessment & Plan (1) Recurrent acute pancreatitis: (2) Hypertension: Plan: This is a 44-year-old male who has significant past medical history of recurrent idiopathic pancreatitis with history of cholecystectomy, RLS, mild SUDHA noncom pliant with CPAP, HTN, depression, Autism who presents ED secondary to abdominal pain x4 hours. Abdominal pain Recurrent acute pancreatitis Admit to [facility] A/P without acute abnormality, lipase elevated to 1236 Exam consistent with pancreatitis N.p.o. except sips chips and meds, bowel rest IV LR at 200 cc/h IV Dilaudid 0.5 mg every 6 hours as needed for severe pain, PRN oxy IR - home dose for moderate pain antiemetics Schedule IV APAP while NPO consult GI lipase in a.m. HTN resume home bp meds, amlodipine, losartan pt missed a.m. dose control pain Depression Autism mood stable, continue prozac Elevated fasting glucose check a1c in a.m. may be 2/2 to pain DVT ppx: SQ Lovenox Dispo: med/surg, likely to remain hospitalized 1-2 days until sx resolved and tolerating diet PCP: Clarissa FULL CODE Pt was seen and examined in collaboration with Dr. Hernandez, please see addendum History of Present Illness Chief Complaint: Abdominal pain x 4 hours. Primary Care Provider: Hudson Romo MD This is a 44-year-old male who has significant past medical history of recurrent idiopathic pancreatitis with history of cholecystectomy, RLS, mild SUDHA noncompliant with CPAP, HTN, depression, Autism who presents ED secondary to abdominal pain x4 hours. Patient woke up this morning around 7 AM with severe epigastric, nonradiating abdominal pain. It was associated with nausea, but not vomiting. It feels similar to his prior history of pancreatitis. He presented to ED emergently, "because I knew what was going on." Pain initially was an 8 out of 10. After getting IV antiemetics and pain medication he is currently at a 4 out of 10. His nausea has subsided but he does have hiccups. He did not try anything at home for his pain. When symptoms come on he describes feeling, "flushed." He denies any documented fever, chills, sweats, lightheadedness, dizziness, chest pain, shortness of breath, URI symptoms, cough, emesis, hematemesis, melena, hematochezia. He denies any issue with urination. He was in his normal state of health yesterday. In ED patient made hemodynamically stable although he was significantly hypertensive secondary to pain. Lab work was significant for mild elevation WBC 11.03, elevated glucose 121 and elevated lipase at 1236. His CT abdomen pelvis was negative for acute abnormality. Significance patient follows [facility] gastroenterology. He also has had work- up at [facility] for his recurrent idiopathic pancreatitis. [facility] feels symptoms related to chronic visceral abdominal pain and brain gut axial dysfunction. They feel chronically elevated lipase is not indicative of history of pancreatitis. He also had work-up at [facility] and records are not available on this at this time. Patient states [facility] opted to do surgical intervention, but he declined. Patient records were reviewed and he did have an EGD EUS in July 2020 which revealed grade 1 esophagitis without bleeding. EUS was otherwise unremarkable. Allergies Allergy/AdvReac Type Severity Reaction Status Date / Time hydrochlorothiazide AdvReac Severe PANCREATITI Verified 05/16/21 08:46 S Iodinated Contrast Media AdvReac Severe SNEEZE (CT Verified 05/16/21 08:46 dye) lisinopril AdvReac Severe pancreatitis Verified 05/16/21 08:46 as per px ketorolac AdvReac Unknown GI SYMPTOMS Verified 05/16/21 08:46 tramadol AdvReac Unknown "ears Verified 05/16/21 08:46 sensitive" morphine AdvReac Nausea Verified 05/16/21 08:46 Home Medications Medication Instructions Recorded Confirmed Type ondansetron 8 mg disintegrating 8 mg TRANSLINGUAL Q6 PRN 01/19/18 05/16/21 History tablet promethazine 25 mg tablet 25 mg PO Q6 PRN 03/16/20 05/16/21 History oxycodone 5 mg tablet 5 mg PO Q4H PRN 06/07/20 05/16/21 History ropinirole 0.25 mg tablet 0.25 mg PO BID PRN 06/07/20 05/16/21 History losartan 25 mg tablet 25 mg PO QAM #30 tab 06/10/20 05/16/21 Rx amlodipine 5 mg tablet 10 mg PO QAM 03/19/21 05/16/21 History modafinil 200 mg tablet 200 mg PO QAM 03/19/21 05/16/21 History albuterol sulfate 90 mcg/actuation 2 puff INHALATION Q4H PRN 05/16/21 05/16/21 History aerosol inhaler fluoxetine 10 mg capsule 10 mg PO QAM 05/16/21 05/16/21 History fluoxetine 20 mg capsule 20 mg PO QAM 05/16/21 05/16/21 History ibuprofen 800 mg tablet 800 mg PO TID 05/16/21 05/16/21 History lorazepam 0.5 mg tablet 0.5 mg SUBLINGUAL DAILY PRN 05/16/21 05/16/21 History Past Med/Surg History Medical History Depression Depression HTN (hypertension) Hypertension Mild obstructive sleep apnea SUDHA (obstructive sleep apnea) Recurrent pancreatitis Renal cyst Restless leg syndrome Surgical History H/O hemorrhoidectomy H/O wisdom tooth extraction History of cholecystectomy History of tonsillectomy Family History Mother Asthma Father Hypertension Prostate cancer Social History Smoking Status: Former smoker Number of Years Since Quit: 20; Second Hand Exposure: No; Hx Alcohol Use: Yes Alcohol type: beer and wine Alcohol Intake Frequency: Never Hx Substance Use: No Preferred Language: Kosovan Communication Ability: Effective Senior Php Software Developer Required: No Beliefs That Will Affect Care: None marital status: Current Living Situation: Spouse Feels Safe at Home: Yes Safety Concerns: Feels Safe At This Time Assistive Devices: None Review of Systems Review of Systems: All systems reviewed & are unremarkable except as noted in HPI & below Physical Exam Physical Exam: Constitutional: WD/WN, vitals as above, patient appears in pain, sitting up in bed, pleasant, conversing easily Head: Normocephalic, Atraumatic Eyes: PERRL, conjunctivae normal, anicteric sclerae ENMT: external ear and nose normal, oropharynx normal Neck: trachea midline, no thyromegaly normal visual inspection Respiratory: normal respiratory effort, lungs clear to auscultation, no wheeze, rales, rhonchi. Normal insp/exp effort, no accessory muscle use Cardiovascular: RRR, no murmur, no edema Vessels: no JVD or carotid bruit Chest: normal inspection of chest Abdomen: normal bowel sounds, soft, layne to palpation in epigastric, no hepatosplenomegaly Musculoskeletal: no cyanosis or clubbing, extremities motor strength 5/5 Skin: no rashes, warm and dry normal turgor Neurologic: PERRL, EOMI, accommodation nl, no face palsy, no dysarthria CN's II-XI intact bilaterally and moves all extremities Psychiatric: A+Ox3, euthymic affect Lymphatic: no cervical or axillary lymphadenopathy : deferred Results & Data Results & Data ([facility]) Vital Signs (Past 12 Hours) Vital Signs Temp Pulse Pulse Resp BP BP Pulse Ox 05/16/21 10:15 85 16 141/91 H 99 05/16/21 09:00 60 20 181/117 H 98 05/16/21 08:03 83 20 171/110 H 100 05/16/21 07:24 36.6 C 82 20 185/119 H 100 Diagnostic Findings Abdomen/Pelvis CT 05/16/21 07:[address] WITHOUT CONTRAST CT DOSE: 1094.00 mGy.cm HISTORY: Left mid abdominal pain. TECHNIQUE: Multiaxial CT images of the abdomen and pelvis were performed without contrast. A dose lowering technique was utilized adhering to the principles of ALARA. COMPARISON STUDY: Abdomen and pelvis CT 01/19/2018. FINDINGS: The lung bases are clear. No pneumoperitoneum. No pneumatosis. No fractures within the visualized osseous structures. Small fat-containing umbilical and supraumbilical hernias. Prior cholecystectomy. Hepatic steatosis. A 9 mm hypodense lesion within the hepatic dome. This is technically too small to characterize. The unenhanced spleen, adrenal glands, and pancreas are unremarkable. There is a 4.3 cm hypodense lesion within the right kidney. This contains a small focus of peripheral calcification. This likely represents a cyst. No renal or ureteral stones. No hydronephrosis. The bladder is unremarkable. No pelvic free fluid. There is a left retroaortic renal vein. No retroperitoneal lymphadenopathy. Normal caliber abdominal aorta. Suboptimal evaluation for bowel pathology due to the lack of intravenous and oral contrast. However, there is no definite bowel wall thickening or obstruction. Normal appendix. Moderate well-formed stool seen throughout the colon. A few colonic diverticula. IMPRESSION: 1. No definite bowel wall thickening or obstruction. 2. Hepatic steatosis. 3. Cholecystectomy. 4. No hydronephrosis. 5. A few colonic diverticula. No evidence for acute diverticulitis. 6. Moderate well-formed stool seen throughout the colon. ACT 112: Negative or not required by law. Electronically signed by: Ab Thompson M.D. 05/16/2021 9:27 AM Medications Administered Current Inpatient Medications Acetaminophen (Acetaminophen 325 Mg Tab) 650 mg PO Q4H PRN PRN Reason: pain/fever Stop: 06/15/21 10:47 Albuterol (Albuterol Hfa 8 Gm Inhaler) 2 puffs INH Q4H PRN PRN Reason: Wheezing Stop: 06/15/21 10:47 Amlodipine Besylate (Amlodipine Besylate 5 Mg Tab) 10 mg PO [facility] Stop: 06/15/21 10:47 Enoxaparin Sodium (Enoxaparin Inj 40 Mg/0.4 Ml Syr) 40 mg SQ Q24H DEE DEE Stop: 06/15/21 21:59 Fluoxetine HCl (Fluoxetine Hcl 10 Mg Cap) [facility] [place] [facility] [place] Stop: 06/16/21 08:59 Fluoxetine HCl (Fluoxetine Hcl 20 Mg Cap) 20 [facility] [place] [facility] [place] Stop: 06/16/21 08:59 Hydromorphone HCl (Hydromorphone Inj 0.5 Mg/0.5 Ml Syr) 0.5 mg IV Q6H PRN PRN Reason: Severe Pain Stop: 05/30/21 10:47 Sodium Chloride (Nss 1000ml) 2,000 mls @ 999 mls/hr IV .Q2H1M ONE Stop: 05/16/21 11:29 Last Admin: 05/16/21 09:36 Dose: 999 mls/hr Documented by: Lactated Ringer's (Lr) 1,000 mls @ 200 mls/hr IV .Q5H DEE DEE Stop: 06/15/21 10:47 Lorazepam (Lorazepam 0.5 Mg Tab) 0.5 mg SL DAILY PRN PRN Reason: Anxiety Stop: 06/15/21 10:47 Losartan Potassium (Losartan Potassium 25 Mg Tab) 25 mg [facility] [place] [facility] [place] Stop: 06/16/21 08:59 Ondansetron HCl (Ondansetron Inj 2 Mg/Ml 2 Ml Vial) 4 mg IV Q6H PRN PRN Reason: Nausea Stop: 06/15/21 10:47 Oxycodone HCl (Oxycodone Hcl Ir 5 Mg Tab (Immediate Release)) 5 mg PO Q4H PRN PRN Reason: moderate pain Stop: 05/30/21 10:47 Ropinirole HCl (Ropinirole Hcl 0.25 Mg Tablet) 0.25 mg PO BID PRN PRN Reason: Restless Leg(S) Stop: 06/15/21 10:47 COVID-19 Results Results COVID-19 Adm Lab Results: RBC 5.09 M/uL (4.7-6.1) 05/16/21 WBC 11.03 K/uL (4.8-10.8) H 05/16/21 Hgb 16.2 g/dL (14.0-18.0) 05/16/21 Hct 46.6 % (42-52) 05/16/21 Plt Count 276 K/uL (130-400) 05/16/21 ANC 3.98 K/uL (1.4-6.5) 05/16/21 ALC 6.09 K/uL (1.2-3.4) H 05/16/21 Neutrophils % (Manual) 36.1 % 05/16/21 Lymphocytes % (Manual) 28.9 % 05/16/21 Reactive Lymphocytes % (Manual) 26.3 % 05/16/21 Monocytes % (Manual) 6.1 % 05/16/21 Eosinophils % (Manual) 2.6 % 05/16/21 Neutrophils # (Manual) 3.98 K/uL (1.4-6.5) 05/16/21 Lymphocytes # (Manual) 3.19 K/uL (1.2-3.4) 05/16/21 Reactive Lymphocytes # 2.90 K/uL 05/16/21 Monocytes # (Manual) 0.67 K/uL (0.11-0.59) H 05/16/21 Eosinophils # (Manual) 0.29 K/uL (0-0.5) 05/16/21 Na 137 mmol/L (136-145) 05/16/21 K 3.7 mmol/L (3.5-5.1) 05/16/21 Cl 100 mmol/L (98-107) 05/16/21 CO2 28 mmol/L (21-32) 05/16/21 Anion Gap 9 (3-11) 05/16/21 BUN 17 mg/dl (6-23) 05/16/21 Creatinine 0.85 mg/dl (0.6-1.4) 05/16/21 BUN/Creatinine Ratio 20.0 (10-20) 05/16/21 Glucose Level 121 mg/dl (70-99(Fasting)) H 05/16/21 Ca 9.4 mg/dl (8.5-10.1) 05/16/21 Total Bilirubin 0.6 mg/dl (0.2-1.0) 05/16/21 AST/SGOT 29 U/L (13-39) 05/16/21 ALT/SGPT 35 U/L (7-52) 05/16/21 Alkaline Phosphatase 66 U/L (34-104) 05/16/21 Total Protein 7.6 gm/dl (6.0-8.3) 05/16/21 Albumin 4.8 gm/dl (3.4-5.0) 05/16/21 Globulin 2.8 gm/dl (2.5-4.0) 05/16/21 Albumin/Globulin Ratio 1.7 (0.9-2) 05/16/21 Triglycerides Level 377 mg/dl (0-150) H 05/16/21 SARS-CoV-2, RNA, NAAT NEGATIVE (NEGATIVE) 05/16/21 Code Status & VTE Plan Code Status FULL CODE VTE Prophylaxis Plan VTE Prophylaxis will be ordered: Yes Supervising Physician Co-Signing Physician Notes Attending Addendum: care coordinated with DAWIT Solitario please refer to her notes for full details, I agree with her notes patient seen and examined, records reviewed by myself as well on exam, patient seen resting in bed not in distress states epigastric is now manageable with the PRN analgesics no nausea/vomiting, fever/chill, dyspnea, chest pain no other symptoms VS noted and reviewed oriented x 3, not in distress, speaks in sentences with no effort nor accessory muscle use normal rate, regular rhythm, no murmurs clear breath sounds bilaterally non distended, soft, moderate tenderness epigastric area no bipedal edema, erythema, warmth no neuro deficits WBC 11 Hg 16 Crea 0.85 Lipase 1,200s TG 377 CT abdomen/pelvis: no pancreatic inflammation, etc ASSESSMENT AND PLAN ACUTE PANCREATITIS possibly related to alcohol intake? AST/ALT/Alk Phos/Bili: normal continue IV LR pain control GI consulted HTN elevated likely from pain continue usual Losartan, Amlodipine monitor other diagnoses and plan of care as per DAWIT Solitario's notes Ivan Hernandez MD
[2021-05-16] MEDS ORDERED: rOPINIRole HCL 0.25 MG TABLET PO PRN (10:48)
[2021-05-16] MEDS ORDERED: HYDROmorphone INJ 0.5 MG/0.5 ML SYR IV PRN (10:48)
[2021-05-16] MEDS ORDERED: ACETAMINOPHEN 325 MG TAB PO PRN (10:48)
[2021-05-16] MEDS ORDERED: LORazepam 0.5 MG TAB SL PRN (10:48)
[2021-05-16] MEDS ORDERED: ALBUTEROL HFA 8 GM INHALER INH PRN (10:48)
[2021-05-16] MEDS ORDERED: SIMETHICONE 80 MG CHEW PO PRN (10:57)
[2021-05-16] MEDS ORDERED: LOSARTAN POTASSIUM 25 MG TAB PO STA (11:02)
[2021-05-16] MEDS: ONDANSETRON INJ 2 MG/ML 2 ML VIAL IV PRN ×2 (11:34→19:36)
[2021-05-16] MEDS: LACTATED RINGER'S 1,000 ML IV SCH ×3 (12:12→22:57)
[2021-05-16] MEDS: ACETAMINOPHEN 1,000 MG/100 ML VIAL IV SCH ×2 (12:14→19:36)
[2021-05-16] MEDS: amLODIPine BESYLATE 5 MG TAB PO SCH (12:15)
--- NOTE | 2021-05-16 15:16 | Gastrointestinal Consultation ---
Date of Consultation May 16, 2021 Assessment & Plan (1) Recurrent acute pancreatitis: IV fluids at 250/h. Ice chips p.o. Analgesics DAVID has been negative and outpatient testing in the past. Will check IgG4. Eventual EUS as an outpatient in 6 to 8 weeks. With normal bile ducts on imaging and no elevation in LFTs no indication for MRCP at this point. GI will continue to follow. Supervising Physician Co-Signing Physician Notes I performed a history and physical examination of the patient today, including specifically on physical exam - soft abdomen. I have discussed the patient's management with the advanced practitioner. Please refer to the nurse practitioner's note for the documented findings and plan of care. Idiopathic recurrent pancreatitis. CT scan normal. He said he was seen at [facility] and [facility] and told no further work up needed. His last EUS showed prominent PD up to 4 mm. I think he may have underlying SOD. Recommend: Follow up with as OP in the office to discuss the utility of ERCP with dual sphincterotomy. Recall GI if needed. History of Present Illness Reason for Consultation: recurrent pancreatitis Requesting Physician: Erlinda Guerrero PA-C Attending Physician: Ivan Hernandez MD History of Present Illness Mr. Pio Henning is a 45 yr o old male patient of Dr. Romo with a history of prior acute pancreatitis without clear etiology. Having had pancreatitis with follow-up normal EUS in 2018 in 2020. He is post laparoscopic cholecystectomy in 2018. He tells me that he often has occurrences of upper abdomen pain that f eels like pancreatitis and is usually able to deal with these by going to a clear liquid diet and eventually his symptoms will improve. However this morning at 7 AM he began with severe upper abdomen pain, nausea and diaphoresis and presented to the ED. On arrival, lipase was elevated at 1236, LFTs were normal. CTAP (noncontrast) did not show any abnormalities other than some constipation. On exam, he is uncomfortable, very tender across the entire upper abdomen mildly hypertensive at 143/79. He does have mild leukocytosis at 11. He is awake alert oriented and hemodynamically stable. Allergies Allergy/AdvReac Type Severity Reaction Status Date / Time hydrochlorothiazide AdvReac Severe PANCREATITI Verified 05/16/21 08:46 S Iodinated Contrast Media AdvReac Severe SNEEZE (CT Verified 05/16/21 08:46 dye) lisinopril AdvReac Severe pancreatitis Verified 05/16/21 08:46 as per px ketorolac AdvReac Unknown GI SYMPTOMS Verified 05/16/21 08:46 tramadol AdvReac Unknown "ears Verified 05/16/21 08:46 sensitive" morphine AdvReac Nausea Verified 05/16/21 08:46 Home Medications Medication Instructions Recorded Confirmed Type ondansetron 8 mg disintegrating 8 mg TRANSLINGUAL Q6 PRN 01/19/18 05/16/21 History tablet promethazine 25 mg tablet 25 mg PO Q6 PRN 03/16/20 05/16/21 History oxycodone 5 mg tablet 5 mg PO Q4H PRN 06/07/20 05/16/21 History ropinirole 0.25 mg tablet 0.25 mg PO BID PRN 06/07/20 05/16/21 History losartan 25 mg tablet 25 mg PO QAM #30 tab 06/10/20 05/16/21 Rx amlodipine 5 mg tablet 10 mg PO QAM 03/19/21 05/16/21 History modafinil 200 mg tablet 200 mg PO QAM 03/19/21 05/16/21 History albuterol sulfate 90 mcg/actuation 2 puff INHALATION Q4H PRN 05/16/21 05/16/21 History aerosol inhaler fluoxetine 10 mg capsule 10 mg PO QAM 05/16/21 05/16/21 History fluoxetine 20 mg capsule 20 mg PO QAM 05/16/21 05/16/21 History ibuprofen 800 mg tablet 800 mg PO TID 05/16/21 05/16/21 History lorazepam 0.5 mg tablet 0.5 mg SUBLINGUAL DAILY PRN 05/16/21 05/16/21 History Patient History Medical History Depression Depression HTN (hypertension) Hypertension Mild obstructive sleep apnea SUDHA (obstructive sleep apnea) Recurrent pancreatitis Renal cyst Restless leg syndrome Surgical History H/O hemorrhoidectomy H/O wisdom tooth extraction History of cholecystectomy History of tonsillectomy Family History Mother Asthma Father Hypertension Prostate cancer Social History Smoking Status: Former smoker Number of Years Since Quit: 20; Second Hand Exposure: No; Hx Alcohol Use: Yes Alcohol type: beer and wine Alcohol Intake Frequency: Never Hx Substance Use: No Preferred Language: Chinese Communication Ability: Effective Director Of Staff Development Required: No Beliefs That Will Affect Care: None marital status: Current Living Situation: Spouse Feels Safe at Home: Yes Safety Concerns: Feels Safe At This Time Assistive Devices: None Review of Systems Review of Systems: ROS: Gen: Denies weakness, fevers, weight loss Eyes: No eye redness, or pain, no recent vision changes Resp: No SOB, no cough Cardio: No palpitations/irregular beats, no chest pain GI: As per HPI, otherwise negative : Denies pain on urination Skin: No jaundice, itching or new rashes Physical Exam Constitutional: well developed and cooperative Appears very uncomfortable, able to give good eye contact and provide a detailed history. Eyes: PERRL, conjunctivae normal, anicteric sclerae ENMT: external ear and nose normal, oropharynx normal Neck: trachea midline, no thyromegaly Respiratory: normal respiratory effort, lungs clear to auscultation Cardiovascular: RRR, no murmur, no edema Gastrointestinal (Abdomen): Inspection/Auscultation: abdomen normal to inspection and + hypoactive bowel sounds Percussion/Palpation: + abdomen tender (Across the entire upper abdomen left more than right), + guarding and abdomen soft; abdomen not rigid Skin: normal turgor; no jaundice Neurologic: PERRL, EOMI, accommodation nl, no face palsy, no dysarthria awake; not confused Psychiatric: A+Ox3, euthymic affect Lymphatic: no cervical or axillary lymphadenopathy Results & Data ([facility]) Vital Signs (Past 12 Hours) Vital Signs Temp Pulse Pulse Resp BP BP BP 05/16/21 14:57 36.9 C 72 17 143/79 H 05/16/21 10:48 36.6 C 70 22 172/114 H 05/16/21 10:15 85 16 141/91 H 05/16/21 09:00 60 20 181/117 H 05/16/21 08:03 83 20 171/110 H 05/16/21 07:24 36.6 C 82 20 185/119 H Pulse Ox 05/16/21 14:57 95 05/16/21 10:48 100 05/16/21 10:15 99 05/16/21 09:00 98 05/16/21 08:03 100 05/16/21 07:24 100 Laboratory Results WBC 11, Hb 16, HCT 46, PLT 276, NA 137, K3.7, CL 100, CO2 28, BUN 17, CR 0.85, glucose 121. INR 1.1 T bili 0.6, AST 29, ALT 35, AP 66, triglycerides 377, lipase 1236. Diagnostic Findings CTAP non contrast 05/16/21: 1. No definite bowel wall thickening or obstruction. 2. Hepatic steatosis. 3. Cholecystectomy. 4. No hydronephrosis. 5. A few colonic diverticula. No evidence for acute diverticulitis. 6. Moderate well-formed stool seen throughout the colon.
[2021-05-16] MEDS: HYDROmorphone INJ 0.5 MG/0.5 ML SYR IV PRN ×2 (15:55→22:57)
[2021-05-16] MEDS: PROMETHAZINE HCL 12.5 MG in SODIUM CHLORIDE 0.9% 50 ML IV PRN (16:42)
[2021-05-16] MEDS: ENOXAPARIN INJ 40 MG/0.4 ML SYR SQ SCH (22:57)
[2021-05-17] MEDS: PROMETHAZINE HCL 12.5 MG in SODIUM CHLORIDE 0.9% 50 ML IV PRN ×2 (00:04→18:09)
[2021-05-17] MEDS: ACETAMINOPHEN 1,000 MG/100 ML VIAL IV SCH ×3 (04:22→19:19)
[2021-05-17] MEDS: LACTATED RINGER'S 1,000 ML IV SCH ×4 (04:22→21:03)
[2021-05-17] MEDS: ONDANSETRON INJ 2 MG/ML 2 ML VIAL IV PRN ×2 (07:43→16:30)
[2021-05-17 07:56] LABS: Basophils # (auto) 0.02 K/uL (0-0.2); Basophils % (auto) 0.2 %; Eosinophils # (auto) 0.16 K/uL (0-0.5); Eosinophils % (auto) 1.6 %; Hematocrit (blood only) 43.3 % (42-52); Hemoglobin 15.6 g/dL (14.0-18.0); Immature Granulocytes # (auto) 0.02 K/uL (0.00-0.02); Immature Granulocytes % (auto) 0.2 %; Lymphocytes # (auto) 2.71 K/uL (1.2-3.4); Lymphocytes % (auto) 27.2 %; Mean Corpuscular Hemoglobin 32.8 pg (25-34); Mean Platelet Volume 10.1 fL (7.4-10.4); Monocytes # (auto) 1.04 K/uL (0.11-0.59); Monocytes % (auto) 10.4 %; Neutrophils # (auto) 6.02 K/uL (1.4-6.5); Neutrophils % (auto) 60.4 %; Platelet Count 247 K/uL (130-400); RDW Coefficient of Variation 13.4 % (11.5-14.5); RDW Standard Deviation 44.4 fL (36.4-46.3); Red Blood Count 4.76 M/uL (4.7-6.1); White Blood Count 9.97 K/uL (4.8-10.8)
[2021-05-17] MEDS: oxyCODONE HCL IR 5 MG TAB (IMMEDIATE RELEASE) PO PRN ×2 (07:58→19:20)
[2021-05-17 08:18] LABS: Albumin Globulin Ratio 1.8 (0.9-2); Albumin Level 4.4 gm/dl (3.4-5.0); BUN Creatinine Ratio 13.8 (10-20); Bilirubin,Total 0.9 mg/dl (0.2-1.0); Chol HDL Ratio 4.7 (0-5); Creatinine Clr Calc Pharmacy 137.5 ml/min; Est GFR (African American) 124.2 ml/min; Est GFR (Non-African American) 107.1 ml/min; Globulin 2.5 gm/dl (2.5-4.0); Potassium 3.6 mmol/L (3.5-5.1); Total Protein 6.9 gm/dl (6.0-8.3)
[2021-05-17] MEDS: amLODIPine BESYLATE 5 MG TAB PO SCH (09:31)
[2021-05-17] MEDS: LOSARTAN POTASSIUM 25 MG TAB PO SCH (09:31)
[2021-05-17] MEDS: FLUoxetine HCL 20 MG CAP PO SCH (09:31)
[2021-05-17] MEDS: FLUoxetine HCL 10 MG CAP PO SCH (09:32)
[2021-05-17 09:47] LABS: Estimated Average Glucose 111 mg/dl; Hemoglobin A1C 5.5 % (4.5-5.6)
[2021-05-17] MEDS: HYDROmorphone INJ 0.5 MG/0.5 ML SYR IV PRN ×3 (10:43→20:29)
--- NOTE | 2021-05-17 13:36 | Hospitalist Progress Note ---
Date of Service May 17, 2021 Assessment & Plan (1) Recurrent acute pancreatitis: (2) Hypertension: Plan: 4-year-old male who has significant past medical history of recurrent idiopathic pancreatitis with history of cholecystectomy, RLS, mild SUDHA noncompliant with CPAP, HTN, depression, Autism who presents ED secondary to abdominal pain x4 hours. Abdominal pain Recurrent acute pancreatitis CT A/P without acute abnormality Lipase elevated to 1236 Patient was started on IVF 200cc/h and opioids GI evaluation appreciated Continue supportive care Patient reports significant improvement of symptoms today compared to yesterday. Reports hunger. Will start clears and monitor tolerance If tolerating, will reduce IVF rate and can advance diet tomorrow Hypertension Continue home amlodipine, losartan Pain control Depression Autism Mood stable Continue prozac Elevated fasting glucose A1c 5.5 DVT ppx: SQ Lovenox PCP: Clarissa FULL CODE Admission and Anticipated Discharge Date Admission Date: May 16, 2021 Subjective Patient seen and examined Reports epigastric pain, improved Had nausea earlier but currently resolved No vomiting Denied chest pain, cough, shortness of breath Denied fevers, chills Denied dysuria, freq,urgency Physical Exam Constitutional: + well hydrated; no acute distress Eyes: PERRL, conjunctivae normal, anicteric sclerae ENMT: external ear and nose normal, oropharynx normal Respiratory: normal respiratory effort, lungs clear to auscultation Cardiovascular: Rate/Rhythm: regular rate and regular rhythm S1 S2 Gastrointestinal (Abdomen): Soft, not distended, mild epigastric tenderness, normal bowel sounds Musculoskeletal: no cyanosis or clubbing, extremities motor strength 5/5 Neurologic: PERRL, EOMI, accommodation nl, no face palsy, no dysarthria Psychiatric: A+Ox3, euthymic affect Results & Data Results & Data ([facility]) Vital Signs (Past 12 Hours) Vital Signs Temp Pulse Resp BP Pulse Ox 05/17/21 07:28 36.9 C 71 18 159/98 H 96 Laboratory Results Abnormal lab results 05/17/21 05/17/21 05/17/21 Range/Units 07:32 07:32 12:00 Wilkin # (Auto) 1.04 H (0.11-0.59) K/uL Glucose 107 H (70-99(Fasting)) mg/dl POC Glucose 102 H (70-99) mg/dl Triglycerides 207 H (0-150) mg/dl Cholesterol 216 H (0-200) mg/dl VLDL Cholesterol, Calc 41 H (0-30) mg/dl
[2021-05-17] MEDS ORDERED: PROCHLORPERAZINE 5 MG in SYRINGE 4 ML IV ONE (20:45)
[2021-05-17] MEDS: ENOXAPARIN INJ 40 MG/0.4 ML SYR SQ SCH (21:15)
[2021-05-18] MEDS: HYDROmorphone INJ 0.5 MG/0.5 ML SYR IV PRN ×4 (03:47→19:58)
[2021-05-18] MEDS: ONDANSETRON INJ 2 MG/ML 2 ML VIAL IV PRN ×3 (03:47→16:54)
[2021-05-18] MEDS: LACTATED RINGER'S 1,000 ML IV SCH ×3 (04:46→20:01)
[2021-05-18] MEDS: ACETAMINOPHEN 1,000 MG/100 ML VIAL IV SCH (04:46)
[2021-05-18 08:30] LABS: Basophils # (auto) 0.03 K/uL (0-0.2); Basophils % (auto) 0.3 %; Eosinophils # (auto) 0.18 K/uL (0-0.5); Eosinophils % (auto) 1.6 %; Hemoglobin 15.3 g/dL (14.0-18.0); Immature Granulocytes # (auto) 0.01 K/uL (0.00-0.02); Immature Granulocytes % (auto) 0.1 %; Lymphocytes # (auto) 3.13 K/uL (1.2-3.4); Lymphocytes % (auto) 28.1 %; Mean Corpuscular Hgb Conc 34.8 g/dL (32-36); Mean Corpuscular Volume 92.1 fL (80-100); Mean Platelet Volume 10.3 fL (7.4-10.4); Monocytes # (auto) 1.22 K/uL (0.11-0.59); Neutrophils # (auto) 6.55 K/uL (1.4-6.5); Neutrophils % (auto) 58.9 %; Platelet Count 255 K/uL (130-400); RDW Coefficient of Variation 13.3 % (11.5-14.5); RDW Standard Deviation 44.5 fL (36.4-46.3); Red Blood Count 4.78 M/uL (4.7-6.1); White Blood Count 11.12 K/uL (4.8-10.8)
[2021-05-18] MEDS: FLUoxetine HCL 10 MG CAP PO SCH (08:36)
[2021-05-18] MEDS: amLODIPine BESYLATE 5 MG TAB PO SCH (08:36)
[2021-05-18] MEDS: FLUoxetine HCL 20 MG CAP PO SCH (08:36)
[2021-05-18] MEDS: LOSARTAN POTASSIUM 25 MG TAB PO SCH (08:37)
[2021-05-18 08:45] LABS: Albumin Globulin Ratio 1.9 (0.9-2); Albumin Level 4.4 gm/dl (3.4-5.0); BUN Creatinine Ratio 11.9 (10-20); Bilirubin,Total 0.8 mg/dl (0.2-1.0); Calcium 9.1 mg/dl (8.5-10.1); Est GFR (African American) 121.7 ml/min; Globulin 2.3 gm/dl (2.5-4.0); Potassium 4.2 mmol/L (3.5-5.1); Total Protein 6.7 gm/dl (6.0-8.3)
[2021-05-18] MEDS: oxyCODONE HCL IR 5 MG TAB (IMMEDIATE RELEASE) PO PRN ×2 (11:39→20:46)
[2021-05-18] MEDS: PROMETHAZINE HCL 12.5 MG in SODIUM CHLORIDE 0.9% 50 ML IV PRN ×2 (12:22→20:54)
--- NOTE | 2021-05-18 14:24 | Hospitalist Progress Note ---
Date of Service May 18, 2021 Assessment & Plan (1) Recurrent acute pancreatitis: Plan: Lipase 1236 down to 76 yesterday Tolerating clear liquid diet, will advance to full liquid diet CT A/P without acute abnormality TG elevated, will start fenofibrate Should follow up with GI for further evaluation of idiopathic pancreatitis (2) Hypertension: Plan: -continue home amlodipine, losartan -BP controlled currently Plan: Depression Autism Mood stable Continue prozac Elevated triglyceride -start fenofibrate Elevated fasting glucose A1c 5.5 DVT ppx: SQ Lovenox PCP: Clarissa FULL CODE Likely discharge tomorrow if he tolerates a full liquid diet Admission and Anticipated Discharge Date Admission Date: May 16, 2021 Subjective Tolerated clear liquid diet. But yesterday had a BM which caused his entire abdomen to spasm. He is afraid of returning home and this happening again Agreeable for diet to be advanced to full liquid diet Physical Exam Physical Exam: Appears well, no acute distress, non toxic Respiratory: Breathing comfortably on room air, no wheezing/rhonchi/rales Cardiovascular: regular rate and rhythm, no murmurs/rubs/gallops Gastrointestinal (Abdomen): soft, non tender, non distended Musculoskeletal: no edema Neurologic: awake, alert, spontaneously moving extremities Results & Data Results & Data ([facility]) Vital Signs (Past 12 Hours) Vital Signs Temp Pulse Resp BP Pulse Ox 05/18/21 07:35 37.0 C 80 16 124/76 96 Laboratory Results Short CBC 05/18/21 Range/Units 07:40 WBC 11.12 H (4.8-10.8) K/uL Hgb 15.3 (14.0-18.0) g/dL Hct 44.0 (42-52) % Plt Count 255 (130-400) K/uL BMP 05/18/21 07:40 Sodium 140 Potassium 4.2 Chloride 104 Carbon Dioxide 30 BUN 10 Creatinine 0.84 Glucose 97 Calcium 9.1 Liver Function 05/18/21 Range/Units 07:40 Total Bilirubin 0.8 (0.2-1.0) mg/dl AST 23 (13-39) U/L ALT 34 (7-52) U/L Alkaline Phosphatase 60 (34-104) U/L Albumin 4.4 (3.4-5.0) gm/dl Medications Administered Current Inpatient Medications Acetaminophen (Acetaminophen 325 Mg Tab) 650 mg PO Q4H PRN PRN Reason: pain/fever Stop: 06/15/21 10:47 Albuterol (Albuterol Hfa 8 Gm Inhaler) 2 puffs INH Q4H PRN PRN Reason: Wheezing Stop: 06/15/21 10:47 Amlodipine Besylate (Amlodipine Besylate 5 Mg Tab) 10 mg PO [facility] Stop: 06/15/21 10:47 Last Admin: 05/18/21 08:36 Dose: 10 mg Documented by: Enoxaparin Sodium (Enoxaparin Inj 40 Mg/0.4 Ml Syr) 40 mg SQ Q24H [facility] Stop: 06/15/21 21:59 Last Admin: 05/17/21 21:15 Dose: Not Given Documented by: Fenofibrate (Fenofibrate Nanocrystallized 145 Mg Tablet) 145 mg PO [facility] Stop: 06/18/21 08:59 Fluoxetine HCl (Fluoxetine Hcl 10 Mg Cap) 10 mg PO [facility] Stop: 06/16/21 08:59 Last Admin: 05/18/21 08:36 Dose: 10 mg Documented by: Fluoxetine HCl (Fluoxetine Hcl 20 Mg Cap) 20 mg PO [facility] Stop: 06/16/21 08:59 Last Admin: 05/18/21 08:36 Dose: 20 mg Documented by: Hydromorphone HCl (Hydromorphone Inj 0.5 Mg/0.5 Ml Syr) 0.5 mg IV Q4H PRN PRN Reason: Severe Pain Stop: 05/30/21 10:47 Last Admin: 05/18/21 14:09 Dose: 0.5 mg Documented by: Lactated Ringer's (Lr) 1,000 mls @ 125 mls/hr IV .Q8H [facility] Stop: 06/15/21 10:47 Last Admin: 05/18/21 13:29 Dose: 125 mls/hr Documented by: Promethazine HCl 12.5 mg/ (Sodium Chloride) 50.5 mls @ 202 mls/hr IV Q6H PRN PRN Reason: Nausea And Vomiting Stop: 06/15/21 16:07 Last Infusion: 05/18/21 12:37 Dose: Infused Documented by: Lorazepam (Lorazepam 0.5 Mg Tab) 0.5 mg SL DAILY PRN PRN Reason: Anxiety Stop: 06/15/21 10:47 Last Admin: 05/18/21 08:40 Dose: 0.5 mg Documented by: Losartan Potassium (Losartan Potassium 25 Mg Tab) 25 mg PO QAM DEE DEE Stop: 06/16/21 08:59 Last Admin: 05/18/21 08:37 Dose: 25 mg Documented by: Ondansetron HCl (Ondansetron Inj 2 Mg/Ml 2 Ml Vial) 4 mg IV Q6H PRN PRN Reason: Nausea Stop: 06/15/21 10:47 Last Admin: 05/18/21 08:41 Dose: 4 mg Documented by: Oxycodone HCl (Oxycodone Hcl Ir 5 Mg Tab (Immediate Release)) 5 mg PO Q4H PRN PRN Reason: moderate pain Stop: 05/30/21 10:47 Last Admin: 05/18/21 11:39 Dose: 5 mg Documented by: Ropinirole HCl (Ropinirole Hcl 0.25 Mg Tablet) 0.25 mg PO BID PRN PRN Reason: Restless Leg(S) Stop: 06/15/21 10:47 Simethicone (Simethicone 80 Mg Chew) 80 mg PO Q6H PRN PRN Reason: gas Stop: 06/15/21 10:56
[2021-05-18] MEDS: ENOXAPARIN INJ 40 MG/0.4 ML SYR SQ SCH (20:01)
[2021-05-19] MEDS: ONDANSETRON INJ 2 MG/ML 2 ML VIAL IV PRN (03:43)
[2021-05-19] MEDS: HYDROmorphone INJ 0.5 MG/0.5 ML SYR IV PRN ×2 (03:43→09:29)
[2021-05-19] MEDS: LACTATED RINGER'S 1,000 ML IV SCH (05:22)
[2021-05-19] MEDS: oxyCODONE HCL IR 5 MG TAB (IMMEDIATE RELEASE) PO PRN (06:44)
[2021-05-19] MEDS: PROMETHAZINE HCL 12.5 MG in SODIUM CHLORIDE 0.9% 50 ML IV PRN (07:20)
[2021-05-19 08:27] LABS: Hematocrit (blood only) 42.9 % (42-52); Hemoglobin 15.2 g/dL (14.0-18.0); Mean Corpuscular Hemoglobin 31.9 pg (25-34); Mean Corpuscular Hgb Conc 35.4 g/dL (32-36); Mean Corpuscular Volume 90.1 fL (80-100); Mean Platelet Volume 10.2 fL (7.4-10.4); Platelet Count 257 K/uL (130-400); RDW Coefficient of Variation 13.1 % (11.5-14.5); RDW Standard Deviation 43.2 fL (36.4-46.3); Red Blood Count 4.76 M/uL (4.7-6.1); White Blood Count 11.99 K/uL (4.8-10.8)
[2021-05-19 08:52] LABS: Albumin Globulin Ratio 1.8 (0.9-2); Albumin Level 4.4 gm/dl (3.4-5.0); BUN Creatinine Ratio 9.3 (10-20); Bilirubin,Total 0.7 mg/dl (0.2-1.0); Calcium 9.1 mg/dl (8.5-10.1); Creatinine Clr Calc Pharmacy 113.4 ml/min; Est GFR (African American) 108.1 ml/min; Est GFR (Non-African American) 93.2 ml/min; Globulin 2.4 gm/dl (2.5-4.0); Potassium 3.5 mmol/L (3.5-5.1); Total Protein 6.8 gm/dl (6.0-8.3)
[2021-05-19] MEDS ORDERED: FENOFIBRATE NANOCRYSTALLIZED 145 MG TABLET PO SCH (09:00)
[2021-05-19] MEDS: FLUoxetine HCL 10 MG CAP PO SCH (09:29)
[2021-05-19] MEDS: LOSARTAN POTASSIUM 25 MG TAB PO SCH (09:29)
[2021-05-19] MEDS: FLUoxetine HCL 20 MG CAP PO SCH (09:29)
[2021-05-19] MEDS: amLODIPine BESYLATE 5 MG TAB PO SCH (09:29)
--- NOTE | 2021-05-19 12:25 | Discharge Summary ---
Date of Service May 19, 2021 Admission HPI Per Admitting Provider This is a 44-year-old male who has significant past medical history of recurrent idiopathic pancreatitis with history of cholecystectomy, RLS, mild SUDHA noncompliant with CPAP, HTN, depression, Autism who presents ED secondary to abdominal pain x4 hours. Patient woke up this morning around 7 AM with severe epigastric, nonradiating abdominal pain. It was associated with nausea, but not vomiting. It feels similar to his prior history of pancreatitis. He presented to ED emergently, "because I knew what was going on." Pain initially was an 8 out of 10. After getting IV antiemetics and pain medication he is currently at a 4 out of 10. His nausea has subsided but he does have hiccups. He did not try anything at home for his pain. When symptoms come on he describes feeling, "flushed." He denies any documented fever, chills, sweats, lightheadedness, dizziness, chest pain, shortness of breath, URI symptoms, cough, emesis, hematemesis, melena, hematochezia. He denies any issue with urination. He was in his normal state of health yesterday. In ED patient made hemodynamically stable although he was significantly hypertensive secondary to pain. Lab work was significant for mild elevation WBC 11.03, elevated glucose 121 and elevated lipase at 1236. His CT abdomen pelvis was negative for acute abnormality. Significance patient follows [facility] gastroenterology. He also has had work- up at [facility] for his recurrent idiopathic pancreatitis. [facility] feels symptoms related to chronic visceral abdominal pain and brain gut axial dysfunction. They feel chronically elevated lipase is not indicative of history of pancreatitis. He also had work-up at [facility] and records are not available on this at this time. Patient states [facility] opted to do surgical intervention, but he declined. Patient records were reviewed and he did have an EGD EUS in July 2020 which revealed grade 1 esophagitis without bleeding. EUS was otherwise unremarkable. Principal Diagnosis Acute on chronic pancreatitis Discharge Exam Patient tolerated a full liquid diet with minimal abdominal discomfort, no abdominal cramping overnight He feels ready for discharge home. Discharge Data Allergies Allergy/AdvReac Type Severity Reaction Status Date / Time hydrochlorothiazide AdvReac Severe PANCREATITI Verified 05/16/21 08:46 S Iodinated Contrast Media AdvReac Severe SNEEZE (CT Verified 05/16/21 08:46 dye) lisinopril AdvReac Severe pancreatitis Verified 05/16/21 08:46 as per px ketorolac AdvReac Unknown GI SYMPTOMS Verified 05/16/21 08:46 tramadol AdvReac Unknown "ears Verified 05/16/21 08:46 sensitive" morphine AdvReac Nausea Verified 05/16/21 08:46 Consultations 05/16/21 09:29 ED Decision to Admit Stat 05/16/21 09:40 Consult Gastroenterology Routine Ordered Studies 05/16/21 07:51 CT abd pelvis wo con Stat Hospital Course (1) Recurrent acute pancreatitis: (2) Hypertension: Mr Pio Henning is a 45 year old man with history of chronic recurrent pa ncreatitis with unclear etiology. He presented to the ER for 05/16 for epigastric pain and had a lipase level of 1236. He had a CT A/P with report as below. With his abdominal pain and elevated lipase level, he was admitted for management of acute on chronic pancreatitis. He was placed on aggressive IVF and placed on bowel rest. With improvement of his symptoms, his diet was slowly advanced and at the time of discharge he was tolerating a full liquid diet which he will continue at home. He was seen by GI here and will follow up with them after discharge for further evaluation of his recurrent pancreatitis. Of note, his triglyceride level was noted to be elevated and he was started on fenofibrate. CT A/P with contrast: IMPRESSION: 1. No definite bowel wall thickening or obstruction. 2. Hepatic steatosis. 3. Cholecystectomy. 4. No hydronephrosis. 5. A few colonic diverticula. No evidence for acute diverticulitis. 6. Moderate well-formed stool seen throughout the colon. Total Time Total Time Spent Total Time Spent (In Minutes): 35 Discharge Plan Discharge Items Patient Disposition: Home - Self-Care Reason For Visit: RECURRENT PANCREATITIS Discharge Diagnosis: Acute on chronic pancreatitis Activity: Resume your previous activity Non-emergency contact: Primary Care Provider and Specialist Call non-emergency contact if: you have any medication questions, your symptoms worsen and your pain is not controlled Follow-up/Referrals: Hudson Romo MD [Primary Care Provider] - (Date & Time 05/23/2021 11:00 AM Provider Hudson Romo MD Department [facility] ) Diet: Full liquid Diet Comment: Slowly advance as tolerated Addtl Attending Provider Instructions: Please follow up with Gastroenterology for further evaluation of her chronic pancreatitis Pending Studies at Discharge: No Stand-Alone Forms: My [facility], Smoking Cessation Medications and DC Order Prescriptions: New fenofibrate nanocrystallized 145 mg Tablet 145 mg PO QAM 30 Days Qty: 30 RF: 1 Continued ondansetron 8 mg tablet,disintegrating 8 mg Translingual Q6 PRN (Reason: Nausea) RF: 0 promethazine 25 mg tablet 25 mg PO Q6 PRN (Reason: Nausea) RF: 0 ibuprofen 800 mg tablet 800 mg PO TID RF: 0 albuterol sulfate 90 mcg/actuation HFA aerosol inhaler 2 puff INHALATION Q4H PRN (Reason: Wheezing) RF: 0 fluoxetine 10 mg capsule 10 mg PO QAM RF: 0 fluoxetine 20 mg capsule 20 mg PO QAM RF: 0 ropinirole 0.25 mg tablet 0.25 mg PO BID PRN (Reason: Restless Leg(S)) RF: 0 oxycodone 5 mg tablet 5 mg PO Q4H PRN (Reason: Pain) RF: 0 losartan 25 mg Tablet 25 mg PO QAM Qty: 30 RF: 0 modafinil 200 mg tablet 200 mg PO QAM RF: 0 amlodipine 5 mg tablet 10 mg PO QAM RF: 0 Discontinued lorazepam 0.5 mg tablet 0.5 mg sublingual DAILY PRN (Reason: Anxiety) RF: 0 Discharge Orders: Discharge Order (Routine); Ordered 05/19/21 Ordered By: Radha Deng Admission Data Admit Date/Time: 05/18/21 18:53 Attending Provider: Radha Deng Admit Provider: Ivan Hernandez Primary Care Provider: Hudson Romo Other Providers: Ivan Hernandez ; Reese Pineda ; Ashley Cramer I. Other Interventions: Discharge Summary Assessment (RN) Last Done: 05/19/21 11:24
[2021-05-20 06:42] LABS: Immunoglobulin G4 40.9 mg/dL (4.0-86.0)
== END 2021-05-19 12:01 | disposition home or self-care (01) | DRG 439 ==
LOC: ED 07:22 → 3W 07:22 → SUATTDRO 09:40 → 3W 10:15

== ENCOUNTER 2022-07-04 09:06 | Observation (INO) ==
[2022-07-04] MEDS ORDERED: HYDROmorphone INJ 0.5 MG/0.5 ML SYR IV STA ×2 (09:22→11:15)
[2022-07-04] MEDS ORDERED: SODIUM CHLORIDE 0.9% 1000ML 1,000 ML IV STA (09:22)
[2022-07-04] MEDS ORDERED: ONDANSETRON INJ 2 MG/ML 2 ML VIAL IV STA (09:22)
[2022-07-04] MEDS ORDERED: ACETAMINOPHEN 1,000 MG/100 ML VIAL IV STA (09:22)
[2022-07-04] MEDS ORDERED: PROMETHAZINE 12.5 MG/50.5 ML BAG IV STA (09:27)
--- NOTE | 2022-07-04 09:27 | Emergency Department Note ---
Impression & Plan Acute upper abdominal pain, Acute pancreatitis, Nausea, Leukocytosis ED Provider Note NAME: MARS ORTEGA AGE: 46 SEX: M : 1975 ARRIVES VIA: Walk-In INFORMANT: [Patient] ED PROVIDER(S): [Trace Hernandes MD] CHIEF COMPLAINT: Nausea, abdominal pain HISTORY OF PRESENT ILLNESS: The patient is a 46-year-old male with a history of chronic pancreatitis. The patient states that 3 hours ago, he began to feel nauseated with some upper abdominal pain. He took some Zofran. The patient states that things have escalated to severe nausea and now sweating with some flushing type sensation across his skin. He has upper abdominal discomfort. He also has had some loose, nonbloody diarrhea this morning. No urinary complaints. No fever, chills, cough or congestion. Patient denies recent alcohol intake, he has not had any recent sick contacts. No bad food eaten. PMHx/PSHx: See Below SOCIAL HISTORY: See Below. PHYSICAL EXAM: GENERAL: Patient is in no acute distress. HEENT: No acute trauma, normocephalic atraumatic, mucous membranes moist, no nasal congestion. NECK: No stridor, no adenopathy, no meningismus, trachea is midline. LUNGS: Clear to auscultation bilaterally, no wheeze, no rhonchi, breath sounds equal. HEART: Without murmurs gallops or rubs, regular rate and rhythm. ABDOMEN: Soft, mildly diffusely tender, no peritonitis, no abdominal distention. EXTREMITIES: No cyanosis or edema, full range of motion of all the joints without pain or difficulty, no signs for acute trauma. NEUROLOGIC: Oriented x 3, no acute motor or sensory deficits, no focal weakness. SKIN: No rash, no jaundice, no diaphoresis. DIFFERENTIAL DIAGNOSIS: Pancreatitis, gastritis, biliary colic, foodborne or viral illness, dehydration, among others. EMERGENCY DEPARTMENT COURSE/PROCEDURES: Prior/Outside records reviewed: Previous GI notes, previous ED visits. ECG per my interpretation: Indication was abdominal pain. The ECG shows a normal sinus rhythm with some sinus arrhythmia. The rate is 63. There is a potential old septal infarct. No concerning ST elevation. No PVCs. The QTc is 401. MEDICAL DECISION MAKING: There is a moderate leukocytosis, this would be consistent with infection or possibly his pain. There was a normal hemoglobin and platelet count. No renal failure or significant electrolyte abnormality. No concerning liver enzyme elevation. ECG shows a normal sinus rhythm, no dysrhythmia or ischemia. Cardiac enzyme testing x1 is not consistent with acute cardiac injury. Lipase is elevated consistent with acute pancreatitis. Urinalysis does not show inf ection. COVID test returned negative. Chest film did not show mediastinal widening, pneumonia or pneumothorax per my review. There was no free air. Abdominal and pelvis CT did not show any evidence for pancreatitis, no acute surgical pathology by CT scan. On exam, there was no fever, no peritonitis. The patient received IV saline for hydration. He received IV Phenergan, IV Zofran, IV Dilaudid. Patient was given IV Tylenol. The patient appears to have acute pancreatitis as the cause for his presentation. Given his findings, hospitalization is indicated. The patient is feeling improved with the treatment provided. I did speak with case management, the on-call hospitalist was consulted. DISPOSITION: Patient's presentation and findings warrant a hospital stay. Past Med/Surg History Medical History Autistic spectrum disorder Diagnosed late in life (high functioning) Signs own consents Depression History of COVID-19 12/05/21 (home test only) Fever, headache, sore throat, cough, slight congestion, night sweats > resolved Hypertension Medical marijuana use For restless leg Mild obstructive sleep apnea Hx CPAP (currently not using d/t recall) Recurrent pancreatitis Renal cyst Restless leg syndrome Surgical History H/O hemorrhoidectomy x2 H/O wisdom tooth extraction History of cholecystectomy History of colonoscopy History of endoscopy EUS History of ERCP last 07/22/2021 @ [facility] Dr. [place] History of esophagogastroduodenoscopy (EGD) History of tonsillectomy (~1992) Family History Mother Asthma Father Prostate cancer Hypertension Other No family history of adverse response to anesthesia Social History Smoking Status: Former smoker Second Hand Exposure: No; Do You Dip or Chew Tobacco: No; Hx Alcohol Use: Yes Alcohol type: wine Alcohol Intake Frequency: Never Hx Substance Use: Yes Prescribed Medications: Marijuana Non-Prescribed Medications: Amphetamines and Marijuana Last Used Substance: Days (ago) Substance Use Type Other:: medical Preferred Language: Greenlandic Communication Ability: Effective Strip Catcher Required: No Beliefs That Will Affect Care: None marital status: Current Living Situation: Spouse Other Information That Helps Us Care for You: No Feels Safe at Home: Yes Safety Concerns: Feels Safe At This Time Assistive Devices: Glasses Allergies Allergies Allergy/AdvReac Type Severity Reaction Status Date / Time hydrochlorothiazide AdvReac Severe PANCREATITI Verified 01/13/22 07:10 S Iodinated Contrast Media AdvReac Severe SNEEZE (CT Verified 01/13/22 07:10 dye) lisinopril AdvReac Severe pancreatitis Verified 01/13/22 07:10 as per px morphine AdvReac Severe Nausea Verified 01/13/22 07:10 ketorolac AdvReac Intermediate GI SYMPTOMS Verified 01/13/22 07:10 tramadol AdvReac Intermediate "ears Verified 01/13/22 07:10 sensitive" Home Meds Home Medications Medication Instructions Recorded Confirmed ondansetron 8 mg disintegrating 8 mg translingual Q6 PRN Nausea 01/19/18 07/04/22 tablet promethazine 25 mg tablet 25 mg PO Q6 PRN Nausea 03/16/20 07/04/22 ropinirole 0.25 mg tablet 0.25 mg PO BID PRN Restless Leg(S) 06/07/20 07/04/22 modafinil 200 mg tablet 200 mg PO QAM 03/19/21 07/04/22 albuterol sulfate 90 mcg/actuation 2 puff inhalation Q4H PRN Wheezing 05/16/21 07/04/22 aerosol inhaler ibuprofen 800 mg tablet 800 mg PO TID PRN Pain 05/16/21 07/04/22 amlodipine 10 mg tablet 10 mg PO QAM 06/22/21 07/04/22 hydromorphone 4 mg tablet 4 mg PO Q6H PRN Pain 06/22/21 07/04/22 acetaminophen 500 mg tablet 500 mg PO Q6H PRN Pain 07/24/21 07/04/22 (Tylenol Extra Strength) Previous Rx's Medication Instructions Recorded losartan 25 mg tablet 25 mg PO QAM #30 tabs 06/10/20 Results & Data (ED) Vital Signs Vital Signs - 24 hr 07/04/22 09:10 07/04/22 09:22 07/04/22 09:36 Temperature 36.0 C L Temperature Source Temporal Artery Scan Pulse Rate 72 67 Pulse Rate [Apical] Pulse Rhythm [Apical] Respiratory Rate 20 Respiratory Effort / Characteristics Non-Labored Respiratory Depth Normal Blood Pressure 174/111 H Blood Pressure Mean 132 Pulse Oximetry 97 Oxygen Delivery Method Room Air Room Air Sepsis Recent Fever Within 48 Hours No Sepsis New/Unexplained Change in Mental Status N/A Sepsis Action Taken by Nursing No Action Required 07/04/22 11:22 Temperature Temperature Source Pulse Rate Pulse Rate [Apical] 70 Pulse Rhythm [Apical] Regular Respiratory Rate 17 Respiratory Effort / Characteristics Respiratory Depth Blood Pressure Blood Pressure Mean Pulse Oximetry 98 Oxygen Delivery Method Room Air Sepsis Recent Fever Within 48 Hours Sepsis New/Unexplained Change in Mental Status Sepsis Action Taken by Prison Medications Current Medication List: was personally reviewed by me Laboratory Data Attestation: I reviewed the patient's lab results. 07/04/22 09:26 07/04/22 09:26 Lab Results 07/04/22 07/04/22 07/04/22 Range/Units 09:26 09:26 09:27 WBC 15.07 H (4.8-10.8) K/ul RBC 5.15 (4.70-6.10) M/uL Hgb 16.1 (14.0-18.0) g/dl Hct 45.4 (42.0-52.0) % MCV 88.2 (80.0-100.0) fL MCH 31.3 (25.0-34.0) pg MCHC 35.5 (32.0-36.0) g/dL RDW Std Deviation 40.6 (36.4-46.3) fL RDW Coeff of Che 12.5 (11.5-14.5) % Plt Count 274 (130-400) K/uL MPV 10.7 (9.4-12.4) fL Immature Gran % (Auto) 0.5 % Neut % (Auto) 75.8 % Lymph % (Auto) 14.5 % [place] % (Auto) 7.8 % Eos % (Auto) 1.0 % Baso % (Auto) 0.4 % Neut # (Auto) 11.43 H (1.40-6.50) K/uL Lymph # (Auto) 2.18 (1.2-3.4) K/uL [place] # (Auto) 1.18 H (0.11-0.59) K/uL Eos # (Auto) 0.15 (0-0.50) K/uL Baso # (Auto) 0.06 (0-0.2) K/uL Immature Gran # (Auto) 0.07 (0.01-0.20) K/uL Sodium 139 (136-145) mmol/L Potassium 3.6 (3.5-5.1) mmol/L Chloride 103 (98-107) mmol/L Carbon Dioxide 27 (21-32) mmol/L Anion Gap 9 (3-11) BUN 17 (6-23) mg/dl Creatinine 0.82 (0.6-1.4) mg/dl Est Cr Clr Drug Dosing 135.0 ml/min Est GFR ( Amer) 122.0 ml/min Est GFR (Non-Af Amer) 105.3 ml/min BUN/Creatinine Ratio 20.7 H (10-20) Glucose 104 H (70-99(Fasting)) mg/dl Calcium 9.0 (8.6-10.3) mg/dl Total Bilirubin 0.4 (0.2-1.0) mg/dl AST 29 (13-39) U/L ALT 39 (7-52) U/L Alkaline Phosphatase 79 (34-104) U/L Troponin I High Sens 5.9 (0-20) pg/ml Total Protein 7.6 (6.0-8.3) gm/dl Albumin 4.9 (3.4-5.0) gm/dl Globulin 2.7 (2.5-4.0) gm/dl Albumin/Globulin Ratio 1.8 (0.9-2) Lipase 750 H (11-82) U/L Urine Color Urine Appearance (Clear) Urine pH (4.5-7.5) Ur Specific [place] (1.000-1.030) Urine Protein (Negative) Urine Glucose (UA) (Negative) Urine Ketones (Negative) Urine Blood (Negative) Urine Nitrite (Negative) Urine Bilirubin (Negative) Urine Urobilinogen (Negative) Ur Leukocyte Esterase (Negative) SARS-CoV-2, RNA, NAAT NEGATIVE (NEGATIVE) 05/09/23 Range/Units 09:56 WBC (4.8-10.8) K/ul RBC (4.70-6.10) M/uL Hgb (14.0-18.0) g/dl Hct (42.0-52.0) % MCV (80.0-100.0) fL MCH (25.0-34.0) pg MCHC (32.0-36.0) g/dL RDW Std Deviation (36.4-46.3) fL RDW Coeff of Che (11.5-14.5) % Plt Count (130-400) K/uL MPV (9.4-12.4) fL Immature Gran % (Auto) % Neut % (Auto) % Lymph % (Auto) % [place] % (Auto) % Eos % (Auto) % Baso % (Auto) % Neut # (Auto) (1.40-6.50) K/uL Lymph # (Auto) (1.2-3.4) K/uL [place] # (Auto) (0.11-0.59) K/uL Eos # (Auto) (0-0.50) K/uL Baso # (Auto) (0-0.2) K/uL Immature Gran # (Auto) (0.01-0.20) K/uL Sodium (136-145) mmol/L Potassium (3.5-5.1) mmol/L Chloride (98-107) mmol/L Carbon Dioxide (21-32) mmol/L Anion Gap (3-11) BUN (6-23) mg/dl Creatinine (0.6-1.4) mg/dl Est Cr Clr Drug Dosing ml/min Est GFR ( Amer) ml/min Est GFR (Non-Af Amer) ml/min BUN/Creatinine Ratio (10-20) Glucose (70-99(Fasting)) mg/dl Calcium (8.6-10.3) mg/dl Total Bilirubin (0.2-1.0) mg/dl AST (13-39) U/L ALT (7-52) U/L Alkaline Phosphatase (34-104) U/L Troponin I High Sens (0-20) pg/ml Total Protein (6.0-8.3) gm/dl Albumin (3.4-5.0) gm/dl Globulin (2.5-4.0) gm/dl Albumin/Globulin Ratio (0.9-2) Lipase (11-82) U/L Urine Color Yellow Urine Appearance Clear (Clear) Urine pH 7.5 (4.5-7.5) Ur Specific [place] 1.011 (1.000-1.030) Urine Protein Negative (Negative) Urine Glucose (UA) Negative (Negative) Urine Ketones Negative (Negative) Urine Blood Negative (Negative) Urine Nitrite Negative (Negative) Urine Bilirubin Negative (Negative) Urine Urobilinogen Negative (Negative) Ur Leukocyte Esterase Negative (Negative) SARS-CoV-2, RNA, NAAT (NEGATIVE) Administered Medications Enoxaparin Sodium (Enoxaparin Inj 40 Mg/0.4 Ml Syr) 40 mg SQ DAILY DEE DEE Stop: 08/03/22 13:33 Last Admin: 07/04/22 13:59 Dose: Not Given Documented By: JORDY Pantoprazole Sodium 40 mg/ (Syringe) 10 mls @ 5 mls/min IV BID DEE DEE Stop: 08/03/22 12:14 Last Admin: 07/04/22 13:47 Dose: 5 mls/min Documented By: JORDY Sodium Chloride (Nss 1000ml) 1,000 mls @ 100 mls/hr IV .Q10H DEE DEE Stop: 08/03/22 13:33 Last Admin: 07/04/22 13:47 Dose: 100 mls/hr Documented By: JORDY Discontinued Medications Hydromorphone HCl (Hydromorphone Inj 0.5 Mg/0.5 Ml Syr) 0.5 mg IV NOW STA Stop: 07/04/22 09:23 Last Admin: 07/04/22 09:38 Dose: 0.5 mg Documented By: JEAN PIERRE Hydromorphone HCl (Hydromorphone Inj 0.5 Mg/0.5 Ml Syr) 0.5 mg IV NOW STA Stop: 07/04/22 11:16 Last Admin: 07/04/22 11:20 Dose: 0.5 mg Documented By: MARCO Sodium Chloride (Nss 1000ml) 1,000 mls @ 999 mls/hr IV .Q1H1M STA Stop: 07/04/22 10:22 Last Infusion: 07/04/22 10:40 Dose: 0 mls/hr Documented By: JEAN PIERRE Admin: 07/04/22 09:38 Dose: 999 mls/hr Documented By: JEAN PIERRE Acetaminophen (Ofirmev) 1,000 mg in 100 mls @ 400 mls/hr IV NOW STA Stop: 07/04/22 09:36 Last Infusion: 07/04/22 09:58 Dose: 0 mls/hr Documented By: JEAN PIERRE Admin: 07/04/22 09:41 Dose: 400 mls/hr Documented By: JEAN PIERRE Promethazine HCl (Phenergan) 12.5 mg in 50.5 mls @ 202 mls/hr IV NOW STA Stop: 07/04/22 09:41 Last Infusion: 07/04/22 10:05 Dose: 0 mls/hr Documented By: JEAN PIERRE Admin: 07/04/22 09:41 Dose: 202 mls/hr Documented By: JEAN PIERRE Ondansetron HCl (Ondansetron Inj 2 Mg/Ml 2 Ml Vial) 4 mg IV NOW STA Stop: 07/04/22 09:23 Last Admin: 07/04/22 09:38 Dose: 4 mg Documented By: JEAN PIERRE Imaging Data Radiologist's Impression: Abdomen/Pelvis CT 07/04/22 09:22 CT SCAN OF THE ABDOMEN AND PELVIS WITHOUT IV CONTRAST CLINICAL HISTORY: Upper abdominal pain. History of pancreatitis. COMPARISON STUDY: Abdominal CT dated 07/24/2021. TECHNIQUE: CT scan of the abdomen and pelvis is performed from the lung bases to the proximal femora. Images are reviewed in the axial, sagittal, and coronal planes. IV contrast was not administered for this examination. Note that the examination was performed in suboptimal fashion without IV contrast. A dose lowering technique was utilized adhering to the principles of ALARA. CT DOSE: 994.88 mGy.cm FINDINGS: Lung bases: The heart is normal in size and without pericardial effusion. The lung bases are clear. A small hiatal hernia is noted. Liver: The unenhanced liver is normal in size and contour. The liver demonstrates diffusely diminished attenuation indicating steatosis. There is no intrahepatic biliary ductal dilatation. An 11 mm left lobe cyst is incidentally noted and unchanged. Gallbladder: Surgically absent noting clips in the gallbladder fossa. Spleen: Normal in size and attenuation. Pancreas: The unenhanced pancreas is grossly unremarkable. Adrenal glands: Unremarkable. Kidneys: The unenhanced kidneys are normal in size and without hydronephrosis. There are no renal calculi identified. A 5.5 cm right renal cyst which contains a thin calcified septation is unchanged. Abdominal vasculature: The abdominal aorta is normal in course and caliber. Bowel: There is mild colonic diverticulosis without CT evidence of acute diverticulitis. No bowel obstruction is seen. The appendix is well-visualized and normal. Peritoneum: There is no intraperitoneal free air or abdominal ascites. There is a large fat-containing umbilical/supra umbilical hernia. Lymphadenopathy: None. Pelvic viscera: The bladder, prostate, and seminal vesicles are normal as visualized. Skeletal structures: No lytic or blastic lesions are seen. IMPRESSION: 1. No acute infectious or inflammatory findings are identified in the abdomen or pelvis. Specifically, there is no CT evidence of acute pancreatitis. 2. Hepatic steatosis. 3. Mild colonic diverticulosis without CT evidence of acute diverticulitis. 4. Additional findings as above. ACT 112: Negative or not required by law. Electronically signed by: Trace Mukherjee M.D. 07/04/2022 10:53 AM Chest X-Ray 07/04/22 09:22 SINGLE VIEW CHEST CLINICAL HISTORY: Generalized abdominal pain. FINDINGS: An AP, portable, upright chest radiograph is compared to study dated 07/24/2021. The examination is degraded by portable technique and apical lordotic positioning. The cardiomediastinal silhouette is unremarkable. The lungs and pleural spaces are clear. No pneumothorax is seen. The bony thorax is grossly i ntact. IMPRESSION: No active disease in the chest. ACT 112: Negative or not required by law. Electronically signed by: Trace Mukherjee M.D. 07/04/2022 10:11 AM Discharge Plan Visit Data Chief Complaint: Nausea Stated Complaint: NAUSEA AND PAIN ED Provider: Trace Hernandes Discharge Problem: Acute upper abdominal pain, Acute pancreatitis, Nausea, Leukocytosis Patient Disposition: Admitted As Inpatient Condition: Fair Discharge Instructions Interventions: ED Discharge Assessment Last Done: 07/04/22 12:57
[2022-07-04 09:54] LABS: Basophils # (auto) 0.06 K/uL (0-0.2); Basophils % (auto) 0.4 %; Eosinophils # (auto) 0.15 K/uL (0-0.50); Hematocrit (blood only) 45.4 % (42.0-52.0); Hemoglobin 16.1 g/dl (14.0-18.0); Immature Granulocytes # (auto) 0.07 K/uL (0.01-0.20); Immature Granulocytes % (auto) 0.5 %; Lymphocytes # (auto) 2.18 K/uL (1.2-3.4); Lymphocytes % (auto) 14.5 %; Mean Corpuscular Hemoglobin 31.3 pg (25.0-34.0); Mean Corpuscular Hgb Conc 35.5 g/dL (32.0-36.0); Mean Corpuscular Volume 88.2 fL (80.0-100.0); Mean Platelet Volume 10.7 fL (9.4-12.4); Monocytes # (auto) 1.18 K/uL (0.11-0.59); Monocytes % (auto) 7.8 %; Neutrophils # (auto) 11.43 K/uL (1.40-6.50); Neutrophils % (auto) 75.8 %; Platelet Count 274 K/uL (130-400); RDW Coefficient of Variation 12.5 % (11.5-14.5); RDW Standard Deviation 40.6 fL (36.4-46.3); Red Blood Count 5.15 M/uL (4.70-6.10); White Blood Count 15.07 K/ul (4.8-10.8)
[2022-07-04 10:05] LABS: BUN Creatinine Ratio 20.7 (10-20); Est GFR (Non-African American) 105.3 ml/min; Potassium 3.6 mmol/L (3.5-5.1)
[2022-07-04 10:06] LABS: Appearance Urine Clear (Clear); Bilirubin Urine Negative (Negative); Blood Urine Negative (Negative); Color Urine Yellow; Glucose Urine UA Negative (Negative); Ketones Urine Negative (Negative); Leukocyte Esterase Urine Negative (Negative); Nitrite Urine Negative (Negative); Protein Urine Negative (Negative); Specific Gravity Urine 1.011 (1.000-1.030); Urobilinogen Urine Negative (Negative); pH Urine 7.5 (4.5-7.5)
[2022-07-04 10:08] LABS: Albumin Globulin Ratio 1.8 (0.9-2); Albumin Level 4.9 gm/dl (3.4-5.0); Bilirubin,Total 0.4 mg/dl (0.2-1.0); Globulin 2.7 gm/dl (2.5-4.0); Total Protein 7.6 gm/dl (6.0-8.3)
[2022-07-04 10:10] LABS: Troponin I High Sensitivity 5.9 pg/ml (0-20)
--- NOTE | 2022-07-04 10:12 | XRay Report ---
SINGLE VIEW CHEST CLINICAL HISTORY: Generalized abdominal pain. FINDINGS: An AP, portable, upright chest radiograph is compared to study dated 07/24/2021. The examina tion is degraded by portable technique and apical lordotic positioning. The cardiomediastinal silhoue tte is unremarkable. The lungs and pleural spaces are clear. No pneumothorax is seen. The bony thorax is grossly intact. IMPRESSION: No active disease in the chest. ACT 112: Negative or not required by law. Electronically signed by: Trace Mukherjee M.D. 07/04/2022 10:11 AM
--- NOTE | 2022-07-04 10:54 | CT Scan Report ---
CT SCAN OF THE ABDOMEN AND PELVIS WITHOUT IV CONTRAST CLINICAL HISTORY: Upper abdominal pain. History of pancreatitis. COMPARISON STUDY: Abdominal CT dated 07/24/2021. TECHNIQUE: CT scan of the abdomen and pelvis is performed from the lung bases to the proximal femora. Images are reviewed in the axial, sagittal, and coronal planes. IV contrast was not administered for this examination. Note that the examination was performed in suboptimal fashion without IV contrast. A dose lowering technique was utilized adhering to the principles of ALARA. CT DOSE: 994.88 mGy.cm FINDINGS: Lung bases: The heart is normal in size and without pericardial effusion. The lung bases are clear. A small hiatal hernia is noted. Liver: The unenhanced liver is normal in size and contour. The liver demonstrates diffusely diminishe d attenuation indicating steatosis. There is no intrahepatic biliary ductal dilatation. An 11 mm left lobe cyst is incidentally noted and unchanged. Gallbladder: Surgically absent noting clips in the gallbladder fossa. Spleen: Normal in size and attenuation. Pancreas: The unenhanced pancreas is grossly unremarkable. Adrenal glands: Unremarkable. Kidneys: The unenhanced kidneys are normal in size and without hydronephrosis. There are no renal dontae culi identified. A 5.5 cm right renal cyst which contains a thin calcified septation is unchanged. Abdominal vasculature: The abdominal aorta is normal in course and caliber. Bowel: There is mild colonic diverticulosis without CT evidence of acute diverticulitis. No bowel obs truction is seen. The appendix is well-visualized and normal. Peritoneum: There is no intraperitoneal free air or abdominal ascites. There is a large fat-containin g umbilical/supra umbilical hernia. Lymphadenopathy: None. Pelvic viscera: The bladder, prostate, and seminal vesicles are normal as visualized. Skeletal structures: No lytic or blastic lesions are seen. IMPRESSION: 1. No acute infectious or inflammatory findings are identified in the abdomen or pelvis. Specifically , there is no CT evidence of acute pancreatitis. 2. Hepatic steatosis. 3. Mild colonic diverticulosis without CT evidence of acute diverticulitis. 4. Additional findings as above. ACT 112: Negative or not required by law. Electronically signed by: Trace Mukherjee M.D. 07/04/2022 10:53 AM
--- NOTE | 2022-07-04 12:15 | History & Physical Report ---
Date of Service July 04, 2022 Assessment & Plan (1) Recurrent pancreatitis: (2) Hypertension: (3) Depression: Plan Admit to MedSurg. Vitals as protocol Activity as tolerated Diet n.p.o. Added IV Protonix for gastritis. GI consult for evaluation of recurrent pancreatitis. His meds have been held except for blood pressure meds. CODE STATUS patient is a full code DVT prophylaxis with Lovenox. Discussed with patient and family about plan of care History of Present Illness Chief Complaint: Severe nausea, epigastric pain for the past 8 hours Primary Care Provider: Hudson Romo MD 46 year old with severe episodes of nausea , epigastric pain over the past 8 hours . He took zofran with minimal relief. Nausea episodes got worse at this time. severe 10/10 pain in the epigastric area . No alcohol intake. No recent sick contacts. one episode of diarrhea in the am. denies any chest pain, shortness of breath. Has had ercp done last with sphincter dilatation and stent placement and removal . Patient is followed by [facility] gastro Has been compliant with his meds . Denies any new medications in the past few weeks Non smoker and no history of alcohol use. Denies any other drug use. Allergies Allergy/AdvReac Type Severity Reaction Status Date / Time hydrochlorothiazide AdvReac Severe PANCREATITI Verified 01/13/22 07:10 S Iodinated Contrast Media AdvReac Severe SNEEZE (CT Verified 01/13/22 07:10 dye) lisinopril AdvReac Severe pancreatitis Verified 01/13/22 07:10 as per px morphine AdvReac Severe Nausea Verified 01/13/22 07:10 ketorolac AdvReac Intermediate GI SYMPTOMS Verified 01/13/22 07:10 tramadol AdvReac Intermediate "ears Verified 01/13/22 07:10 sensitive" Home Medications Medication Instructions Recorded Confirmed Type ondansetron 8 mg disintegrating 8 mg translingual Q6 PRN Nausea 01/19/18 07/04/22 History tablet promethazine 25 mg tablet 25 mg PO Q6 PRN Nausea 03/16/20 07/04/22 History ropinirole 0.25 mg tablet 0.25 mg PO BID PRN Restless Leg(S) 06/07/20 07/04/22 History losartan 25 mg tablet 25 mg PO QAM #30 tabs 06/10/20 07/04/22 Rx modafinil 200 mg tablet 200 mg PO QAM 03/19/21 07/04/22 History albuterol sulfate 90 mcg/actuation 2 puff inhalation Q4H PRN Wheezing 05/16/21 07/04/22 History aerosol inhaler ibuprofen 800 mg tablet 800 mg PO TID PRN Pain 05/16/21 07/04/22 History amlodipine 10 mg tablet 10 mg PO QAM 06/22/21 07/04/22 History hydromorphone 4 mg tablet 4 mg PO Q6H PRN Pain 06/22/21 07/04/22 History acetaminophen 500 mg tablet 500 mg PO Q6H PRN Pain 07/24/21 07/04/22 History (Tylenol Extra Strength) Past Med/Surg History Medical History Autistic spectrum disorder Diagnosed late in life (high functioning) Signs own consents Depression History of COVID-19 12/05/21 (home test only) Fever, headache, sore throat, cough, slight congestion, night sweats > resolved Hypertension Medical marijuana use For restless leg Mild obstructive sleep apnea Hx CPAP (currently not using d/t recall) Recurrent pancreatitis Renal cyst Restless leg syndrome Surgical History H/O hemorrhoidectomy x2 H/O wisdom tooth extraction History of cholecystectomy History of colonoscopy History of endoscopy EUS History of ERCP last 07/22/2021 @ [facility] Dr. Deal History of esophagogastroduodenoscopy (EGD) History of tonsillectomy (~1992) Family History Mother Asthma Father Prostate cancer Hypertension Other No family history of adverse response to anesthesia Social History Smoking Status: Never smoker Second Hand Exposure: No; Do You Dip or Chew Tobacco: No; Hx Alcohol Use: No Hx Substance Use: Yes (medical marijuana (very infrequent)) Prescribed Medications: Marijuana Non-Prescribed Medications: Amphetamines and Marijuana Last Used Substance: Unknown Substance Use Type Other:: Prescribed opiates and medical marijuana as well as Adderall Preferred Language: Romansh Communication Ability: Effective Pool Table Operator Required: No Beliefs That Will Affect Care: None marital status: Current Living Situation: Spouse Feels Safe at Home: Yes Assistive Devices: Glasses Review of Systems Review of Systems: as noted in h/p rest reviewed as negative Physical Exam Physical Exam: Positive findings: Epigastric tenderness, Weakness +, No rebound tenderness. Neuro: AAO HEENT: No JVD CV: S1/S2 + No murmurs Resp: Air entry present bilaterally. no crackles GI: epigastric tenderness Musculoskeletal: No joint pain Skin: (-) rashes , (-) erythema. Psych: normal affect and mood Results & Data Results & Data Vital Signs (Past 12 Hours) Vital Signs Temp Pulse Pulse Resp BP Pulse Ox O2 Del Method 07/04/22 11:22 70 17 98 Room Air 07/04/22 09:36 67 07/04/22 09:22 Room Air 07/04/22 09:10 36.0 C L 72 20 174/111 H 97 Room Air Laboratory Results Laboratory Results WBC 15.07 K/ul (4.8-10.8) H 07/04/22 09:26 RBC 5.15 M/uL (4.70-6.10) 07/04/22 09:26 Hgb 16.1 g/dl (14.0-18.0) 07/04/22 09:26 Hct 45.4 % (42.0-52.0) 07/04/22 09:26 MCV 88.2 fL (80.0-100.0) 07/04/22 09:26 MCH 31.3 pg (25.0-34.0) 07/04/22 09: MCHC 35.5 g/dL (32.0-36.0) 07/04/22 09:26 RDW Std Deviation 40.6 fL (36.4-46.3) 07/04/22 09:26 RDW Coeff of Che 12.5 % (11.5-14.5) 07/04/22 09:26 Plt Count 274 K/uL (130-400) 07/04/22 09:26 MPV 10.7 fL (9.4-12.4) 07/04/22 09:26 Immature Gran % (Auto) 0.5 % 07/04/22 09: Neut % (Auto) 75.8 % 07/04/22 09:26 Lymph % (Auto) 14.5 % 07/04/22 09:26 [place] % (Auto) 7.8 % 07/04/22 09:26 Eos % (Auto) 1.0 % 07/04/22 09:26 Baso % (Auto) 0.4 % 07/04/22 09:26 Neut # (Auto) 11.43 K/uL (1.40-6.50) H 07/04/22 09:26 Lymph # (Auto) 2.18 K/uL (1.2-3.4) 07/04/22 09:26 [place] # (Auto) 1.18 K/uL (0.11-0.59) H 07/04/22 09:26 Eos # (Auto) 0.15 K/uL (0-0.50) 07/04/22 09:26 Baso # (Auto) 0.06 K/uL (0-0.2) 07/04/22 09:26 Immature Gran # (Auto) 0.07 K/uL (0.01-0.20) 07/04/22 09:26 Sodium 139 mmol/L (136-145) 07/04/22 09:26 Potassium 3.6 mmol/L (3.5-5.1) 07/04/22 09:26 Chloride 103 mmol/L (98-107) 07/04/22 09:26 Carbon Dioxide 27 mmol/L (21-32) 07/04/22 09:26 Anion Gap 9 (3-11) 07/04/22 09:26 BUN 17 mg/dl (6-23) 07/04/22 09:26 Creatinine 0.82 mg/dl (0.6-1.4) 07/04/22 09:26 Est Cr Clr Drug Dosing 135.0 ml/min 07/04/22 09:26 Est GFR ( Amer) 122.0 ml/min 07/04/22 09:26 Est GFR (Non-Af Amer) 105.3 ml/min 07/04/22 09:26 BUN/Creatinine Ratio 20.7 (10-20) H 07/04/22 09:26 Glucose 104 mg/dl (70-99(Fasting)) H 07/04/22 09:26 Calcium 9.0 mg/dl (8.6-10.3) 07/04/22 09:26 Total Bilirubin 0.4 mg/dl (0.2-1.0) 07/04/22 09:26 AST 29 U/L (13-39) 07/04/22 09:26 ALT 39 U/L (7-52) 07/04/22 09:26 Alkaline Phosphatase 79 U/L (34-104) 07/04/22 09:26 Troponin I High Sens 5.9 pg/ml (0-20) 07/04/22 09:26 Total Protein 7.6 gm/dl (6.0-8.3) 07/04/22 09:26 Albumin 4.9 gm/dl (3.4-5.0) 07/04/22 09:26 Globulin 2.7 gm/dl (2.5-4.0) 07/04/22 09:26 Albumin/Globulin Ratio 1.8 (0.9-2) 07/04/22 09:26 Lipase 750 U/L (11-82) H 07/04/22 09:26 Urine Color Yellow 07/04/22 09:56 Urine Appearance Clear (Clear) 07/04/22 09:56 Urine pH 7.5 (4.5-7.5) 07/04/22 09:56 Ur Specific [place] 1.011 (1.000-1.030) 07/04/22 09:56 Urine Protein Negative (Negative) 07/04/22 09:56 Urine Glucose (UA) Negative (Negative) 07/04/22 09:56 Urine Ketones Negative (Negative) 07/04/22 09:56 Urine Blood Negative (Negative) 07/04/22 09:56 Urine Nitrite Negative (Negative) 07/04/22 09:56 Urine Bilirubin Negative (Negative) 07/04/22 09:56 Urine Urobilinogen Negative (Negative) 07/04/22 09:56 Ur Leukocyte Esterase Negative (Negative) 07/04/22 09:56 SARS-CoV-2, RNA, NAAT NEGATIVE (NEGATIVE) 07/04/22 09:27 Impressions Abdomen/Pelvis CT 07/04/22 09:22 CT SCAN OF THE ABDOMEN AND PELVIS WITHOUT IV CONTRAST CLINICAL HISTORY: Upper abdominal pain. History of pancreatitis. COMPARISON STUDY: Abdominal CT dated 07/24/2021. TECHNIQUE: CT scan of the abdomen and pelvis is performed from the lung bases to the proximal femora. Images are reviewed in the axial, sagittal, and coronal planes. IV contrast was not administered for this examination. Note that the examination was performed in suboptimal fashion without IV contrast. A dose lowering technique was utilized adhering to the principles of ALARA. CT DOSE: 994.88 mGy.cm FINDINGS: Lung bases: The heart is normal in size and without pericardial effusion. The lung bases are clear. A small hiatal hernia is noted. Liver: The unenhanced liver is normal in size and contour. The liver demonstrates diffusely diminished attenuation indicating steatosis. There is no intrahepatic biliary ductal dilatation. An 11 mm left lobe cyst is incidentally noted and unchanged. Gallbladder: Surgically absent noting clips in the gallbladder fossa. Spleen: Normal in size and attenuation. Pancreas: The unenhanced pancreas is grossly unremarkable. Adrenal glands: Unremarkable. Kidneys: The unenhanced kidneys are normal in size and without hydronephrosis. There are no renal calculi identified. A 5.5 cm right renal cyst which contains a thin calcified septation is unchanged. Abdominal vasculature: The abdominal aorta is normal in course and caliber. Bowel: There is mild colonic diverticulosis without CT evidence of acute diverticulitis. No bowel obstruction is seen. The appendix is well-visualized and normal. Peritoneum: There is no intraperitoneal free air or abdominal ascites. There is a large fat-containing umbilical/supra umbilical hernia. Lymphadenopathy: None. Pelvic viscera: The bladder, prostate, and seminal vesicles are normal as visualized. Skeletal structures: No lytic or blastic lesions are seen. IMPRESSION: 1. No acute infectious or inflammatory findings are identified in the abdomen or pelvis. Specifically, there is no CT evidence of acute pancreatitis. 2. Hepatic steatosis. 3. Mild colonic diverticulosis without CT evidence of acute diverticulitis. 4. Additional findings as above. ACT 112: Negative or not required by law. Electronically signed by: Trace Mukherjee M.D. 07/04/2022 10:53 AM Chest X-Ray 07/04/22 09:22 SINGLE VIEW CHEST CLINICAL HISTORY: Generalized abdominal pain. FINDINGS: An AP, portable, upright chest radiograph is compared to study dated 07/24/2021. The examination is degraded by portable technique and apical lordotic positioning. The cardiomediastinal silhouette is unremarkable. The lungs and pleural spaces are clear. No pneumothorax is seen. The bony thorax is grossly intact. IMPRESSION: No active disease in the chest. ACT 112: Negative or not required by law. Electronically signed by: Trace Mukherjee M.D. 07/04/2022 10:11 AM Abnormal Labs 07/04/22 07/04/22 09:26 09:26 WBC 15.07 H Neut # (Auto) 11.43 H [place] # (Auto) 1.18 H BUN/Creatinine Ratio 20.7 H Glucose 104 H Lipase 750 H Diagnostic Findings Current Inpatient Medications Pantoprazole Sodium 40 mg/ (Syringe) 10 mls @ 5 mls/min IV BID DEE DEE Stop: 08/03/22 12:14 Medications Administered Home Medications Medication Instructions Recorded Confirmed ondansetron 8 mg disintegrating 8 mg translingual Q6 PRN Nausea 01/19/18 07/04/22 tablet promethazine 25 mg tablet 25 mg PO Q6 PRN Nausea 03/16/20 07/04/22 ropinirole 0.25 mg tablet 0.25 mg PO BID PRN Restless Leg(S) 06/07/20 07/04/22 modafinil 200 mg tablet 200 mg PO QAM 03/19/21 07/04/22 albuterol sulfate 90 mcg/actuation 2 puff inhalation Q4H PRN Wheezing 05/16/21 07/04/22 aerosol inhaler ibuprofen 800 mg tablet 800 mg PO TID PRN Pain 05/16/21 07/04/22 amlodipine 10 mg tablet 10 mg PO QAM 06/22/21 07/04/22 hydromorphone 4 mg tablet 4 mg PO Q6H PRN Pain 06/22/21 07/04/22 acetaminophen 500 mg tablet 500 mg PO Q6H PRN Pain 07/24/21 07/04/22 (Tylenol Extra Strength) Previous Rx's Medication Instructions Recorded losartan 25 mg tablet 25 mg PO QAM #30 tabs 06/10/20 Code Status & VTE Plan VTE Prophylaxis Plan VTE Prophylaxis will be ordered: Yes
[2022-07-04] MEDS ORDERED: ONDANSETRON INJ 2 MG/ML 2 ML VIAL IV PRN (13:34)
[2022-07-04] MEDS ORDERED: PROMETHAZINE HCL 12.5 MG in SODIUM CHLORIDE 0.9% 50 ML IV PRN (13:34)
[2022-07-04] MEDS: SODIUM CHLORIDE 0.9% 1000ML 1,000 ML IV SCH ×2 (13:47→23:22)
[2022-07-04] MEDS: PANTOprazole 40 MG in SYRINGE 0 ML IV SCH ×2 (13:47→19:54)
[2022-07-04] MEDS: ENOXAPARIN INJ 40 MG/0.4 ML SYR SQ SCH (13:59)
[2022-07-04] MEDS: HYDROmorphone INJ 0.5 MG/0.5 ML SYR IV PRN (16:55)
[2022-07-04] MEDS ORDERED: ACETAMINOPHEN 325 MG TAB PO PRN (21:06)
[2022-07-04] MEDS ORDERED: oxyCODONE HCL IR 5 MG TAB (IMMEDIATE RELEASE) PO PRN (21:06)
[2022-07-05] MEDS: HYDROmorphone INJ 0.5 MG/0.5 ML SYR IV PRN ×2 (00:36→09:42)
--- NOTE | 2022-07-05 05:59 | Electrocardiogram Report ---
Test Reason : Blood Pressure : / mmHG Vent. Rate : 063 BPM Atrial Rate : 063 BPM P-R Int : 134 ms QRS Dur : 100 ms QT Int : 392 ms P-R-T Axes : 038 010 029 degrees QTc Int : 401 ms Normal sinus rhythm with sinus arrhythmia Minimal voltage criteria for LVH, may be normal variant Septal infarct (cited on or before 04-JUL-2022) Abnormal ECG When compared with ECG of 24-JUL-2021 07:47, Premature atrial complexes are no longer Present Confirmed by Miguel Ángel Duron ([id number]) on 07/05/2022 5:59:06 AM Referred By: Confirmed By:Miguel Ángel Duron
[2022-07-05] MEDS ORDERED: POTASSIUM CHLORIDE CRTAB 20 MEQ TABCR PO STA (08:25)
--- NOTE | 2022-07-05 08:26 | Hospitalist Progress Note ---
Date of Service July 05, 2022 Assessment & Plan (1) Recurrent pancreatitis: (2) Hypertension: (3) Depression: Plan IVF, NPO, on admission Added IV Protonix for poss. gastritis on admission. Lipase [address] abdomen pelvis unremarkable. His meds have been held except for blood pressure meds. Patient is currently feeling much better, diet was advanced to full liquid this morning and he is tolerating it. GI consulted for evaluation of recurrent pancreatitis. Patient was to follow-up with Dr. Deal for ERCP, however as he felt well, this was canceled. GI follow-up now scheduled with Dr. Deal for July 10. Patient is feeling much improved today, tolerating diet, ambulating. He is inquiring about discharge home. Close PCP and GI follow-ups arranged. CODE STATUS patient is a full code DVT prophylaxis with Lovenox. Admission and Anticipated Discharge Date Admission Date: July 04, 2022 Subjective Pt seen in follow up of abd. pain, nausea, 2/2 recurrent pancreatitis Currently sitting up in bed, in no acute distress Reports feeling much better This morning he was advanced to full liquid diet by GI Tells me he is tolerating diet and ambulating without any difficulty Discussed with GI -patient improved, diet advanced, follow-up with Dr. Deal scheduled for July 10 Patient is inquiring about discharge home Review of Systems Review of Systems: All systems reviewed & are unremarkable except as noted in Subjective Physical Exam Physical Exam: General: WD/WN M in NAD HEENT: NC/AT. EOMI. CV: S1/S2, No murmurs Resp: CTAN, no crackles GI: epigastric tenderness to palp. (improved) Musculoskeletal: No joint pain, moves extremities Skin: (-) rashes , (-) erythema. Neuro: AAO, speech fluent, answers appropriately, moves extremities Psych: normal affect and mood Results & Data Results & Data Vital Signs (Past 12 Hours) Vital Signs Temp Pulse Resp BP Pulse Ox O2 Del Method 07/05/22 07:24 36.9 C 68 16 162/102 H 96 Room Air 07/04/22 22:03 36.8 C 72 18 145/86 H 96 Room Air Laboratory Results 07/04/22 07/04/22 07/04/22 Range/Units 09:56 09:27 09:26 WBC (4.8-10.8) K/ul RBC (4.70-6.10) M/uL Hgb (14.0-18.0) g/dl Hct (42.0-52.0) % MCV (80.0-100.0) fL MCH (25.0-34.0) pg MCHC (32.0-36.0) g/dL RDW Std Deviation (36.4-46.3) fL RDW Coeff of Che (11.5-14.5) % Plt Count (130-400) K/uL MPV (9.4-12.4) fL Immature Gran % (Auto) % Neut % (Auto) % Lymph % (Auto) % [place] % (Auto) % Eos % (Auto) % Baso % (Auto) % Neut # (Auto) (1.40-6.50) K/uL Lymph # (Auto) (1.2-3.4) K/uL [place] # (Auto) (0.11-0.59) K/uL Eos # (Auto) (0-0.50) K/uL Baso # (Auto) (0-0.2) K/uL Immature Gran # (Auto) (0.01-0.20) K/uL Sodium 139 (136-145) mmol/L Potassium 3.6 (3.5-5.1) mmol/L Chloride 103 (98-107) mmol/L Carbon Dioxide 27 (21-32) mmol/L Anion Gap 9 (3-11) BUN 17 (6-23) mg/dl Creatinine 0.82 (0.6-1.4) mg/dl Est Cr Clr Drug Dosing 135.0 ml/min Est GFR ( Amer) 122.0 ml/min Est GFR (Non-Af Amer) 105.3 ml/min BUN/Creatinine Ratio 20.7 H (10-20) Glucose 104 H (70-99(Fasting)) mg/dl Calcium 9.0 (8.6-10.3) mg/dl Total Bilirubin 0.4 (0.2-1.0) mg/dl AST 29 (13-39) U/L ALT 39 (7-52) U/L Alkaline Phosphatase 79 (34-104) U/L Troponin I High Sens 5.9 (0-20) pg/ml Total Protein 7.6 (6.0-8.3) gm/dl Albumin 4.9 (3.4-5.0) gm/dl Globulin 2.7 (2.5-4.0) gm/dl Albumin/Globulin Ratio 1.8 (0.9-2) Lipase 750 H (11-82) U/L Urine Color Yellow Urine Appearance Clear (Clear) Urine pH 7.5 (4.5-7.5) Ur Specific [place] 1.011 (1.000-1.030) Urine Protein Negative (Negative) Urine Glucose (UA) Negative (Negative) Urine Ketones Negative (Negative) Urine Blood Negative (Negative) Urine Nitrite Negative (Negative) Urine Bilirubin Negative (Negative) Urine Urobilinogen Negative (Negative) Ur Leukocyte Esterase Negative (Negative) SARS-CoV-2, RNA, NAAT NEGATIVE (NEGATIVE) 07/04/22 Range/Units 09:26 WBC 15.07 H (4.8-10.8) K/ul RBC 5.15 (4.70-6.10) M/uL Hgb 16.1 (14.0-18.0) g/dl Hct 45.4 (42.0-52.0) % MCV 88.2 (80.0-100.0) fL MCH 31.3 (25.0-34.0) pg MCHC 35.5 (32.0-36.0) g/dL RDW Std Deviation 40.6 (36.4-46.3) fL RDW Coeff of Che 12.5 (11.5-14.5) % Plt Count 274 (130-400) K/uL MPV 10.7 (9.4-12.4) fL Immature Gran % (Auto) 0.5 % Neut % (Auto) 75.8 % Lymph % (Auto) 14.5 % [place] % (Auto) 7.8 % Eos % (Auto) 1.0 % Baso % (Auto) 0.4 % Neut # (Auto) 11.43 H (1.40-6.50) K/uL Lymph # (Auto) 2.18 (1.2-3.4) K/uL [place] # (Auto) 1.18 H (0.11-0.59) K/uL Eos # (Auto) 0.15 (0-0.50) K/uL Baso # (Auto) 0.06 (0-0.2) K/uL Immature Gran # (Auto) 0.07 (0.01-0.20) K/uL Sodium (136-145) mmol/L Potassium (3.5-5.1) mmol/L Chloride (98-107) mmol/L Carbon Dioxide (21-32) mmol/L Anion Gap (3-11) BUN (6-23) mg/dl Creatinine (0.6-1.4) mg/dl Est Cr Clr Drug Dosing ml/min Est GFR ( Amer) ml/min Est GFR (Non-Af Amer) ml/min BUN/Creatinine Ratio (10-20) Glucose (70-99(Fasting)) mg/dl Calcium (8.6-10.3) mg/dl Total Bilirubin (0.2-1.0) mg/dl AST (13-39) U/L ALT (7-52) U/L Alkaline Phosphatase (34-104) U/L Troponin I High Sens (0-20) pg/ml Total Protein (6.0-8.3) gm/dl Albumin (3.4-5.0) gm/dl Globulin (2.5-4.0) gm/dl Albumin/Globulin Ratio (0.9-2) Lipase (11-82) U/L Urine Color Urine Appearance (Clear) Urine pH (4.5-7.5) Ur Specific [place] (1.000-1.030) Urine Protein (Negative) Urine Glucose (UA) (Negative) Urine Ketones (Negative) Urine Blood (Negative) Urine Nitrite (Negative) Urine Bilirubin (Negative) Urine Urobilinogen (Negative) Ur Leukocyte Esterase (Negative) SARS-CoV-2, RNA, NAAT (NEGATIVE) Medications Administered Current Inpatient Medications Acetaminophen (Acetaminophen 325 Mg Tab) 650 mg PO Q6H PRN PRN Reason: Fever/pain Stop: 08/03/22 21:05 Amlodipine Besylate (Amlodipine Besylate 5 Mg Tab) 10 mg PO QAM DEE DEE Stop: 08/04/22 08:59 Enoxaparin Sodium (Enoxaparin Inj 40 Mg/0.4 Ml Syr) 40 mg SQ DAILY DEE DEE Stop: 08/03/22 13:33 Last Admin: 07/04/22 13:59 Dose: Not Given Hydromorphone HCl (Hydromorphone Inj 0.5 Mg/0.5 Ml Syr) 0.5 mg IV Q6H PRN PRN Reason: Pain Stop: 07/18/22 13:33 Last Admin: 07/05/22 00:36 Dose: 0.5 mg Pantoprazole Sodium 40 mg/ (Syringe) 10 mls @ 5 mls/min IV BID DEE DEE Stop: 08/03/22 12:14 Last Admin: 07/04/22 19:54 Dose: 5 mls/min Sodium Chloride (Nss 1000ml) 1,000 mls @ 100 mls/hr IV .Q10H DEE DEE Stop: 08/03/22 13:33 Last Admin: 07/04/22 23:22 Dose: 100 mls/hr Promethazine HCl 12.5 mg/ (Sodium Chloride) 50.5 mls @ 202 mls/hr IV Q6H PRN PRN Reason: Nausea And Vomiting Stop: 08/03/22 13:33 Last Infusion: 07/05/22 03:11 Dose: Infused Losartan Potassium (Losartan Potassium 25 Mg Tab) 25 mg PO QAM [facility] Stop: 08/04/22 08:59 Ondansetron HCl (Ondansetron Inj 2 Mg/Ml 2 Ml Vial) 4 mg IV Q6H PRN PRN Reason: Nausea And Vomiting Stop: 08/03/22 13:33 Oxycodone HCl (Oxycodone Hcl Ir 5 Mg Tab (Immediate Release)) 5 - 10 mg PO QID PRN PRN Reason: Pain Stop: 07/18/22 21:05 Last Admin: 07/04/22 21:15 Dose: 5 mg Potassium Chloride (Potassium Chloride Crtab 20 Meq Tabcr) 20 meq PO NOW STA Stop: 07/05/22 08:26
[2022-07-05] MEDS ORDERED: LOSARTAN POTASSIUM 25 MG TAB PO SCH (09:00)
[2022-07-05] MEDS ORDERED: amLODIPine BESYLATE 5 MG TAB PO SCH (09:00)
[2022-07-05] MEDS: SODIUM CHLORIDE 0.9% 1000ML 1,000 ML IV SCH (09:26)
[2022-07-05] MEDS: ENOXAPARIN INJ 40 MG/0.4 ML SYR SQ SCH (09:27)
[2022-07-05] MEDS: PANTOprazole 40 MG in SYRINGE 0 ML IV SCH (09:27)
[2022-07-05] MEDS ORDERED: rOPINIRole HCL 0.25 MG TABLET PO PRN (09:40)
[2022-07-05] MEDS ORDERED: HYDROmorphone HCL 2 MG TAB PO PRN (09:45)
[2022-07-05 10:18] LABS: Basophils # (auto) 0.04 K/uL (0-0.2); Basophils % (auto) 0.4 %; Eosinophils # (auto) 0.13 K/uL (0-0.50); Eosinophils % (auto) 1.2 %; Hematocrit (blood only) 44.1 % (42.0-52.0); Hemoglobin 15.6 g/dl (14.0-18.0); Immature Granulocytes # (auto) 0.04 K/uL (0.01-0.20); Immature Granulocytes % (auto) 0.4 %; Lymphocytes # (auto) 2.78 K/uL (1.2-3.4); Lymphocytes % (auto) 26.2 %; Mean Corpuscular Hemoglobin 31.1 pg (25.0-34.0); Mean Corpuscular Hgb Conc 35.4 g/dL (32.0-36.0); Mean Platelet Volume 10.6 fL (9.4-12.4); Monocytes # (auto) 1.02 K/uL (0.11-0.59); Monocytes % (auto) 9.6 %; Neutrophils % (auto) 62.2 %; Platelet Count 257 K/uL (130-400); RDW Coefficient of Variation 12.8 % (11.5-14.5); RDW Standard Deviation 40.9 fL (36.4-46.3); Red Blood Count 5.01 M/uL (4.70-6.10); White Blood Count 10.61 K/ul (4.8-10.8)
[2022-07-05 10:46] LABS: Albumin Globulin Ratio 1.7 (0.9-2); Albumin Level 4.6 gm/dl (3.4-5.0); BUN Creatinine Ratio 14.5 (10-20); Bilirubin,Total 0.9 mg/dl (0.2-1.0); Calcium 8.8 mg/dl (8.6-10.3); Creatinine Clr Calc Pharmacy 133.4 ml/min; Est GFR (African American) 121.4 ml/min; Est GFR (Non-African American) 104.8 ml/min; Globulin 2.7 gm/dl (2.5-4.0); Potassium 3.8 mmol/L (3.5-5.1); Total Protein 7.3 gm/dl (6.0-8.3)
--- NOTE | 2022-07-05 10:56 | Gastrointestinal Consultation ---
Date of Consultation July 05, 2022 Assessment & Plan (1) Acute pancreatitis: Pt is a 46 yo male admitted w pancreatitis. Hx of ERCP with pancreatic duct sphincterectomy and duct stent placement for stenosis. Was doing well after his last ERCP procedure for treatment on 06/2021 up until recently. - CL diet; advance to low fat as tolerated - IVF hydration w LR - Symptomatic management - Will set up f/u in GI clinic with Dr. Deal to discuss repeat ERCP treatment - Recall GI prn Supervising Physician Co-Signing Physician Notes Patient was seen and examined OVIDIO Blair whose note reflects our findings and plan. Conservative mgt of pancreatitis. Known h/o SOD. Has h/o panc stent. Was feeling good until recently. History of Present Illness Reason for Consultation: Pancreatitis Requesting Physician: Dr. Pedro Jung Attending Physician: Dr. Lisa Brewster History of Present Illness Pt is a 46 yo male w PMHx of RLS, SUDHA, HTN, pancreatitis who presented to ED yesterday w c/o nausea and epigastric pain which had been going on for 8hr prior to arrival. Took Zofran at home wo relief. He denies fever, chills, CP, SOB. Had 1 loose BM yesterday wo rectal bleeding. Labs showed leukocytosis w normal H/H, renal function and LFTs. Lipase 750. CT abd/pelvis wo contrast showed hepatic steatosis and colonic diverticulosis but wo any evidence of pancreatitis otherwise. Pt w hx of pancreatitis ? Sphincter of Oddi dysfunction and found to have pancreatic duct stenosis s/p sphincterectomy, and duct stent placement via ERCP in 06/2021. Pancreatic duct stent fell off spontaneously, not found during repeat ERCP 12/2021. He was doing well wo any more abd pain symptoms up till few days ago. He denies tobacco, ETOH, durg uses. He is asking for his Requip to be restarted for RLS. Today feels abd pain is improved and doens't like to use IV narcotics. He does take Dilaudid 4mg q6hrs prn pain at home. Is passing flatus, no BMs. Allergies Allergy/AdvReac Type Severity Reaction Status Date / Time hydrochlorothiazide AdvReac Severe PANCREATITI Verified 01/13/22 07:10 S Iodinated Contrast Media AdvReac Severe SNEEZE (CT Verified 01/13/22 07:10 dye) lisinopril AdvReac Severe pancreatitis Verified 01/13/22 07:10 as per px morphine AdvReac Severe Nausea Verified 01/13/22 07:10 ketorolac AdvReac Intermediate GI SYMPTOMS Verified 01/13/22 07:10 tramadol AdvReac Intermediate "ears Verified 01/13/22 07:10 sensitive" Home Medications Medication Instructions Recorded Confirmed Type ondansetron 8 mg disintegrating 8 mg translingual Q6 PRN Nausea 01/19/18 07/04/22 History tablet promethazine 25 mg tablet 25 mg PO Q6 PRN Nausea 03/16/20 07/04/22 History ropinirole 0.25 mg tablet 0.25 mg PO BID PRN Restless Leg(S) 06/07/20 07/04/22 History losartan 25 mg tablet 25 mg PO QAM #30 tabs 06/10/20 07/04/22 Rx modafinil 200 mg tablet 200 mg PO QAM 03/19/21 07/04/22 History albuterol sulfate 90 mcg/actuation 2 puff inhalation Q4H PRN Wheezing 05/16/21 07/04/22 History aerosol inhaler ibuprofen 800 mg tablet 800 mg PO TID PRN Pain 05/16/21 07/04/22 History amlodipine 10 mg tablet 10 mg PO QAM 06/22/21 07/04/22 History hydromorphone 4 mg tablet 4 mg PO Q6H PRN Pain 06/22/21 07/04/22 History acetaminophen 500 mg tablet 500 mg PO Q6H PRN Pain 07/24/21 07/04/22 History (Tylenol Extra Strength) Patient History Medical History Autistic spectrum disorder Diagnosed late in life (high functioning) Signs own consents Depression History of COVID-19 12/05/21 (home test only) Fever, headache, sore throat, cough, slight congestion, night sweats > resolved Hypertension Medical marijuana use For restless leg Mild obstructive sleep apnea Hx CPAP (currently not using d/t recall) Recurrent pancreatitis Renal cyst Restless leg syndrome Surgical History H/O hemorrhoidectomy x2 H/O wisdom tooth extraction History of cholecystectomy History of colonoscopy History of endoscopy EUS History of ERCP last 07/22/2021 @ [facility] Dr. Deal History of esophagogastroduodenoscopy (EGD) History of tonsillectomy (~1992) Family History Mother Asthma Father Prostate cancer Hypertension Other No family history of adverse response to anesthesia Social History Smoking Status: Former smoker Second Hand Exposure: No; Do You Dip or Chew Tobacco: No; Hx Alcohol Use: Yes Alcohol type: wine Alcohol Intake Frequency: Never Hx Substance Use: Yes Prescribed Medications: Marijuana Non-Prescribed Medications: Amphetamines and Marijuana Last Used Substance: Days (ago) Substance Use Type Other:: medical Preferred Language: Slovak Communication Ability: Effective Director Career Required: No Beliefs That Will Affect Care: None marital status: Current Living Situation: Spouse Other Information That Helps Us Care for You: No Feels Safe at Home: Yes Safety Concerns: Feels Safe At This Time Assistive Devices: None Review of Systems Review of Systems: All systems reviewed & are unremarkable except as noted in HPI & below Physical Exam Constitutional: WD/WN, vitals as above well groomed, cooperative and comfortable Eyes: PERRL, conjunctivae normal, anicteric sclerae ENMT: external ear and nose normal, oropharynx normal Respiratory: normal respiratory effort, lungs clear to auscultation Cardiovascular: RRR, no murmur, no edema Gastrointestinal (Abdomen): normal bowel sounds, soft, nontender, no hepatospl enomegaly epigastric TTP Skin: no rashes, warm and dry no jaundice Neurologic: Motor/Sensory: no asterixis Psychiatric: A+Ox3, euthymic affect Lymphatic: no lymphedema Results & Data Vital Signs (Past 12 Hours) Vital Signs Temp Pulse Resp BP Pulse Ox O2 Del Method 07/05/22 07:24 36.9 C 68 16 162/102 H 96 Room Air (1) Acute pancreatitis Acute pancreatitis complication: no infection or necrosis Pancreatitis type: unspecified pancreatitis type Qualified Code(s): K85.90 - Acute pancreatitis without necrosis or infection, unspecified
[2022-07-05] MEDS ORDERED: LACTATED RINGER'S 1,000 ML IV SCH (11:00)
--- NOTE | 2022-07-05 15:22 | Discharge Summary ---
Date of Service July 05, 2022 Admission HPI Per Admitting Provider 46 year old with severe episodes of nausea , epigastric pain over the past 8 hours . He took zofran with minimal relief. Nausea episodes got worse at this time. severe 10/10 pain in the epigastric area . No alcohol intake. No recent sick contacts. one episode of diarrhea in the am. denies any chest pain, shortness of breath. Has had ercp done last with sphincter dilatation and stent placement and removal . Patient is followed by [facility] Has been compliant with his meds . Denies any new medications in the past few weeks Non smoker and no history of alcohol use. Denies any other drug use. Admission Exam Per Admitting Provider Positive findings: Epigastric tenderness, Weakness +, No rebound tenderness. Neuro: AAO HEENT: No JVD CV: S1/S2 + No murmurs Resp: Air entry present bilaterally. no crackles GI: epigastric tenderness Musculoskeletal: No joint pain Skin: (-) rashes , (-) erythema. Psych: normal affect and mood Principal Diagnosis Nausea, recurrent pancreatitis Discharge Exam General: WD/WN M in NAD HEENT: NC/AT. EOMI. CV: S1/S2, No murmurs Resp: CTAN, no crackles GI: epigastric tenderness to palp. (improved) Musculoskeletal: No joint pain, moves extremities Skin: (-) rashes , (-) erythema. Neuro: AAO, speech fluent, answers appropriately, moves extremities Psych: normal affect and mood Discharge Data Allergies Allergy/AdvReac Type Severity Reaction Status Date / Time hydrochlorothiazide AdvReac Severe PANCREATITI Verified 01/13/22 07:10 S Iodinated Contrast Media AdvReac Severe SNEEZE (CT Verified 01/13/22 07:10 dye) lisinopril AdvReac Severe pancreatitis Verified 01/13/22 07:10 as per px morphine AdvReac Severe Nausea Verified 01/13/22 07:10 ketorolac AdvReac Intermediate GI SYMPTOMS Verified 01/13/22 07:10 tramadol AdvReac Intermediate "ears Verified 01/13/22 07:10 sensitive" Consultations 07/04/22 11:14 ED Decision to Admit Stat 07/04/22 13:34 Consult Gastroenterology Routine Ordered Studies 07/04/22 09:22 CT abd pelvis wo con Stat FINDINGS: Lung bases: The heart is normal in size and without pericardial effusion. The lung bases are clear. A small hiatal hernia is noted. Liver: The unenhanced liver is normal in size and contour. The liver demonstrates diffusely diminished attenuation indicating steatosis. There is no intrahepatic biliary ductal dilatation. An 11 mm left lobe cyst is incidentally noted and unchanged. Gallbladder: Surgically absent noting clips in the gallbladder fossa. Spleen: Normal in size and attenuation. Pancreas: The unenhanced pancreas is grossly unremarkable. Adrenal glands: Unremarkable. Kidneys: The unenhanced kidneys are normal in size and without hydronephrosis. There are no renal calculi identified. A 5.5 cm right renal cyst which contains a thin calcified septation is unchanged. Abdominal vasculature: The abdominal aorta is normal in course and caliber. Bowel: There is mild colonic diverticulosis without CT evidence of acute diverticulitis. No bowel obstruction is seen. The appendix is well-visualized and normal. Peritoneum: There is no intraperitoneal free air or abdominal ascites. There is a large fat-containing umbilical/supra umbilical hernia. Lymphadenopathy: None. Pelvic viscera: The bladder, prostate, and seminal vesicles are normal as visualized. Skeletal structures: No lytic or blastic lesions are seen. IMPRESSION: 1. No acute infectious or inflammatory findings are identified in the abdomen or pelvis. Specifically, there is no CT evidence of acute pancreatitis. 2. Hepatic steatosis. 3. Mild colonic diverticulosis without CT evidence of acute diverticulitis. 4. Additional findings as above. Hospital Course (1) Recurrent pancreatitis: (2) Hypertension: (3) Depression: Plan IVF, NPO, on admission Added IV Protonix for poss. gastritis on admission. Lipase [address] abdomen pelvis unremarkable. His meds have been held except for blood pressure meds. Patient is currently feeling much better, diet was advanced to full liquid this morning and he is tolerating it. GI consulted for evaluation of recurrent pancreatitis. Patient was to follow-up with Dr. Deal for ERCP, however as he felt well, this was canceled. GI follow-up now scheduled with Dr. Deal for July 10. Patient is feeling much improved today, tolerating diet, ambulating. He is inquiring about discharge home. Close PCP and GI follow-ups arranged. Total Time Total Time Spent Total Time Spent (In Minutes): 40 Discharge Plan Discharge Items Patient Disposition: Home - Self-Care Reason For Visit: NAUSEA AND PAIN Discharge Diagnosis: Nausea, recurrent pancreatitis Condition on Discharge: Fair Activity: Per Instructions section Non-emergency contact: Primary Care Provider and Cap Blocker Call non-emergency contact if: you have any medication questions and your symptoms worsen Follow-up/Referrals: Rafiq Deal DO [Physician] - (Date & Time 07/10/2022 11:00 AM Provider Rafiq Deal DO Department Gastroenterology, [facility] ) Hudson Romo MD [Primary Care Provider] - (Date & Time 07/12/2022 11:00 AM Provider Hudson Romo MD Department Family Practice [facility] ) Diet: Full liquid Addtl Attending Provider Instructions: Follow-up with primary care provider, and medical scribe. The appointment with primary care provider was scheduled for you for July 12. Follow-up with Dr. Deal, gastroenterology, was scheduled for you for July 10. Make sure to stay well-hydrated, continue full liquid diet/ as tolerated. Pending Studies at Discharge: No Stand-Alone Forms: My [facility], Smoking Cessation Medications and DC Order Prescriptions: Continued ondansetron 8 mg tablet,disintegrating 8 mg Translingual Q6 PRN (Reason: Nausea) promethazine 25 mg tablet 25 mg PO Q6 PRN (Reason: Nausea) ibuprofen 800 mg tablet 800 mg PO TID PRN (Reason: Pain) Rx Instructions: Take with food albuterol sulfate 90 mcg/actuation HFA aerosol inhaler 2 puff INHALATION Q4H PRN (Reason: Wheezing) amlodipine 10 mg Tablet 10 mg PO QAM hydromorphone 4 mg Tablet 4 mg PO Q6H PRN (Reason: Pain) acetaminophen [Tylenol Extra Strength] 500 mg Tablet 500 mg PO Q6H PRN (Reason: Pain) ropinirole 0.25 mg tablet 0.25 mg PO BID PRN (Reason: Restless Leg(S)) losartan 25 mg Tablet 25 mg PO QAM Qty: 30 0RF modafinil 200 mg tablet 200 mg PO QAM Discharge Orders: Discharge Order (Routine); Ordered 07/05/22 Ordered By: Pedro Jung Admission Data Admit Date/Time: 07/04/22 11:45 Attending Provider: Pedro Jung Admit Provider: Thiago Grady Primary Care Provider: Hudson Romo Other Providers: Thiago Grady ; Lisa Brewster
== END 2022-07-05 16:07 | disposition home or self-care (01) ==
LOC: ED 09:06 → 3N 09:06 → SUATTDRO 11:45 → 3N 12:57

== ENCOUNTER 2022-08-13 16:04 | Inpatient (IN) ==
[2022-08-13] MEDS: SODIUM CHLORIDE 0.9% 1000ML 1,000 ML IV STA ×2 (16:27→16:45)
[2022-08-13] MEDS ORDERED: ONDANSETRON INJ 2 MG/ML 2 ML VIAL IV STA (16:38)
[2022-08-13] MEDS ORDERED: HYDROmorphone INJ 0.5 MG/0.5 ML SYR IV STA (16:38)
[2022-08-13] MEDS ORDERED: ACETAMINOPHEN 1,000 MG/100 ML VIAL IV STA (16:38)
[2022-08-13 16:41] LABS: Basophils # (auto) 0.05 K/uL (0-0.2); Basophils % (auto) 0.4 %; Eosinophils # (auto) 0.14 K/uL (0-0.50); Eosinophils % (auto) 1.2 %; Hematocrit (blood only) 43.8 % (42.0-52.0); Hemoglobin 15.7 g/dl (14.0-18.0); Immature Granulocytes # (auto) 0.05 K/uL (0.01-0.20); Immature Granulocytes % (auto) 0.4 %; Lymphocytes # (auto) 2.43 K/uL (1.2-3.4); Lymphocytes % (auto) 20.8 %; Mean Corpuscular Hgb Conc 35.8 g/dL (32.0-36.0); Mean Corpuscular Volume 86.6 fL (80.0-100.0); Monocytes # (auto) 1.07 K/uL (0.11-0.59); Monocytes % (auto) 9.2 %; Neutrophils # (auto) 7.93 K/uL (1.40-6.50); Platelet Count 292 K/uL (130-400); RDW Coefficient of Variation 12.5 % (11.5-14.5); RDW Standard Deviation 38.9 fL (36.4-46.3); Red Blood Count 5.06 M/uL (4.70-6.10); White Blood Count 11.67 K/ul (4.8-10.8)
--- NOTE | 2022-08-13 16:41 | Emergency Department Note ---
Impression & Plan Acute pancreatitis ED Provider Note HISTORY OF PRESENT ILLNESS: Patient is a 46-year-old male presenting with epigastric and left upper quadrant abdominal pain. Reports symptoms began about 2 hours ago. He has a history of chronic pancreatitis and reports this feels very similar. He took Zofran and Dilaudid at home without any relief of symptoms. He reports nausea but no vom iting. Denies any diarrhea. Reports shortness of breath because taking a deep breath hurts his abdomen. Denies any fevers. Denies any recent travel. Denies any recent exposure to sick contacts ROS: as above PHYSICAL EXAM: Constitutional: Patient appears in no acute distress. HENT: Head: Normocephalic and atraumatic. Eyes: EOMI, PERRL Mouth/Throat: Mucous membranes moist. Neck: Trachea midline. Neck supple. Cardiovascular: RRR, No murmurs, rubs or gallops. Intact distal pulses. Pulmonary/Chest: No respiratory distress. Breath sounds clear and equal bilaterally. No wheezes or rales. Abdominal: BS +. Abdomen soft, no rebound or guarding. TTP in epigastric and LUQ Musculoskeletal: No edema, tenderness or deformity noted. Skin: Warm and dry. No rash, erythema, pallor or cyanosis Psychiatric: Appropriate mood and affect for situation. Neurological: Alert and keenly responsive. CN II-XII grossly intact, moving all extremities equally and fully. MDM: - Vitals signs showed hypertension. - History obtained via patient. Patient presents with epigastric and left upper quadrant abdominal pain. Patient reports around 2 hours prior to arrival he developed acute onset of epigastric abdominal pain. He has a history of chronic pancreatitis and reports this feels similar. Reports nausea but no vomiting. Denies any fevers. Denies any recent travel. He took some Zofran and Dilaudid at home without any relief of symptoms. Denies any chest pain. He reports pain with taking deep breath, as it "aggravates his abdomen." - Chronic conditions affecting care: HTN; recurrent pancreatitis - Differential diagnoses include, but are not limited to: ACS; gastritis; p ancreatitis; cholecystitis - Order placed for continuous cardiac monitoring. At this time, monitor showed rate of 95 bpm with normal sinus rhythm, per my interpretation. - External medical records reviewed. Gastroenterology clinic note dated 07/14/2022 was reviewed. Patient has a history of sphincter of Oddi I dysfunction. He has a history of recurrent pancreatitis stemming over the last 6 years. Patient had a pancreatic stent placed on 07/14/2022. - EKG reviewed by myself showed normal sinus rhythm. Rate 75 bpm. QTc 444. No acute ischemic changes. - Laboratory workup interpreted by myself showed slight leukocytosis (WBC 11.67); normal electrolytes; elevated lipase (784); normal troponin - Patient initially given 1L NS, 4 mg IV zofran, 1g IV tylenol and 0.5 mg IV dilaudid. He was still complaining of significant pain and nausea on reassessment. Requesting more dilaudid and phenergan. Ordered IV phenergan. - Discussion was had with neonatal social worker about patient's case and need for admission. - Hospitalist consulted for admission - [facility] ASSESSMENT AND PLAN: Diagnosis: acute pancreatitis Plan: admit Past Med/Surg History Medical History (Updated 08/13/22 @ 18:56 by Sirena Swift MD) ADD (attention deficit disorder) Autistic spectrum disorder Diagnosed late in life (high functioning) Signs own consents Depression History of COVID-19 12/05/21 (home test only) Fever, headache, sore throat, cough, slight congestion, night sweats > resolved Hypertension Medical marijuana use For restless leg Mild obstructive sleep apnea Hx CPAP (currently not using d/t recall) Recurrent pancreatitis Renal cyst Restless leg syndrome Surgical History H/O hemorrhoidectomy x2 H/O wisdom tooth extraction History of cholecystectomy History of colonoscopy History of endoscopy EUS 12/11/17 Grade 2 view, MAC 3, ETT 7.5. History of ERCP last 07/22/2021 @ [facility] Dr. Say MARISCAL. History of esophagogastroduodenoscopy (EGD) 01/13/22 Grade 2 view, MAC 4, ETT 7.5. History of tonsillectomy (~1992) Family History Mother Asthma Father Prostate cancer Hypertension Other No family history of adverse response to anesthesia Social History (Reviewed 07/14/22 @ 08:10 by KishoreWONG Sanchez Smoking Status: Former smoker Tobacco Type: Cigarettes Second Hand Exposure: No; Do You Dip or Chew Tobacco: No; Hx Alcohol Use: Yes Alcohol type: wine Alcohol Intake Frequency: Never Hx Substance Use: Yes Prescribed Medications: Marijuana Non-Prescribed Medications: Amphetamines and Marijuana Last Used Substance: Days (ago) Substance Use Type Other:: medical Preferred Language: Wallisian Communication Ability: Effective Shank Archer Required: No Beliefs That Will Affect Care: None marital status: Current Living Situation: Spouse Feels Safe at Home: Yes Assistive Devices: None Allergies Allergies Allergy/AdvReac Type Severity Reaction Status Date / Time bee venom protein (honey bee) Allergy Intermediate swelling Verified 08/13/22 18:23 dexchlorpheniramine Allergy Intermediate hives Verified 08/13/22 18:23 [From Polaramine Expectorant] guaifenesin Allergy Intermediate hives Verified 08/13/22 18:23 [From Polaramine Expectorant] pseudoephedrine Allergy Intermediate hives Verified 08/13/22 18:23 [From Polaramine Expectorant] hydrochlorothiazide AdvReac Severe PANCREATITI Verified 08/13/22 18:23 S Iodinated Contrast Media AdvReac Severe SNEEZE (CT Verified 08/13/22 18:23 dye) lisinopril AdvReac Severe pancreatitis Verified 08/13/22 18:23 as per px morphine AdvReac Severe Nausea and Verified 08/13/22 18:23 vomiting ketorolac AdvReac Intermediate bleeding Verified 08/13/22 18:23 tramadol AdvReac Intermediate "ears Verified 08/13/22 18:23 sensitive" Home Meds Home Medications Medication Instructions Recorded Confirmed ondansetron 8 mg disintegrating 8 mg translingual Q6 PRN Nausea 01/19/18 08/13/22 tablet promethazine 25 mg tablet 25 mg PO Q6 PRN Nausea 03/16/20 08/13/22 ropinirole 0.25 mg tablet 0.25 mg PO BID PRN Restless Leg(S) 06/07/20 08/13/22 albuterol sulfate 90 mcg/actuation 2 puff inhalation Q4H PRN Wheezing 05/16/21 08/13/22 aerosol inhaler ibuprofen 800 mg tablet 800 mg PO TID PRN Pain 05/16/21 08/13/22 amlodipine 10 mg tablet 10 mg PO QAM 06/22/21 08/13/22 hydromorphone 4 mg tablet 4 mg PO Q6H PRN Pain 06/22/21 08/13/22 acetaminophen 500 mg tablet 500 mg PO Q6H PRN Pain 07/24/21 08/13/22 (Tylenol Extra Strength) Previous Rx's Medication Instructions Recorded losartan 25 mg tablet 25 mg PO QAM #30 tabs 06/10/20 Results & Data (ED) Vital Signs Vital Signs - 24 hr 08/13/22 16:07 08/13/22 16:49 08/13/22 17:16 Temperature 36.4 C L Temperature Source Oral Pulse Rate 80 94 H Pulse Rate [Finger] 86 Respiratory Rate 20 14 Respiratory Effort / Characteristics Non-Labored Non-Labored Spontaneous Respiratory Depth Normal Normal Respiratory Pattern Regular Blood Pressure 171/105 H Blood Pressure [Right Arm] 169/125 H Blood Pressure Mean 127 Blood Pressure Mean [Right Arm] 139 Pulse Oximetry 98 100 Oxygen Delivery Method Room Air Room Air Sepsis Recent Fever Within 48 Hours No Sepsis New/Unexplained Change in Mental Status N/A Sepsis Action Taken by Nursing No Action Required Laboratory Data 08/13/22 16:20 08/13/22 16:20 Lab Results 08/13/22 08/13/22 08/13/22 Range/Units 16:20 16:20 17:45 WBC 11.67 H (4.8-10.8) K/ul RBC 5.06 (4.70-6.10) M/uL Hgb 15.7 (14.0-18.0) g/dl Hct 43.8 (42.0-52.0) % MCV 86.6 (80.0-100.0) fL MCH 31.0 (25.0-34.0) pg MCHC 35.8 (32.0-36.0) g/dL RDW Std Deviation 38.9 (36.4-46.3) fL RDW Coeff of Che 12.5 (11.5-14.5) % Plt Count 292 (130-400) K/uL MPV 11.0 (9.4-12.4) fL Immature Gran % (Auto) 0.4 % Neut % (Auto) 68.0 % Lymph % (Auto) 20.8 % Brooke % (Auto) 9.2 % Eos % (Auto) 1.2 % Baso % (Auto) 0.4 % Neut # (Auto) 7.93 H (1.40-6.50) K/uL Lymph # (Auto) 2.43 (1.2-3.4) K/uL Brooke # (Auto) 1.07 H (0.11-0.59) K/uL Eos # (Auto) 0.14 (0-0.50) K/uL Baso # (Auto) 0.05 (0-0.2) K/uL Immature Gran # (Auto) 0.05 (0.01-0.20) K/uL Sodium 137 (136-145) mmol/L Potassium 3.8 (3.5-5.1) mmol/L Chloride 102 (98-107) mmol/L Carbon Dioxide 28 (21-32) mmol/L Anion Gap 7 (3-11) BUN 14 (6-23) mg/dl Creatinine 0.94 (0.6-1.4) mg/dl Est Cr Clr Drug Dosing 118.8 ml/min Est GFR ( Amer) 111.5 ml/min Est GFR (Non-Af Amer) 96.2 ml/min BUN/Creatinine Ratio 14.9 (10-20) Glucose 105 H (70-99(Fasting)) mg/dl Calcium 9.5 (8.6-10.3) mg/dl Total Bilirubin 0.5 (0.2-1.0) mg/dl AST 25 (13-39) U/L ALT 28 (7-52) U/L Alkaline Phosphatase 90 (34-104) U/L Troponin I High Sens 4.4 (0-20) pg/ml Total Protein 7.5 (6.0-8.3) gm/dl Albumin 4.9 (3.4-5.0) gm/dl Globulin 2.6 (2.5-4.0) gm/dl Albumin/Globulin Ratio 1.9 (0.9-2) Lipase 784 H (11-82) U/L Urine Color Yellow Urine Appearance Clear (Clear) Urine pH 7.5 (4.5-7.5) Ur Specific [place] 1.013 (1.000-1.030) Urine Protein Negative (Negative) Urine Glucose (UA) Negative (Negative) Urine Ketones Negative (Negative) Urine Blood Negative (Negative) Urine Nitrite Negative (Negative) Urine Bilirubin Negative (Negative) Urine Urobilinogen Negative (Negative) Ur Leukocyte Esterase Negative (Negative) SARS-CoV-2, RNA, NAAT (NEGATIVE) 08/13/22 Range/Units 17:45 WBC (4.8-10.8) K/ul RBC (4.70-6.10) M/uL Hgb (14.0-18.0) g/dl Hct (42.0-52.0) % MCV (80.0-100.0) fL MCH (25.0-34.0) pg MCHC (32.0-36.0) g/dL RDW Std Deviation (36.4-46.3) fL RDW Coeff of Ceh (11.5-14.5) % Plt Count (130-400) K/uL MPV (9.4-12.4) fL Immature Gran % (Auto) % Neut % (Auto) % Lymph % (Auto) % Brooke % (Auto) % Eos % (Auto) % Baso % (Auto) % Neut # (Auto) (1.40-6.50) K/uL Lymph # (Auto) (1.2-3.4) K/uL Brooke # (Auto) (0.11-0.59) K/uL Eos # (Auto) (0-0.50) K/uL Baso # (Auto) (0-0.2) K/uL Immature Gran # (Auto) (0.01-0.20) K/uL Sodium (136-145) mmol/L Potassium (3.5-5.1) mmol/L Chloride (98-107) mmol/L Carbon Dioxide (21-32) mmol/L Anion Gap (3-11) BUN (6-23) mg/dl Creatinine (0.6-1.4) mg/dl Est Cr Clr Drug Dosing ml/min Est GFR ( Amer) ml/min Est GFR (Non-Af Amer) ml/min BUN/Creatinine Ratio (10-20) Glucose (70-99(Fasting)) mg/dl Calcium (8.6-10.3) mg/dl Total Bilirubin (0.2-1.0) mg/dl AST (13-39) U/L ALT (7-52) U/L Alkaline Phosphatase (34-104) U/L Troponin I High Sens (0-20) pg/ml Total Protein (6.0-8.3) gm/dl Albumin (3.4-5.0) gm/dl Globulin (2.5-4.0) gm/dl Albumin/Globulin Ratio (0.9-2) Lipase (11-82) U/L Urine Color Urine Appearance (Clear) Urine pH (4.5-7.5) Ur Specific [place] (1.000-1.030) Urine Protein (Negative) Urine Glucose (UA) (Negative) Urine Ketones (Negative) Urine Blood (Negative) Urine Nitrite (Negative) Urine Bilirubin (Negative) Urine Urobilinogen (Negative) Ur Leukocyte Esterase (Negative) SARS-CoV-2, RNA, NAAT NEGATIVE (NEGATIVE) Administered Medications Hydromorphone HCl (Hydromorphone Inj 2 Mg/Ml Syr/Vial) 2 mg IV Q6H PRN PRN Reason: Severe Pain (Scale 7, 8, 9,10) Stop: 08/27/22 18:23 Last Admin: 08/13/22 18:34 Dose: 2 mg Documented By: MALIK Discontinued Medications Hydromorphone HCl (Hydromorphone Inj 0.5 Mg/0.5 Ml Syr) 0.5 mg IV NOW STA Stop: 08/13/22 16:39 Last Admin: 08/13/22 16:46 Dose: 0.5 mg Documented By: MALIK Sodium Chloride (Nss 1000ml) 1,000 mls @ 999 mls/hr IV .Q1H1M STA Stop: 08/13/22 17:25 Last Admin: 08/13/22 16:45 Dose: 999 mls/hr Documented By: Infusion: 08/13/22 16:45 Dose: 999 mls/hr Documented By: Admin: 08/13/22 16:27 Dose: 999 mls/hr Documented By: PA Acetaminophen (Ofirmev) 1,000 mg in 100 mls @ 400 mls/hr IV NOW STA Stop: 08/13/22 16:52 Last Infusion: 08/13/22 17:36 Dose: 0 mls/hr Documented By: Admin: 08/13/22 16:46 Dose: 400 mls/hr Documented By: MALIK Promethazine HCl (Phenergan) 12.5 mg in 50.5 mls @ 202 mls/hr IV NOW STA Stop: 08/13/22 17:25 Last Infusion: 08/13/22 18:30 Dose: 0 mls/hr Documented By: Admin: 08/13/22 17:28 Dose: 202 mls/hr Documented By: MALIK Sodium Chloride (Nss 1000ml) 1,000 mls @ 999 mls/hr IV .Q1H1M ONE Stop: 08/13/22 18:37 Last Admin: 08/13/22 17:50 Dose: 999 mls/hr Documented By: MALIK Ketorolac Tromethamine (Ketorolac 30 Mg/Ml Vial) 30 mg IV NOW ONE Stop: 08/13/22 17:16 Last Admin: 08/13/22 18:36 Dose: Not Given Documented By: MALIK Ondansetron HCl (Ondansetron Inj 2 Mg/Ml 2 Ml Vial) 4 mg IV NOW STA Stop: 08/13/22 16:39 Last Admin: 08/13/22 16:45 Dose: 4 mg Documented By: MALIK Discharge Plan Visit Data Chief Complaint: GI Assessment Stated Complaint: PANCREATITIS ED Provider: Sirena Swift Discharge Problem: Acute pancreatitis Forms Stand Alone Forms: [facility] [place] [employer] Alert Prescriptions Prescriptions: No Action ondansetron 8 mg tablet,disintegrating 8 mg Translingual Q6 PRN (Reason: Nausea) promethazine 25 mg tablet 25 mg PO Q6 PRN (Reason: Nausea) ibuprofen 800 mg tablet 800 mg PO TID PRN (Reason: Pain) Rx Instructions: Take with food albuterol sulfate 90 mcg/actuation HFA aerosol inhaler 2 puff INHALATION Q4H PRN (Reason: Wheezing) amlodipine 10 mg Tablet 10 mg PO QAM hydromorphone 4 mg Tablet 4 mg PO Q6H PRN (Reason: Pain) acetaminophen [Tylenol Extra Strength] 500 mg Tablet 500 mg PO Q6H PRN (Reason: Pain) ropinirole 0.25 mg tablet 0.25 mg PO BID PRN (Reason: Restless Leg(S)) losartan 25 mg Tablet 25 mg PO QAM Qty: 30 0RF Referrals Referrals: Hudson Romo MD [Primary Care Provider] -
[2022-08-13 17:04] LABS: BUN Creatinine Ratio 14.9 (10-20); Calcium 9.5 mg/dl (8.6-10.3); Creatinine Clr Calc Pharmacy 118.8 ml/min; Est GFR (African American) 111.5 ml/min; Est GFR (Non-African American) 96.2 ml/min; Potassium 3.8 mmol/L (3.5-5.1)
[2022-08-13] MEDS ORDERED: PROMETHAZINE 12.5 MG/50.5 ML BAG IV STA (17:11)
[2022-08-13] MEDS ORDERED: KETOROLAC 30 MG/ML VIAL IV ONE (17:15)
[2022-08-13 17:20] LABS: Albumin Globulin Ratio 1.9 (0.9-2); Albumin Level 4.9 gm/dl (3.4-5.0); Bilirubin,Total 0.5 mg/dl (0.2-1.0); Globulin 2.6 gm/dl (2.5-4.0); Total Protein 7.5 gm/dl (6.0-8.3)
[2022-08-13] MEDS ORDERED: SODIUM CHLORIDE 0.9% 1000ML 1,000 ML IV ONE (17:37)
[2022-08-13 17:57] LABS: Troponin I High Sensitivity 4.4 pg/ml (0-20)
[2022-08-13 17:59] LABS: Appearance Urine Clear (Clear); Bilirubin Urine Negative (Negative); Blood Urine Negative (Negative); Color Urine Yellow; Glucose Urine UA Negative (Negative); Ketones Urine Negative (Negative); Leukocyte Esterase Urine Negative (Negative); Nitrite Urine Negative (Negative); Protein Urine Negative (Negative); Specific Gravity Urine 1.013 (1.000-1.030); Urobilinogen Urine Negative (Negative); pH Urine 7.5 (4.5-7.5)
[2022-08-13] MEDS ORDERED: KETOROLAC TROMETHAMINE 15 MG/ML VIAL IV PRN (18:25)
[2022-08-13] MEDS ORDERED: ONDANSETRON INJ 2 MG/ML 2 ML VIAL IV PRN (18:29)
[2022-08-13] MEDS ORDERED: ACETAMINOPHEN 325 MG TAB PO PRN (18:29)
[2022-08-13] MEDS ORDERED: POLYETHYLENE (MIRALAX) 17 GM PACK PO PRN (18:29)
[2022-08-13] MEDS: HYDROmorphone INJ 2 MG/ML SYR/VIAL IV PRN (18:34)
--- NOTE | 2022-08-13 18:43 | History & Physical Report ---
Date of Service August 13, 2022 Assessment & Plan (1) Acute pancreatitis: Plan Acute pancreatitis Recurrent pancreatitis Patient presents with upper belly pain reminiscent of past pancreatitis attack Status post ERCP mild dilatation of the ventral pancreatic duct, pancreatic duct stricture, stent placement in June 2021 Admitting labs reviewed, admitting CTAP final read pending. Lipase elevated. N.p.o., IV fluids, pain management. bowel regimen w/ opiate use. GI consult Hypertension: Elevated likely secondary to acute distress from pancreatitis, continue home blood pressure medication. Can use as needed blood pressure meds if needed. DVT prophylaxis: Heparin subcu Full code History of Present Illness Chief Complaint: Upper belly pain Primary Care Provider: Hudson Romo MD 46-year-old male with PMH of sphincter of Oddi dysfunction, recurrent pancreatitis status post ERCP mild dilatation of the ventral pancreatic duct, pancreatic duct stricture, stent placement in June 2021, lap cholecystectomy, HTN, obstructive sleep apnea, restless leg syndrome, medical marijuana use, depression with anxiety presented to the ED 08/13 with abrupt onset of upper belly pain reminiscent of prior pancreatitis attack, very severe per pt, was clearly in distress, no radiation, no febrile illness or runny nose or fever or headache or dizziness, no acute changes in his bowel or bladder habit. Patient does report having constipation due to being on high-dose opiates at home, takes 4 mg tablet of hydromorphone up to 4 times a day. Patient denies chest pain or palpitation or other review of symptoms. Medications reviewed with the patient. Patient reports quitting smoking in 2000, very occasionally drinks alcohol, denies recreational drug use. Full code per my discussion with the patient and his at bedside. Allergies Allergy/AdvReac Type Severity Reaction Status Date / Time bee venom protein (honey bee) Allergy Intermediate swelling Verified 08/13/22 18:23 dexchlorpheniramine Allergy Intermediate hives Verified 08/13/22 18:23 [From Polaramine Expectorant] guaifenesin Allergy Intermediate hives Verified 08/13/22 18:23 [From Polaramine Expectorant] pseudoephedrine Allergy Intermediate hives Verified 08/13/22 18:23 [From Polaramine Expectorant] hydrochlorothiazide AdvReac Severe PANCREATITI Verified 08/13/22 18:23 S Iodinated Contrast Media AdvReac Severe SNEEZE (CT Verified 08/13/22 18:23 dye) lisinopril AdvReac Severe pancreatitis Verified 08/13/22 18:23 as per px morphine AdvReac Severe Nausea and Verified 08/13/22 18:23 vomiting ketorolac AdvReac Intermediate bleeding Verified 08/13/22 18:23 tramadol AdvReac Intermediate "ears Verified 08/13/22 18:23 sensitive" Home Medications Medication Instructions Recorded Confirmed Type ondansetron 8 mg disintegrating 8 mg translingual Q6 PRN Nausea 01/19/18 08/13/22 History tablet promethazine 25 mg tablet 25 mg PO Q6 PRN Nausea 03/16/20 08/13/22 History ropinirole 0.25 mg tablet 0.25 mg PO BID PRN Restless Leg(S) 06/07/20 08/13/22 History losartan 25 mg tablet 25 mg PO QAM #30 tabs 06/10/20 08/13/22 Rx albuterol sulfate 90 mcg/actuation 2 puff inhalation Q4H PRN Wheezing 05/16/21 08/13/22 History aerosol inhaler ibuprofen 800 mg tablet 800 mg PO TID PRN Pain 05/16/21 08/13/22 History amlodipine 10 mg tablet 10 mg PO QAM 06/22/21 08/13/22 History hydromorphone 4 mg tablet 4 mg PO Q6H PRN Pain 06/22/21 08/13/22 History acetaminophen 500 mg tablet 500 mg PO Q6H PRN Pain 07/24/21 08/13/22 History (Tylenol Extra Strength) Past Med/Surg History Medical History (Updated 07/14/22 @ 08:56 by Rafiq Deal DO) ADD (attention deficit disorder) Autistic spectrum disorder Diagnosed late in life (high functioning) Signs own consents Depression History of COVID-19 12/05/21 (home test only) Fever, headache, sore throat, cough, slight congestion, night sweats > resolved Hypertension Medical marijuana use For restless leg Mild obstructive sleep apnea Hx CPAP (currently not using d/t recall) Recurrent pancreatitis Renal cyst Restless leg syndrome Surgical History H/O hemorrhoidectomy x2 H/O wisdom tooth extraction History of cholecystectomy History of colonoscopy History of endoscopy EUS 12/11/17 Grade 2 view, MAC 3, ETT 7.5. History of ERCP last 07/22/2021 @ [facility] Dr. Say MARISCAL. History of esophagogastroduodenoscopy (EGD) 01/13/22 Grade 2 view, MAC 4, ETT 7.5. History of tonsillectomy (~1992) Family History Mother Asthma Father Prostate cancer Hypertension Other No family history of adverse response to anesthesia Social History Smoking Status: Former smoker Tobacco Type: Cigarettes Second Hand Exposure: No; Do You Dip or Chew Tobacco: No; Hx Alcohol Use: Yes Alcohol type: wine Alcohol Intake Frequency: Never Hx Substance Use: Yes Prescribed Medications: Marijuana Non-Prescribed Medications: Amphetamines and Marijuana Last Used Substance: Days (ago) Substance Use Type Other:: medical Preferred Language: Citizen Of [place] Communication Ability: Effective Chief Of Party Required: No Beliefs That Will Affect Care: None marital status: Current Living Situation: Spouse Feels Safe at Home: Yes Assistive Devices: None Review of Systems Review of Systems: Negative otherwise mentioned in HPI. Physical Exam Physical Exam: GENERAL: Alert and oriented x3. NAD, on RA. In mild to moderate distress secondary to upper belly pain HEENT: No pallor, no icterus. Pupils equal, round and reactive to light. Oral mucosa moist. NECK: No JVD, no neck masses. HEART: S1 and S2 heard. Regular rate and rhythm. No murmur, no gallop. RESPIRATORY SYSTEM: Normal AP diameter. No accessory muscle use. No wheezing, no crackles. ABDOMEN: Soft, bowel sounds present, epigastric tenderness, no distention. CENTRAL NERVOUS SYSTEM: No facial droop. Speech is clear. Obeys simple commands. Moves extremities. EXTREMITIES: No edema, no erythema seen. Results & Data Results & Data Vital Signs (Past 12 Hours) Vital Signs Temp Pulse Pulse Resp BP BP Pulse Ox 08/13/22 17:16 94 H 08/13/22 16:49 86 14 169/125 H 100 08/13/22 16:07 36.4 C L 80 20 171/105 H 98 O2 Del Method 08/13/22 17:16 08/13/22 16:49 Room Air 08/13/22 16:07 Room Air (1) Acute pancreatitis Acute pancreatitis complication: no infection or necrosis Pancreatitis type: unspecified pancreatitis type Qualified Code(s): K85.90 - Acute pancreatitis without necrosis or infection, unspecified
--- NOTE | 2022-08-13 18:57 | CT Scan Report ---
CT SCAN OF THE ABDOMEN AND PELVIS WITHOUT IV CONTRAST CLINICAL HISTORY: Epigastric abdominal pain. COMPARISON STUDY: Abdominal CT dated 07/04/2022. TECHNIQUE: CT scan of the abdomen and pelvis is performed from the lung bases to the proximal femora. Images are reviewed in the axial, sagittal, and coronal planes. IV contrast was not administered for this examination. Note that the examination was performed in suboptimal fashion without oral and IV contrast. A dose lowering technique was utilized adhering to the principles of ALARA. CT DOSE: 1358.80 mGy.cm FINDINGS: Lung bases: The heart is normal in size and without pericardial effusion. The lung bases are clear. A small hiatal hernia is noted. Liver: The unenhanced liver is normal in size and contour. The liver demonstrates diffusely diminishe d attenuation indicating steatosis. There is no intrahepatic biliary ductal dilatation. An 11 mm left lobe cyst is incidentally noted and unchanged. Gallbladder: Surgically absent noting clips in the gallbladder fossa. Spleen: Normal in size and attenuation. Pancreas: The unenhanced pancreas appears mildly edematous. There is faint peripancreatic infiltratio n. A stent is seen within the pancreatic duct. The distal duct is normal in caliber. No peripancreati c fluid collection is seen. Adrenal glands: Unremarkable. Kidneys: The unenhanced kidneys are normal in size and without hydronephrosis. There are no renal dontae culi identified. A 5.5 cm right renal cyst which contains a thin calcified septation is unchanged. A retroaortic left renal vein is incidentally noted. Abdominal vasculature: The abdominal aorta is normal in course and caliber. Bowel: There is mild colonic diverticulosis without CT evidence of acute diverticulitis. No bowel obs truction is seen. The appendix is well-visualized and normal. Peritoneum: There is no intraperitoneal free air or abdominal ascites. There is a large fat-containin g umbilical/supraumbilical hernia. Lymphadenopathy: None. Pelvic viscera: The bladder, prostate, and seminal vesicles are normal as visualized. Skeletal structures: No lytic or blastic lesions are seen. IMPRESSION: 1. A stent within the pancreatic duct is new from previous. The distal pancreatic duct is normal in c aliber. 2. Findings suggest mild acute pancreatitis. Correlate with clinical and laboratory findings. 3. No organized peripancreatic fluid collection is seen on this unenhanced examination. 4. Hepatic steatosis. 5. Mild colonic diverticulosis without CT evidence of acute diverticulitis. 6. Additional findings as above. ACT 112: Negative or not required by law. Electronically signed by: Trace Mukherjee M.D. 08/13/2022 6:55 PM
[2022-08-13] MEDS: LACTATED RINGER'S 1,000 ML IV SCH (20:35)
[2022-08-13] MEDS ORDERED: ALBUTEROL HFA 8 GM INHALER INH PRN (20:39)
[2022-08-13] MEDS ORDERED: rOPINIRole HCL 0.25 MG TABLET PO PRN (20:39)
[2022-08-13] MEDS: HEPARIN SOD 5,000 UNIT/0.5 ML VIAL SQ SCH (21:21)
[2022-08-13] MEDS: PROMETHAZINE HCL 12.5 MG in SODIUM CHLORIDE 0.9% 50 ML IV PRN (23:47)
[2022-08-14] MEDS: HYDROmorphone INJ 2 MG/ML SYR/VIAL IV PRN ×3 (00:51→19:42)
[2022-08-14] MEDS: LACTATED RINGER'S 1,000 ML IV SCH ×3 (05:06→18:40)
[2022-08-14 06:54] LABS: Hematocrit (blood only) 37.3 % (42.0-52.0); Hemoglobin 13.4 g/dl (14.0-18.0); Mean Corpuscular Hemoglobin 31.5 pg (25.0-34.0); Mean Corpuscular Hgb Conc 35.9 g/dL (32.0-36.0); Mean Corpuscular Volume 87.6 fL (80.0-100.0); Mean Platelet Volume 11.2 fL (9.4-12.4); Platelet Count 257 K/uL (130-400); RDW Coefficient of Variation 12.9 % (11.5-14.5); RDW Standard Deviation 41.1 fL (36.4-46.3); Red Blood Count 4.26 M/uL (4.70-6.10)
[2022-08-14 07:09] LABS: Calcium 8.9 mg/dl (8.6-10.3); Creatinine Clr Calc Pharmacy 122.9 ml/min; Est GFR (African American) 121.4 ml/min; Est GFR (Non-African American) 104.8 ml/min; Magnesium 1.9 mg/dl (1.7-2.4); Phosphorus 3.4 mg/dl (2.5-4.9); Potassium 3.6 mmol/L (3.5-5.1)
[2022-08-14] MEDS: PROMETHAZINE HCL 12.5 MG in SODIUM CHLORIDE 0.9% 50 ML IV PRN ×3 (07:55→21:27)
[2022-08-14] MEDS ORDERED: HYDROmorphone INJ 0.5 MG/0.5 ML SYR IV PRN (08:18)
[2022-08-14] MEDS: HEPARIN SOD 5,000 UNIT/0.5 ML VIAL SQ SCH ×2 (09:35→19:28)
[2022-08-14] MEDS: oxyCODONE/ACETAMINOPHEN 5mg/325mg TAB PO PRN ×2 (10:28→14:41)
--- NOTE | 2022-08-14 10:28 | Gastrointestinal Consultation ---
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 Had last ERCP on 07/14/2022 w extension of pancreas duct sphincterectomy, biliary sphincterectomy, and pancreas duct stent placement. He is on chronic narcotic at home for abd pain and RLQ pain control. Reports abd pain and nausea improved since admission - IVF support w LR @ 150ml/hr - NPO; will check with Dr. Deal if he would like to remove pancreatic stent while pt is admitted. If no procedures planned, will advance diet to CL - Symptomatic management for pain and nausea as needed - Would recommend avoiding escalation of opioids therapy for risk of ileus - Encourage OOB, ambulation Supervising Physician Co-Signing Physician Notes Attg add: I interviewed and examined pt, reviewed chart and labs. Pt has h/o chronic panc from ? SOD s/p recent dual sphincterotomy; chronic abd pain on chronic narcs, now admit with acute worsening of chronic pain. His lipase is increased, and a non con CT on admit was largely unremarkable. On exam, he looks well, although reports difficulty bea PO intake. Recs as above. If pain persistent, then can repeat CT with IV con. History of Present Illness Reason for Consultation: Pancreatitis Requesting Physician: Dr. Artem Fletcher Attending Physician: Dr. Clive Copeland History of Present Illness Pt is a 46 yo male w hx of Sphincter of Oddi dysfunction, recurrent pancreatitis, RLS, SUDHA, HTN, depression who presented yesterday w c/o upper abd pain and nausea. Pt had hx of ERCP 06/2021 w pancreatic sphincterectomy and pancreas duct stent placement for stricture. States he felt well for 6 months after this. Then slowly his abd pain symptoms return. He underwent a repeat ERCP on 07/14/2022. Prior pancreatic sphincterectomy was narrowed and therefore extended. Biliary sphincterectomy performed as well. Pancreatic stent placed on ventral pancreatic duct. On evaluation, labs showed mild leukocytosis, no anemia.LFTs normal w elevated lipase of 700s. CT abd/pelvis wo contrast showed pancreatic duct stent in place, acute pancreatitis noted wo organized fluid collection. He also has hepatic steatosis, colonic diverticulosis wo diverticulitis. Quit smoking tobacco in 2000. Denies ETOH. Uses medical marijuana for pain control, last used 2 days ago. He also takes Hydromorphone 2-4mg PO q6hr prn pain at home. Allergies Allergy/AdvReac Type Severity Reaction Status Date / Time bee venom protein (honey bee) Allergy Intermediate swelling Verified 08/13/22 18:23 dexchlorpheniramine Allergy Intermediate hives Verified 08/13/22 18:23 [From Polaramine Expectorant] guaifenesin Allergy Intermediate hives Verified 08/13/22 18:23 [From Polaramine Expectorant] pseudoephedrine Allergy Intermediate hives Verified 08/13/22 18:23 [From Polaramine Expectorant] hydrochlorothiazide AdvReac Severe PANCREATITI Verified 08/13/22 18:23 S Iodinated Contrast Media AdvReac Severe SNEEZE (CT Verified 08/13/22 18:23 dye) lisinopril AdvReac Severe pancreatitis Verified 08/13/22 18:23 as per px morphine AdvReac Severe Nausea and Verified 08/13/22 18:23 vomiting ketorolac AdvReac Intermediate bleeding Verified 08/13/22 18:23 tramadol AdvReac Intermediate "ears Verified 08/13/22 18:23 sensitive" Home Medications Medication Instructions Recorded Confirmed Type ondansetron 8 mg disintegrating 8 mg translingual Q6 PRN Nausea 01/19/18 08/13/22 History tablet promethazine 25 mg tablet 25 mg PO Q6 PRN Nausea 03/16/20 08/13/22 History ropinirole 0.25 mg tablet 0.25 mg PO BID PRN Restless Leg(S) 06/07/20 08/13/22 History losartan 25 mg tablet 25 mg PO QAM #30 tabs 06/10/20 08/13/22 Rx albuterol sulfate 90 mcg/actuation 2 puff inhalation Q4H PRN Wheezing 05/16/21 08/13/22 History aerosol inhaler ibuprofen 800 mg tablet 800 mg PO TID PRN Pain 05/16/21 08/13/22 History amlodipine 10 mg tablet 10 mg PO QAM 06/22/21 08/13/22 History hydromorphone 4 mg tablet 4 mg PO Q6H PRN Pain 06/22/21 08/13/22 History acetaminophen 500 mg tablet 500 mg PO Q6H PRN Pain 07/24/21 08/13/22 History (Tylenol Extra Strength) Patient History Medical History (Updated 08/13/22 @ 18:56 by Sirena Swift MD) ADD (attention deficit disorder) Autistic spectrum disorder Diagnosed late in life (high functioning) Signs own consents Depression History of COVID-19 12/05/21 (home test only) Fever, headache, sore throat, cough, slight congestion, night sweats > resolved Hypertension Medical marijuana use For restless leg Mild obstructive sleep apnea Hx CPAP (currently not using d/t recall) Recurrent pancreatitis Renal cyst Restless leg syndrome Surgical History H/O hemorrhoidectomy x2 H/O wisdom tooth extraction History of cholecystectomy History of colonoscopy History of endoscopy EUS 12/11/17 Grade 2 view, MAC 3, ETT 7.5. History of ERCP last 07/22/2021 @ [facility] Dr. Say MARISCAL. History of esophagogastroduodenoscopy (EGD) 01/13/22 Grade 2 view, MAC 4, ETT 7.5. History of tonsillectomy (~1992) Family History Mother Asthma Father Prostate cancer Hypertension Other No family history of adverse response to anesthesia Social History Smoking Status: Former smoker Tobacco Type: Cigarettes Second Hand Exposure: No; Do You Dip or Chew Tobacco: No; Tobacco Cessation Education Requested by Patient: No Hx Alcohol Use: Yes Alcohol type: wine Alcohol Intake Frequency: Never Hx Substance Use: Yes Prescribed Medications: Marijuana Non-Prescribed Medications: Amphetamines and Marijuana Last Used Substance: Days (ago) Substance Use Type Other:: Medical Marijuana. Preferred Language: Uzbek Communication Ability: Effective [employer] Required: No Beliefs That Will Affect Care: None marital status: Current Living Situation: Spouse Other Information That Helps Us Care for You: No Feels Safe at Home: Yes Safety Concerns: Feels Safe At This Time Assistive Devices: None Review of Systems Review of Systems: All systems reviewed & are unremarkable except as noted in HPI & below Physical Exam Constitutional: WD/WN, vitals as above well groomed, cooperative and comfortable Eyes: PERRL, conjunctivae normal, anicteric sclerae ENMT: external ear and nose normal, oropharynx normal Respiratory: normal respiratory effort, lungs clear to auscultation Cardiovascular: RRR, no murmur, no edema Gastrointestinal (Abdomen): epigastric + LUQ abd pain, BS present, soft. Skin: no rashes, warm and dry no jaundice Neurologic: Motor/Sensory: no asterixis Psychiatric: A+Ox3, euthymic affect Lymphatic: no lymphedema Results & Data Vital Signs (Past 12 Hours) Vital Signs Temp Pulse Resp BP Pulse Ox O2 Del Method O2 Flow Rate 08/14/22 08:06 Nasal Cannula 2 08/14/22 07:17 36.7 C 70 20 120/77 97 Nasal Cannula 2
[2022-08-14] MEDS: LOSARTAN POTASSIUM 25 MG TAB PO SCH (10:29)
[2022-08-14] MEDS: amLODIPine BESYLATE 5 MG TAB PO SCH (10:29)
[2022-08-14] MEDS: ONDANSETRON INJ 2 MG/ML 2 ML VIAL IV PRN ×2 (11:22→18:01)
[2022-08-14] MEDS ORDERED: HYDROmorphone INJ 2 MG/ML SYR/VIAL IV PRN (12:18)
--- NOTE | 2022-08-14 12:28 | Hospitalist Progress Note ---
Date of Service August 14, 2022 Assessment & Plan (1) Acute pancreatitis: Plan Acute pancreatitis Recurrent pancreatitis Patient presents with upper belly pain reminiscent of past pancreatitis attack Status post ERCP mild dilatation of the ventral pancreatic duct, pancreatic duct stricture, stent placement in June 2021 CTAP with mild acute pancreatitis. Continue with n.p.o., IV fluids, pain management. bowel regimen w/ opiate use. GI onboard, appreciate recommendations Hypertension: Elevated likely secondary to acute distress from pancreatitis, continue home blood pressure medication. Can use as needed blood pressure meds if needed. Lately better controlled. DVT prophylaxis: Heparin subcu Full code Admission and Anticipated Discharge Date Admission Date: August 13, 2022 Subjective Patient seen and examined at bedside as a follow-up for recurrent pancreatitis. Patient was lying in bed, on room air, NAD, reports abdominal pain getting better, advised to use p.o. medications for moderate to mild pain reserving IV medication for severe pain. Patient is NPO. GI evaluated, appreciate recommendation. Patient denies any fever/headache/sore throat/chest pain/palpitations/other review of symptoms. Physical Exam Physical Exam: GENERAL: Alert and oriented x3. NAD, on RA. NAD. HEENT: No pallor, no icterus. Pupils equal, round and reactive to light. Oral mucosa moist. NECK: No JVD, no neck masses. HEART: S1 and S2 heard. Regular rate and rhythm. No murmur, no gallop. RESPIRATORY SYSTEM: Normal AP diameter. No accessory muscle use. No wheezing, no crackles. ABDOMEN: Soft, bowel sounds present, epigastric tenderness, no distention. CENTRAL NERVOUS SYSTEM: No facial droop. Speech is clear. Obeys simple commands. Moves extremities. EXTREMITIES: No edema, no erythema seen. Results & Data Results & Data Vital Signs (Past 12 Hours) Vital Signs Temp Pulse Resp BP Pulse Ox O2 Del Method O2 Flow Rate 08/14/22 08:06 Nasal Cannula 2 08/14/22 07:17 36.7 C 70 20 120/77 97 Nasal Cannula 2 (1) Acute pancreatitis Acute pancreatitis complication: no infection or necrosis Pancreatitis type: unspecified pancreatitis type Qualified Code(s): K85.90 - Acute pancreatitis without necrosis or infection, unspecified
--- NOTE | 2022-08-14 13:18 | Electrocardiogram Report ---
Test Reason : Blood Pressure : / mmHG Vent. Rate : 075 BPM Atrial Rate : 075 BPM P-R Int : 122 ms QRS Dur : 108 ms QT Int : 398 ms P-R-T Axes : 057 -14 061 degrees QTc Int : 444 ms Normal sinus rhythm with sinus arrhythmia Normal ECG When compared with ECG of 04-JUL-2022 09:29, No significant change was found Confirmed by Roni Edwards ([id number]) on 08/14/2022 1:18:08 PM Referred By: Sirena Swift Confirmed By:Roni Edwards
[2022-08-14 18:27] LABS: Amphetamines+Metham, Urine Neg (Neg); Barbiturates, Urine Neg (Neg); Benzodiazepine, Urine Neg (Neg); Cocaine, Urine Neg (Neg); MDMA (Ecstacy), Urine Neg (Neg); Methadone, Urine Neg (Neg); Opiate, Urine Pos (Neg); Phencyclidine, Urine Neg (Neg)
[2022-08-14] MEDS: DOCUSATE SODIUM 100 MG CAP PO SCH (19:47)
[2022-08-15] MEDS: LACTATED RINGER'S 1,000 ML IV SCH ×4 (01:09→21:17)
[2022-08-15] MEDS: oxyCODONE/ACETAMINOPHEN 5mg/325mg TAB PO PRN ×2 (01:11→11:48)
[2022-08-15] MEDS: ONDANSETRON INJ 2 MG/ML 2 ML VIAL IV PRN ×3 (03:12→18:12)
[2022-08-15] MEDS: HYDROmorphone INJ 2 MG/ML SYR/VIAL IV PRN ×4 (03:12→21:16)
[2022-08-15 06:08] LABS: Hematocrit (blood only) 37.8 % (42.0-52.0); Hemoglobin 13.5 g/dl (14.0-18.0); Mean Corpuscular Hemoglobin 31.4 pg (25.0-34.0); Mean Corpuscular Hgb Conc 35.7 g/dL (32.0-36.0); Mean Corpuscular Volume 87.9 fL (80.0-100.0); Platelet Count 240 K/uL (130-400); RDW Coefficient of Variation 12.8 % (11.5-14.5); RDW Standard Deviation 41.2 fL (36.4-46.3); White Blood Count 8.67 K/ul (4.8-10.8)
[2022-08-15 06:21] LABS: BUN Creatinine Ratio 8.2 (10-20); Creatinine Clr Calc Pharmacy 105.2 ml/min; Est GFR (African American) 107.3 ml/min; Est GFR (Non-African American) 92.6 ml/min; Magnesium 1.8 mg/dl (1.7-2.4); Phosphorus 3.7 mg/dl (2.5-4.9); Potassium 3.8 mmol/L (3.5-5.1)
[2022-08-15] MEDS: PROMETHAZINE HCL 12.5 MG in SODIUM CHLORIDE 0.9% 50 ML IV PRN ×3 (07:02→21:16)
[2022-08-15] MEDS: HEPARIN SOD 5,000 UNIT/0.5 ML VIAL SQ SCH ×2 (08:15→20:47)
[2022-08-15] MEDS: LOSARTAN POTASSIUM 25 MG TAB PO SCH (08:15)
[2022-08-15] MEDS: amLODIPine BESYLATE 5 MG TAB PO SCH (08:16)
[2022-08-15] MEDS: DOCUSATE SODIUM 100 MG CAP PO SCH ×2 (09:45→20:47)
--- NOTE | 2022-08-15 09:52 | Gastroenterology Progress Note ---
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 Had last ERCP on 07/14/2022 w extension of pancreas duct s phincterectomy, biliary sphincterectomy, and pancreas duct stent placement. He is on chronic narcotic at home for abd pain and RLQ pain control. Reports abd pain and nausea improved since admission. - IVF support w LR @ 150ml/hr; may dc once able to tolerate PO intake. - CL diet, advance as tolerated to low fat - Symptomatic management for pain and nausea as needed - Would recommend avoiding escalation of opioids therapy for risk of ileus - Encourage OOB, ambulation - Discuss possible implication of marijuana use and pancreatitis. - Check for micronutrient deficiency. Start Creon 2 tabs w meals, and add multivitamin - GI to sign off; pls recall prn Admission and Anticipated Discharge Date Admission Date: August 13, 2022 Supervising Physician Co-Signing Physician Notes Attg add: Pt continues to complain of pain and poor tolerance of PO. On exam, he looks well, but appears hyperesthetic - he winces even with light abdominal touch. I discussed with Dr. Deal, who feels that pain may be related to MJ use, or possibly from amlodipine or Requip. Recommendations as above. Subjective Reports he's still having nausea. Tolerating CL diet mildly, doesn't want to advance to solids. Had BM this AM, passing flatus Review of Systems Review of Systems: All systems reviewed & are unremarkable except as noted in HPI & below Physical Exam Constitutional: WD/WN, vitals as above well groomed, cooperative and comfortable Eyes: PERRL, conjunctivae normal, anicteric sclerae ENMT: external ear and nose normal, oropharynx normal Respiratory: normal respiratory effort, lungs clear to auscultation Cardiovascular: RRR, no murmur, no edema Gastrointestinal (Abdomen): TTP LUQ, soft, BS hypoactive Skin: no rashes, warm and dry no jaundice Psychiatric: A+Ox3, euthymic affect Lymphatic: no lymphedema Results & Data Vital Signs (Past 12 Hours) Vital Signs Temp Pulse Resp BP Pulse Ox O2 Del Method 08/15/22 07:49 36.6 C 61 16 102/61 95 Room Air
[2022-08-15] MEDS: PANCREAZE (LIPASE 10,500U) CAP PO SCH ×2 (12:16→16:40)
[2022-08-15] MEDS: MULTIVITAMIN TAB PO SCH (12:16)
[2022-08-15 13:21] LABS: Vitamin B12 617 pg/ml (180-914)
[2022-08-15 13:24] LABS: Vitamin D, 25 Hydrox 29.3 ng/ml (30-100)
--- NOTE | 2022-08-15 16:51 | Hospitalist Progress Note ---
Date of Service August 15, 2022 Assessment & Plan (1) Acute pancreatitis: Plan Acute pancreatitis Recurrent pancreatitis Patient presents with upper belly pain reminiscent of past pancreatitis attack Status post ERCP mild dilatation of the ventral pancreatic duct, pancreatic duct stricture, stent placement in June 2021 CTAP with mild acute pancreatitis. Adv diet as bea, IV fluids, pain management. bowel regimen w/ opiate use. GI onboard, appreciate recommendations, creon started. Hypertension: Elevated likely secondary to acute distress from pancreatitis, continue home blood pressure medication. Can use as needed blood pressure meds if needed. Lately better controlled. DVT prophylaxis: Heparin subcu Full code Dispo: pending abd pain improvement and tolerance of soft diet. Admission and Anticipated Discharge Date Admission Date: August 13, 2022 Subjective Patient seen and examined at bedside as a follow-up for recurrent pancreatitis. Patient was lying in bed, on room air, NAD, reports abdominal pain getting better, advised to use p.o. medications for moderate to mild pain reserving IV medication for severe pain. Tolerating clears, advance as to. GI evaluated, appreciate recommendation. Patient denies any fever/headache/sore throat/chest pain/palpitations/other review of symptoms. Pt does report some nausea. Physical Exam Physical Exam: GENERAL: Alert and oriented x3. NAD, on RA. NAD. HEENT: No pallor, no icterus. Pupils equal, round and reactive to light. Oral mucosa moist. NECK: No JVD, no neck masses. HEART: S1 and S2 heard. Regular rate and rhythm. No murmur, no gallop. RESPIRATORY SYSTEM: Normal AP diameter. No accessory muscle use. No wheezing, no crackles. ABDOMEN: Soft, bowel sounds present, epigastric tenderness, no distention. CENTRAL NERVOUS SYSTEM: No facial droop. Speech is clear. Obeys simple commands. Moves extremities. EXTREMITIES: No edema, no erythema seen. Results & Data Results & Data Vital Signs (Past 12 Hours) Vital Signs Temp Pulse Resp BP Pulse Ox O2 Del Method 08/15/22 15:16 36.6 C 67 14 119/82 92 Room Air 08/15/22 07:49 36.6 C 61 16 102/61 95 Room Air (1) Acute pancreatitis Acute pancreatitis complication: no infection or necrosis Pancreatitis type: unspecified pancreatitis type Qualified Code(s): K85.90 - Acute pancreatitis without necrosis or infection, unspecified
[2022-08-16] MEDS: HYDROmorphone INJ 2 MG/ML SYR/VIAL IV PRN ×2 (05:59→15:15)
[2022-08-16] MEDS: ONDANSETRON INJ 2 MG/ML 2 ML VIAL IV PRN ×2 (05:59→15:15)
[2022-08-16] MEDS: LACTATED RINGER'S 1,000 ML IV SCH ×2 (07:19→17:01)
[2022-08-16] MEDS: PANCREAZE (LIPASE 10,500U) CAP PO SCH ×3 (07:59→17:03)
[2022-08-16] MEDS: MULTIVITAMIN TAB PO SCH (08:43)
[2022-08-16] MEDS: DOCUSATE SODIUM 100 MG CAP PO SCH ×2 (08:43→20:04)
[2022-08-16] MEDS: HEPARIN SOD 5,000 UNIT/0.5 ML VIAL SQ SCH ×2 (08:43→20:04)
[2022-08-16] MEDS: amLODIPine BESYLATE 5 MG TAB PO SCH (08:43)
[2022-08-16] MEDS: LOSARTAN POTASSIUM 25 MG TAB PO SCH (08:43)
[2022-08-16] MEDS: PROMETHAZINE HCL 12.5 MG in SODIUM CHLORIDE 0.9% 50 ML IV PRN ×2 (09:43→20:40)
[2022-08-16] MEDS: oxyCODONE/ACETAMINOPHEN 5mg/325mg TAB PO PRN (09:46)
[2022-08-16] MEDS: HYDROmorphone HCL 2 MG TAB PO PRN ×2 (10:50→20:03)
--- NOTE | 2022-08-16 14:18 | Hospitalist Progress Note ---
Date of Service August 16, 2022 Assessment & Plan (1) Acute pancreatitis: Plan Acute pancreatitis Recurrent pancreatitis Patient presents with upper belly pain reminiscent of past pancreatitis attack Status post ERCP mild dilatation of the ventral pancreatic duct, pancreatic duct stricture, stent placement in June 2021 CTAP with mild acute pancreatitis. Adv diet as bea, IV fluids, pain management. bowel regimen w/ opiate use. GI onboard, appreciate recommendations, creon started. Complaining of more pain following food-strongly advised to take a small amount of food at 1 time and may be multiple times a day His home pain medication was restarted with Dilaudid 4 mg every 6 hourly as needed and oxycodone discontinued He is not yet ready to be discharged Hypertension: Elevated likely secondary to acute distress from pancreatitis, continue home blood pressure medication. Can use as needed blood pressure meds if needed. Blood pressure seems to be controlled and remained hemodynamically stable DVT prophylaxis: Heparin subcu Full code Dispo: pending abd pain improvement and tolerance of soft diet. Admission and Anticipated Discharge Date Admission Date: August 13, 2022 Subjective 08/16/2022 The patient was seen and examined in medical floor He has been complaining of more abdominal pain with food associated with nausea but no vomiting Still having diarrhea Denies any other symptoms Review of Systems Review of Systems: All systems reviewed and are unremarkable except as noted below Gastrointestinal: Epigastric discomfort/pain with nausea and is worse with food Physical Exam Physical Exam: Lying in bed comfortably Constitutional: well nourished and + ill appearing; no acute distress Eyes: PERRL, conjunctivae normal, anicteric sclerae ENMT: external ear and nose normal, oropharynx normal Neck: trachea midline, no thyromegaly Respiratory: no respiratory distress Auscultation: lungs clear to auscultation bilaterally Cardiovascular: Rate/Rhythm: regular rate and regular rhythm; not tachycardic Heart Sounds: normal S1 and normal S2; no murmur Extremities: no edema Gastrointestinal (Abdomen): Inspection/Auscultation: normal bowel sounds; abdomen not distended Percussion/Palpation: + abdomen tender (Epigastrium) and abdomen soft; no guarding and abdomen not rigid Musculoskeletal: No acute arthritis involving any joint Neurologic: Alert, awake and oriented x3, no focal sensory and/or motor deficit appreciated Lymphatic: no cervical or axillary lymphadenopathy Results & Data Results & Data Vital Signs (Past 12 Hours) Vital Signs Temp Pulse Resp BP Pulse Ox O2 Del Method 08/16/22 07:05 36.9 C 80 18 135/93 96 Room Air Medications Administered Current Inpatient Medications Acetaminophen (Acetaminophen 325 Mg Tab) 650 mg PO Q4H PRN PRN Reason: Pain or Fever Stop: 09/12/22 18:28 Albuterol (Albuterol Hfa 8 Gm Inhaler) 2 puffs INH Q4H PRN PRN Reason: Wheezing Stop: 09/12/22 20:38 Amlodipine Besylate (Amlodipine Besylate 5 Mg Tab) 10 mg PO QAM DEE DEE Stop: 09/13/22 08:59 Last Admin: 08/16/22 08:43 Dose: 10 mg Lipase/Protease/Amylase (Pancreaze (Lipase 10,500u) Cap) 2 cap PO TIDM DEE DEE Stop: 09/14/22 11:59 Last Admin: 08/16/22 12:16 Dose: 2 cap Docusate Sodium (Docusate Sodium 100 Mg Cap) 100 mg PO BID DEE DEE Stop: 09/13/22 20:59 Last Admin: 08/16/22 08:43 Dose: Not Given Heparin Sodium (Porcine) (Heparin Sod 5,000 Unit/0.5 Ml Vial) 5,000 units SQ Q12 DEE DEE Stop: 09/12/22 20:59 Last Admin: 08/16/22 08:43 Dose: Not Given Hydromorphone HCl (Hydromorphone Inj 0.5 Mg/0.5 Ml Syr) 0.5 mg IV ONE PRN PRN Reason: moderate pain Stop: 08/28/22 08:17 Hydromorphone HCl (Hydromorphone Inj 2 Mg/Ml Syr/Vial) 1.5 mg IV Q6H PRN PRN Reason: Severe Pain (Scale 7, 8, 9,10) Stop: 08/27/22 18:23 Last Admin: 08/16/22 05:59 Dose: 1.5 mg Hydromorphone HCl (Hydromorphone Hcl 2 Mg Tab) 4 mg PO Q6H PRN PRN Reason: Pain Stop: 08/30/22 10:45 Last Admin: 08/16/22 10:50 Dose: 4 mg Lactated Ringer's (Lr) 1,000 mls @ 100 mls/hr IV .Q10H DEE DEE Stop: 09/12/22 18:29 Last Admin: 08/16/22 07:19 Dose: 100 mls/hr Promethazine HCl 12.5 mg/ (Sodium Chloride) 50.5 mls @ 202 mls/hr IV Q6H PRN PRN Reason: Nausea And Vomiting Stop: 09/12/22 21:27 Last Infusion: 08/16/22 10:00 Dose: Infused Losartan Potassium (Losartan Potassium 25 Mg Tab) 25 mg PO QAM [facility] Stop: 09/13/22 08:59 Last Admin: 08/16/22 08:43 Dose: 25 mg Multivitamins (Multivitamin Tab) 1 tab PO QAM [facility] Stop: 09/14/22 11:59 Last Admin: 08/16/22 08:43 Dose: 1 tab Ondansetron HCl (Ondansetron Inj 2 Mg/Ml 2 Ml Vial) 4 mg IV Q6H PRN PRN Reason: Nausea And Vomiting Stop: 09/13/22 10:57 Last Admin: 08/16/22 05:59 Dose: 4 mg Polyethylene Glycol (Polyethylene (Miralax) 17 Gm Pack) 17 gm PO DAILY PRN PRN Reason: Constipation Stop: 09/12/22 18:28 Ropinirole HCl (Ropinirole Hcl 0.25 Mg Tablet) 0.25 mg PO BID PRN PRN Reason: Restless Leg(S) Stop: 09/12/22 20:38 (1) Acute pancreatitis Acute pancreatitis complication: no infection or necrosis Pancreatitis type: unspecified pancreatitis type Qualified Code(s): K85.90 - Acute pancreatitis without necrosis or infection, unspecified
[2022-08-17] MEDS: HYDROmorphone INJ 2 MG/ML SYR/VIAL IV PRN ×2 (02:39→12:04)
[2022-08-17] MEDS: LACTATED RINGER'S 1,000 ML IV SCH ×2 (02:44→12:44)
[2022-08-17] MEDS: HYDROmorphone HCL 2 MG TAB PO PRN ×2 (06:30→15:13)
[2022-08-17 07:25] LABS: Basophils # (auto) 0.04 K/uL (0-0.2); Basophils % (auto) 0.4 %; Eosinophils # (auto) 0.34 K/uL (0-0.50); Eosinophils % (auto) 3.7 %; Hematocrit (blood only) 40.2 % (42.0-52.0); Hemoglobin 14.3 g/dl (14.0-18.0); Immature Granulocytes # (auto) 0.02 K/uL (0.01-0.20); Immature Granulocytes % (auto) 0.2 %; Lymphocytes # (auto) 2.98 K/uL (1.2-3.4); Lymphocytes % (auto) 32.8 %; Mean Corpuscular Hemoglobin 31.1 pg (25.0-34.0); Mean Corpuscular Hgb Conc 35.6 g/dL (32.0-36.0); Mean Corpuscular Volume 87.4 fL (80.0-100.0); Mean Platelet Volume 10.7 fL (9.4-12.4); Monocytes # (auto) 1.16 K/uL (0.11-0.59); Monocytes % (auto) 12.8 %; Neutrophils # (auto) 4.54 K/uL (1.40-6.50); Neutrophils % (auto) 50.1 %; Platelet Count 255 K/uL (130-400); RDW Coefficient of Variation 12.4 % (11.5-14.5); RDW Standard Deviation 39.3 fL (36.4-46.3); White Blood Count 9.08 K/ul (4.8-10.8)
[2022-08-17 07:43] LABS: BUN Creatinine Ratio 8.5 (10-20); Calcium 9.3 mg/dl (8.6-10.3); Creatinine Clr Calc Pharmacy 108.6 ml/min; Est GFR (African American) 111.5 ml/min; Est GFR (Non-African American) 96.2 ml/min; Magnesium 1.8 mg/dl (1.7-2.4); Phosphorus 3.7 mg/dl (2.5-4.9); Potassium 3.8 mmol/L (3.5-5.1)
[2022-08-17] MEDS: DOCUSATE SODIUM 100 MG CAP PO SCH (08:05)
[2022-08-17] MEDS: PANCREAZE (LIPASE 10,500U) CAP PO SCH ×2 (08:05→12:06)
[2022-08-17] MEDS: HEPARIN SOD 5,000 UNIT/0.5 ML VIAL SQ SCH (08:05)
[2022-08-17] MEDS: MULTIVITAMIN TAB PO SCH (08:06)
[2022-08-17] MEDS: LOSARTAN POTASSIUM 25 MG TAB PO SCH (08:06)
[2022-08-17] MEDS: amLODIPine BESYLATE 5 MG TAB PO SCH (08:06)
[2022-08-17 11:22] LABS: Codeine Urine NEGATIVE ng/mL (<50); Hydrocodone Urine NEGATIVE ng/mL (<50); Hydromor Urine 309 ng/mL (<50); Marijuana Quant, GCMS Urine 182 ng/mL (<5); Morphine Urine NEGATIVE ng/mL (<50); Norhydrocodone Conf Ur NEGATIVE ng/mL (<50); Noroxycodone Urine 226 ng/mL (<50); Oxycodone Urine 190 ng/mL (<50); Oxymorph Urine 190 ng/mL (<50)
--- NOTE | 2022-08-17 14:39 | Hospitalist Progress Note ---
Date of Service August 17, 2022 Assessment & Plan (1) Acute pancreatitis: Plan Acute pancreatitis Recurrent pancreatitis Patient presents with upper belly pain reminiscent of past pancreatitis attack Status post ERCP mild dilatation of the ventral pancreatic duct, pancreatic duct stricture, stent placement in June 2021 CTAP with mild acute pancreatitis. Adv diet as bea, IV fluids, pain management. bowel regimen w/ opiate use. GI onboard, appreciate recommendations, creon started. Complaining of more pain following food-strongly advised to take a small amount of food at 1 time and may be multiple times a day His home pain medication was restarted with Dilaudid 4 mg every 6 hourly as needed and oxycodone discontinued Clinically much better today Has been tolerating regular diet without significant symptoms Will be discharged home this afternoon Hypertension: Elevated likely secondary to acute distress from pancreatitis, continue home blood pressure medication. Can use as needed blood pressure meds if needed. Blood pressure seems to be controlled and remained hemodynamically stable DVT prophylaxis: Heparin subcu Full code Dispo: pending abd pain improvement and tolerance of soft diet. Admission and Anticipated Discharge Date Admission Date: August 13, 2022 Subjective 08/16/2022 The patient was seen and examined in medical floor He has been complaining of more abdominal pain with food associated with nausea but no vomiting Still having diarrhea Denies any other symptoms 08/17/2022 The patient was seen and examined in medical floor He has been stable with minimal symptoms of nausea without any vomiting He has been tolerating regular diet without significant abdominal pain He wants to go home today Review of Systems Review of Systems: All systems reviewed and are unremarkable except as noted below Gastrointestinal: Epigastric discomfort/pain with nausea and is worse with food Physical Exam Physical Exam: Lying in bed comfortably Constitutional: well nourished and + ill appearing; no acute distress Eyes: PERRL, conjunctivae normal, anicteric sclerae ENMT: external ear and nose normal, oropharynx normal Neck: trachea midline, no thyromegaly Respiratory: no respiratory distress Auscultation: lungs clear to auscultation bilaterally Cardiovascular: Rate/Rhythm: regular rate and regular rhythm; not tachycardic Heart Sounds: normal S1 and normal S2; no murmur Extremities: no edema Gastrointestinal (Abdomen): Inspection/Auscultation: normal bowel sounds; abdomen not distended Percussion/Palpation: + abdomen tender (Epigastrium) and abdomen soft; no guarding and abdomen not rigid Musculoskeletal: No acute arthritis involving any joint Neurologic: normal touch/pain/proprioception and moves all extremities; no focal motor deficits Lymphatic: no cervical or axillary lymphadenopathy Results & Data Results & Data Vital Signs (Past 12 Hours) Vital Signs Temp Pulse Resp BP Pulse Ox O2 Del Method 08/17/22 07:06 36.8 C 65 16 134/90 95 Room Air Laboratory Results Short CBC 08/17/22 Range/Units 06:47 WBC 9.08 (4.8-10.8) K/ul Hgb 14.3 (14.0-18.0) g/dl Hct 40.2 L (42.0-52.0) % Plt Count 255 (130-400) K/uL [facility] 08/17/22 06:47 Sodium 138 Potassium 3.8 Chloride 101 Carbon Dioxide 31 BUN 8 Creatinine 0.94 Glucose 108 H Calcium 9.3 (1) Acute pancreatitis Acute pancreatitis complication: no infection or necrosis Pancreatitis type: unspecified pancreatitis type Qualified Code(s): K85.90 - Acute pancreatitis without necrosis or infection, unspecified
--- NOTE | 2022-08-17 17:11 | Discharge Summary ---
Date of Service August 17, 2022 Admission HPI Per Admitting Provider 46-year-old male with PMH of sphincter of Oddi dysfunction, recurrent pancreatitis status post ERCP mild dilatation of the ventral pancreatic duct, pancreatic duct stricture, stent placement in June 2021, lap cholecystectomy, HTN, obstructive sleep apnea, restless leg syndrome, medical marijuana use, depression with anxiety presented to the ED 08/13 with abrupt onset of upper belly pain reminiscent of prior pancreatitis attack, very severe per pt, was clearly in distress, no radiation, no febrile illness or runny nose or fever or headache or dizziness, no acute changes in his bowel or bladder habit. Patient does report having constipation due to being on high-dose opiates at home, takes 4 mg tablet of hydromorphone up to 4 times a day. Patient denies chest pain or palpitation or other review of symptoms. Medications reviewed with the patient. Patient reports quitting smoking in 2000, very occasionally drinks alcohol, denies recreational drug use. Full code per my discussion with the patient and his at bedside. Admission Exam Per Admitting Provider Physical Exam: GENERAL: Alert and oriented x3. NAD, on RA. In mild to moderate distress secondary to upper belly pain HEENT: No pallor, no icterus. Pupils equal, round and reactive to light. Oral mucosa moist. NECK: No JVD, no neck masses. HEART: S1 and S2 heard. Regular rate and rhythm. No murmur, no gallop. RESPIRATORY SYSTEM: Normal AP diameter. No accessory muscle use. No wheezing, no crackles. ABDOMEN: Soft, bowel sounds present, epigastric tenderness, no distention. CENTRAL NERVOUS SYSTEM: No facial droop. Speech is clear. Obeys simple commands. Moves extremities. EXTREMITIES: No edema, no erythema seen. Principal Diagnosis Acute recurrent pancreatitis Discharge Exam Lying in bed comfortably Constitutional well nourished and + ill appearing; no acute distress Eyes PERRL, conjunctivae normal, anicteric sclerae ENMT external ear and nose normal, oropharynx normal Neck trachea midline, no thyromegaly Respiratory no respiratory distress Auscultation: lungs clear to auscultation bilaterally Cardiovascular Rate/Rhythm: regular rate and regular rhythm; not tachycardic Heart Sounds: normal S1 and normal S2; no murmur Extremities: no edema Gastrointestinal (Abdomen) Inspection/Auscultation: normal bowel sounds; abdomen not distended Percussion/Palpation: + abdomen tender (Epigastrium) and abdomen soft; no guarding and abdomen not rigid Neurologic normal touch/pain/proprioception and moves all extremities; no focal motor deficits Lymphatic no cervical or axillary lymphadenopathy Discharge Data Allergies Allergy/AdvReac Type Severity Reaction Status Date / Time bee venom protein (honey bee) Allergy Intermediate swelling Verified 08/13/22 18:23 dexchlorpheniramine Allergy Intermediate hives Verified 08/13/22 18:23 [From Polaramine Expectorant] guaifenesin Allergy Intermediate hives Verified 08/13/22 18:23 [From Polaramine Expectorant] pseudoephedrine Allergy Intermediate hives Verified 08/13/22 18:23 [From Polaramine Expectorant] hydrochlorothiazide AdvReac Severe PANCREATITI Verified 08/13/22 18:23 S Iodinated Contrast Media AdvReac Severe SNEEZE (CT Verified 08/13/22 18:23 dye) lisinopril AdvReac Severe pancreatitis Verified 08/13/22 18:23 as per px morphine AdvReac Severe Nausea and Verified 08/13/22 18:23 vomiting ketorolac AdvReac Intermediate bleeding Verified 08/13/22 18:23 tramadol AdvReac Intermediate "ears Verified 08/13/22 18:23 sensitive" Consultations 08/13/22 17:44 ED Decision to Admit Stat 08/13/22 18:27 Consult Gastroenterology Routine Ordered Studies 08/13/22 17:17 CT Abd and Pelvis [CT abd pelvis wo con] Stat Hospital Course (1) Acute pancreatitis: Plan Acute pancreatitis Recurrent pancreatitis Patient presents with upper belly pain reminiscent of past pancreatitis attack Status post ERCP mild dilatation of the ventral pancreatic duct, pancreatic duct stricture, stent placement in June 2021 CTAP with mild acute pancreatitis. Adv diet as bea, IV fluids, pain management. bowel regimen w/ opiate use. GI onboard, appreciate recommendations, creon started. Complaining of more pain following food-strongly advised to take a small amount of food at 1 time and may be multiple times a day His home pain medication was restarted with Dilaudid 4 mg every 6 hourly as needed and oxycodone discontinued Clinically much better today Has been tolerating regular diet without significant symptoms Will be discharged home this afternoon Hypertension: Elevated likely secondary to acute distress from pancreatitis, continue home blood pressure medication. Can use as needed blood pressure meds if needed. Blood pressure seems to be controlled and remained hemodynamically stable DVT prophylaxis: Heparin subcu Full code Dispo: pending abd pain improvement and tolerance of soft diet. Total Time Total Time Spent Total Time Spent (In Minutes): 35 minutes Discharge Plan Discharge Items Patient Disposition: Home - Self-Care Reason For Visit: UPPER BELLY PAIN Discharge Diagnosis: Acute recurrent pancreatitis Condition on Discharge: Good Activity: Resume your previous activity Non-emergency contact: Primary Care Provider Call non-emergency contact if: you have any medication questions and your symptoms worsen Follow-up/Referrals: Hudson Romo MD [Primary Care Provider] - (Date & Time 08/22/2022 3:20 PM Provider Hudson Romo MD Department Family [facility] ) Diet: Low Fat Addtl Attending Provider Instructions: Please take your meals as advised Try to use less of your narcotic pain medication Please give appointment with your healthcare provider Pending Studies at Discharge: No Stand-Alone Forms: My [employer], Smoking Cessation Medications and DC Order Prescriptions: [place] 36,000-114,000- 180,000 unit Capsule,Delayed Release(Dr/Ec) 2 cap PO TIDM 30 Days Qty: 60 0RF Continued ondansetron 8 mg tablet,disintegrating 8 mg Translingual Q6 PRN (Reason: Nausea) promethazine 25 mg tablet 25 mg PO Q6 PRN (Reason: Nausea) ibuprofen 800 mg tablet 800 mg PO TID PRN (Reason: Pain) Rx Instructions: Take with food albuterol sulfate 90 mcg/actuation HFA aerosol inhaler 2 puff INHALATION Q4H PRN (Reason: Wheezing) amlodipine 10 mg Tablet 10 mg PO QAM hydromorphone 4 mg Tablet 4 mg PO Q6H PRN (Reason: Pain) acetaminophen [Tylenol Extra Strength] 500 mg Tablet 500 mg PO Q6H PRN (Reason: Pain) ropinirole 0.25 mg tablet 0.25 mg PO BID PRN (Reason: Restless Leg(S)) losartan 25 mg Tablet 25 mg PO QAM Qty: 30 0RF Discharge Orders: Discharge Order (Routine); Ordered 08/17/22 Ordered By: Félix Redmond/Other Patient Handouts: Understanding Pancreatitis Admission Data Admit Date/Time: 08/13/22 18:29 Attending Provider: Félix Faust Admit Provider: Artem Fletcher Primary Care Provider: Hudson Romo Other Providers: Artem Fletcher ; Jaswinder Aviles ; Cristian Philippe ; Emilie Laguna ; Charis Carlos ; Maira Figueroa ; Destiny Smith ; Marc Solis ; Samy Mao ; Rafiq Deal ; Clive Copeland ; Anthony Best ; Lisa Galvin ; Lisa Brewster ; Rebekah Grant ; Ashley Posada ; Reese Pineda ; Francisco Hill ; Segundo Carney ; Ladonna Turner ; Baldev Jarrell Jr Other Interventions: Discharge Summary Assessment (RN) Last Done: 08/17/22 14:50
[2022-08-18 14:12] LABS: Methyl Alcohol Comment WHOLE BLOOD; Methyl Alcohol Level NONE DETECTED (NONE DETECTED)
== END 2022-08-17 16:16 | disposition home or self-care (01) | DRG 439 ==
LOC: ED 16:04 → 3W 18:29 → SUATTDRO 18:29 → 3W 20:20